=== PATIENT | male | born 1960 | race Caucasian/White ===

== ENCOUNTER 2018-08-12 08:32 | Inpatient (IN) | payer BC ==
[2018-08-12] MEDS ORDERED: Furosemide 100 MG/10 ML VIAL ONE (08:49)
[2018-08-12] MEDS ORDERED: Diltiazem 125 MG/25 ML ONE (08:50)
[2018-08-12] MEDS ORDERED: Nitroglycerin 2% Ointment 1 INCH/1 GM Packet ONE (08:50)
--- NOTE | 2018-08-12 09:08 | RAD ---
FFrontal radiograph chest: 08/12/2018 Comparison: 05/04/2012 History: Difficulty breathing, tachycardia FINDINGS: New pulmonary vascular congestion with new interstitial opacity in the lung bases and perih ilar regions. New bilateral small pleural effusions. New alveolar opacity in bilateral lung bases. IMPRESSION: Findings suggesting interval development of pulmonary edema. Follow-up imaging following treatment to document resolution is advised.
[2018-08-12] MEDS ORDERED: Diltiazem HCl 125 MG, Admixture Fee 1 EACH in Sodium Chloride 0.9% 100 ML IVPB SCH (09:15)
[2018-08-12 09:22] LABS: #Basophils 0.1 thou/uL (0.0-0.2); #Eosinphils 0.2 thou/uL (0.0-0.7); #Lymphocytes 1.7 thou/uL (1.20-3.40); #Monocytes 0.9 thou/uL (0.11-0.59); #Neutrophils 9.8 thou/uL (1.40-6.50); %Basophils 0.5 % (0.0-1.0); %Eosinophils 1.3 % (0.0-10.0); %Lymphocytes 13.7 % (21.0-51.0); %Monocytes 7.1 % (0.0-10.0); %Neutrophils 77.4 % (42.0-75.0); Hemoglobin 13.2 g/dL (14.0-18.0); Mean Corpuscular HGB CONC 32.6 g/dL (32.0-36.0); Mean Corpuscular Hemoglobin 29.4 pg (27.0-31.0); Mean Corpuscular Volume 90.1 fL (78.0-98.0); Mean Platelet Volume 7.4 fL (7.4-10.4); Platelet Count 278 thou/uL (130-400); RBC Distribution Width 12.3 % (11.5-14.5); Red Blood Cell (RBC) Count 4.51 mill/uL (4.70-6.10); White Blood Cell (WBC) Count 12.7 thou/uL (4.8-10.8)
[2018-08-12 09:40] LABS: ALT (SGPT) 14 U/L (8-55); AST (SGOT) 16 U/L (5-34); Albumin 3.9 g/dL (3.5-5.0); Alkaline Phosphatase 85 U/L (40-150); Anion Gap 10 mmol/L (10-20); BUN (Urea Nitrogen) 13 mg/dL (8.4-25.7); Bilirubin, Total 0.4 mg/dL (0.2-1.2); CK (CPK) 87 U/L (30-200); Calc. Creatinine Clearance 0 mL/min (70-130); Carbon Dioxide 26 mmol/L (22-29); Chloride 110 mmol/L (98-107); Estimated GFR-MDRD Greater than 90; Globulin 3.1 g/dL (2.4-3.5); Glucose 101 mg/dL (70-105); Sodium 142 mmol/L (136-145)
[2018-08-12 09:52] LABS: Bilirubin Negative (Negative); Blood, Urine Trace (Negative); Clarity CLEAR (Clear); Glucose, Urine (Dipstick) Negative (Negative); Leukocyte Small (Negative); Nitrite Negative (Negative); Protein, Urine (Dipstick) 30 mg/dL (Neg-Trace); Urobilinogen 0.2 mg/dL (0.2-1.0)
[2018-08-12 09:55] LABS: Bacteria/HPF None Seen HPF (None Seen); Hyaline Casts/LPF 0-3 HYALINE CAST LPF (0-3 Hyaline); Pathc Cast-AUWi Flag 0.54 (0-2.49); RBC/HPF 0-3 HPF (0-3); Squamous Epithelial None Seen HPF (0-3)
[2018-08-12] MEDS ORDERED: Enoxaparin Sodium 100 MG/ML SYRINGE ONE (10:38)
[2018-08-12 11:26] LABS: CKMB 2.5 ng/mL (0-6.6)
[2018-08-12] MEDS ORDERED: Acetaminophen 325 MG TAB PO PRN (12:16)
[2018-08-12] MEDS ORDERED: Dextrose 50% Abboject 50 ML SYRINGE SLOW IVP PRN (12:17)
[2018-08-12] MEDS ORDERED: HumaLOG 300 UNITS/3 ML VIAL SC PRN (12:17)
[2018-08-12] MEDS ORDERED: Dextrose 5% in Water 1,000 ML IV PRN (12:17)
[2018-08-12] MEDS ORDERED: cefTRIAXone\\ROCEPHIN 1 GM VIAL ONE (12:56)
[2018-08-12] MEDS: Ipratropium Bromide 2.5 ml Neb NEB SCH ×3 (13:54→23:59)
[2018-08-12 14:06] LABS: Troponin I 0.132 ng/mL (< 0.028)
--- NOTE | 2018-08-12 14:13 | CT ---
FCTA Angio Chest W WO Con History:Shortness of breath x6 days. Comparison: Chest x-ray done today. Findings: There are some infiltrative changes within the anterior segment of the right upper lobe in a paramediastinal location in the region of the anterior recess. Moderate size bilateral pleural effusions with moderate bibasilar atelectatic lung changes are seen. No significant mediastinal or hilar adenopathy. The thoracic aorta is normal in caliber. Pulmonary artery opacification is good. There is no CT evidence for pulmonary embolus. Visualized liver parenchyma shows no focal findings. Impression: 1. Moderate bilateral pleural effusions with bibasilar atelectasis. 2. Infiltrative lung changes within the right upper lobe. 3. No CT evidence for pulmonary embolus.
[2018-08-12] MEDS ORDERED: ISOVUE-370 76%-LOCM 1 ML ONE (15:08)
[2018-08-12] MEDS ORDERED: Azithromycin 500 MG VIAL ONE (16:32)
[2018-08-12] MEDS: Azithromycin 500 MG in Sodium Chloride 0.9% 250 ML 250 ML IVPB SCH (16:38)
[2018-08-12 17:11] LABS: Troponin I 0.169 ng/mL (< 0.028)
[2018-08-12 18:03] VITALS: BMI 28.1
--- NOTE | 2018-08-12 18:46 | HP ---
CHIEF COMPLAINT: Shortness of breath. HISTORY OF PRESENT ILLNESS: The patient is a 58-year-old male with history of hypertension, diabetes, who has been on and off his medications for the past few years, who presents to the hospital with worsening shortness of breath. The patient stated that he has been complaining of cough for the past week. However, today when he was driving from work, he had sudden onset of shortness of breath and got very dizzy and felt that his heart was beating very fast. The patient denied any chest pain or chest pressure. The patient states that there has been times that he has had some paroxysmal nocturnal dyspnea. The patient denies any fevers. Did state that he has been having some chills for the past week. Denies any cough, however, the patient states that he has been feeling unwell. He has been able to continue working, however, has not felt weakness. The patient also states that about a week ago, he stopped smoking because he has been feeling unwell. The patient is a 2-pack smoker. The patient has had significant amount of weight loss for the past year. Also, he has had decreased appetite. ED COURSE: The patient was found to be in atrial fibrillation with rapid ventricular response at rate of 200 per the ED physician in the EMS. He was given some medications to bring his heart rate down. In the ER, his heart rate was 124. At this time, the patient was put on a Cardizem drip and also based on his heart score, he was given Lovenox. PAST MEDICAL HISTORY: Hypertension, diabetes, and dyslipidemia. PAST SURGICAL HISTORY: He has had no surgeries. SOCIAL HISTORY: He smokes 2 packs a day for many years. Denies any alcohol use or drug use. ALLERGIES: NO KNOWN DRUG ALLERGIES. MEDICATIONS: The patient has been asked to bring his medication list. The patient states that he does take insulin and antihypertensive. FAMILY HISTORY: No history of heart disease, strokes or cancers. REVIEW OF SYSTEMS: All negative except for the ones mentioned in the HPI. PHYSICAL EXAMINATION: VITAL SIGNS: Are as of the following; his temperature is 97.9, 16, 123/73, pulse currently 93, he is back to sinus rhythm, 97% on BiPAP. GENERAL: He is awake, alert, and oriented x3. Does not appear in any distress. He does have a BiPAP on. HEENT: Normocephalic, atraumatic. No lymphadenopathy noted. Pupils are equal and reactive to light. CV: Irregularly irregular rhythm. No murmurs or gallops heard. LUNGS: Mild crackles to bilateral lower bases and mild rhonchi. No wheezing noted. ABDOMEN: Soft and nontender. Bowel sounds are present x2. EXTREMITIES: He does have +1 bilateral lower extremity pitting edema. NEUROVASCULAR: No focal deficits noted. SKIN: No cuts, lesions, or bruises noted. LABORATORY RESULTS: As of the following. The patient's WBC is 12.7, hemoglobin of 13.2, hematocrit of 40.6, his platelets of 278. Chemistry; sodium of 142. There is no potassium ordered and I am not sure why. BUN is 13, creatinine 0.71. His BNP is 1255. His urine appears to be essentially normal. EKG, atrial fibrillation/flutter. Chest x-ray shows bilateral pleural effusion and also possible some opacity in bilateral lung bases. ASSESSMENT AND PLAN: The patient is a 58-year-old male, who comes into the hospital with shortness of breath. 1. Shortness of breath, most likely secondary either flash pulmonary edema secondary to being in atrial fibrillation with rapid ventricular response versus heart failure, unknown type versus pneumonia versus pulmonary embolism. The patient did state that he has been having some shortness of breath and cough for the past week. I will go ahead and do a CT to rule out pulmonary embolism. Also get a better understanding of his lungs for possible pneumonia since he just has mildly elevated leukocytosis, that will also help us better understand the fact that the patient has been losing a lot of weight. Given his history of 2 packs a day smoking history, I am going to rule out any kind of lung pathology. Also, we will get an echocardiogram to check his cardiac status. The patient has been converted back to normal sinus. We will continue his Lovenox for now. Also, I will start him on community-acquired medications for pneumonia with ceftriaxone and azithromycin. We will also start patient on some Lasix. 2. Hypertension. We will continue his home medications. 3. Diabetes. We will continue his home medications. We will check his hemoglobin A1c. 4. Deep venous thrombosis prophylaxis. The patient will already be on Lovenox and I will get Cardiology to see this patient. Job ID: [id number]
[2018-08-12] MEDS: cefTRIAXone\\ROCEPHIN 1 GM in Sodium Chloride 0.9% 100 ML IVPB SCH (18:49)
--- NOTE | 2018-08-12 20:01 | CON ---
DATE OF CONSULTATION: 08/12/2018 REASON FOR CONSULTATION: Atrial fibrillation with RVR. HISTORY OF PRESENT ILLNESS: Mr. Kathleen is a pleasant 58-year-old gentleman, who has not been seen or evaluated by Cardiology in the past. He recently presented with increased shortness of breath over a week. He also complained of lower extremity edema. He states intermittently he was awakened up with difficulty breathing. No chest pain or pressure noted. He did have associated lower extremity edema. He was found to be in atrial fibrillation with RVR. PAST MEDICAL HISTORY: Hypertension, diabetes mellitus, and hyperlipidemia. SOCIAL HISTORY: Positive tobacco use, although quit 2 weeks ago. ALLERGIES: NONE. HOME MEDICATIONS: Unknown. FAMILY HISTORY: Negative for CAD. REVIEW OF SYSTEMS: A 10-point review of systems is reviewed and as above, otherwise negative. PHYSICAL EXAMINATION: GENERAL: Patient is a pleasant man, who is in no acute distress. He does appear older than stated age. VITAL SIGNS: Blood pressure 120/73, pulse 98, temperature 98.7. NEUROLOGIC: The patient is alert and oriented x3 with no focal neurologic deficits. HEENT: Sclerae without icterus. Mouth has moist mucous membranes with normal pallor. NECK: No JVD. Carotid upstroke brisk. No bruits bilaterally. LUNGS: Clear to auscultation with unlabored respirations. BACK: No scoliosis or kyphosis. CARDIAC: Regular rate and rhythm with normal S1 and S2. No S3 or S4 noted. No significant rubs, murmurs, thrills, or gallops noted throughout the precordium. PMI is not displaced. There is no parasternal heave. ABDOMEN: Soft, nontender, nondistended. No peritoneal signs present. No hepatosplenomegaly. No abnormal striae. EXTREMITIES: 2+ femoral and 2+ dorsalis pedis pulses. No cyanosis, clubbing, or edema. SKIN: No gross abnormalities. PERTINENT LABORATORY DATA: Hemoglobin 13.2. Creatinine 0.71. BNP of 1255. Troponin 0.074. IMPRESSION: 1. Atrial fibrillation. 2. Chronic obstructive pulmonary disease. 3. Shortness of breath. 4. Lower extremity edema. 5. Tobacco abuse. RECOMMENDATIONS: Mr. Kathleen's symptoms maybe due to underlying atrial fibrillation in addition to COPD. A CT scan did suggest a right upper lobe infiltrate, suggesting pneumonia. He was placed on antibiotic therapy appropriately. We will continue rate control. He is currently on Lovenox in addition to Cardizem IV. We would recommend p.ailin [place] for better rate control. Job ID: [id number]
[2018-08-12] MEDS: Enoxaparin Sodium 80 MG/0.8 ML SYRINGE SC SCH (21:31)
[2018-08-12] MEDS: Insulin Glargine 6 UNITS in Pre-Filled Syringe SC SCH (22:07)
[2018-08-13 05:43] LABS: #Basophils 0.1 thou/uL (0.0-0.2); #Eosinphils 0.2 thou/uL (0.0-0.7); #Lymphocytes 2.5 thou/uL (1.20-3.40); #Monocytes 0.9 thou/uL (0.11-0.59); #Neutrophils 7.1 thou/uL (1.40-6.50); %Basophils 0.9 % (0.0-1.0); %Eosinophils 1.6 % (0.0-10.0); %Lymphocytes 22.7 % (21.0-51.0); %Monocytes 8.6 % (0.0-10.0); %Neutrophils 66.2 % (42.0-75.0); Hemoglobin 12.6 g/dL (14.0-18.0); Mean Corpuscular HGB CONC 32.9 g/dL (32.0-36.0); Mean Corpuscular Hemoglobin 29.7 pg (27.0-31.0); Mean Corpuscular Volume 90.1 fL (78.0-98.0); Mean Platelet Volume 7.3 fL (7.4-10.4); Platelet Count 286 thou/uL (130-400); RBC Distribution Width 12.4 % (11.5-14.5); Red Blood Cell (RBC) Count 4.26 mill/uL (4.70-6.10); White Blood Cell (WBC) Count 10.8 thou/uL (4.8-10.8)
[2018-08-13 06:07] LABS: Anion Gap 11 mmol/L (10-20); BUN (Urea Nitrogen) 17 mg/dL (8.4-25.7); Calc. Creatinine Clearance 138 mL/min (70-130); Carbon Dioxide 27 mmol/L (22-29); Chloride 107 mmol/L (98-107); Estimated GFR-MDRD Greater than 90; Glucose 76 mg/dL (70-105); Magnesium 1.9 mg/dL (1.6-2.6); Sodium 141 mmol/L (136-145)
[2018-08-13] MEDS: Ipratropium Bromide 2.5 ml Neb NEB SCH ×3 (06:55→18:54)
[2018-08-13] MEDS ORDERED: Eucerin (Mineral Oil/Petrolatum,White) 30 gm Jar TOP PRN (07:35)
[2018-08-13] MEDS ORDERED: Diabetic Tussin 200 MG/10 ML UDCUP PO PRN (07:35)
[2018-08-13] MEDS ORDERED: Nitroglycerin 0.4 MG TAB (25 Tab Bottle) SL PRN (07:35)
[2018-08-13] MEDS ORDERED: Senokot S 8.6-50 MG TAB PO PRN (07:35)
[2018-08-13] MEDS ORDERED: Ondansetron ODT 4 MG TAB PO PRN (07:35)
[2018-08-13] MEDS ORDERED: Sodium Chloride 0.65% Nasal 44 ML BOT EA NARE PRN (07:35)
[2018-08-13] MEDS ORDERED: Loperamide HCl 2 MG CAP PO PRN (07:35)
[2018-08-13] MEDS ORDERED: Artificial Tears 18 DROP/0.9 ML EA EYE PRN (07:35)
[2018-08-13] MEDS ORDERED: hydrALAZINE 20 MG/ML VIAL SLOW IVP PRN (07:35)
[2018-08-13] MEDS ORDERED: Zolpidem Tartrate 5 MG TAB PO PRN (07:35)
[2018-08-13] MEDS ORDERED: Acetaminophen 500 MG TAB PO PRN (07:35)
[2018-08-13] MEDS ORDERED: Bisacodyl 5 MG TAB PO PRN (07:35)
[2018-08-13] MEDS ORDERED: Cepastat Lozenges 1 LOZ PO PRN (07:35)
[2018-08-13] MEDS ORDERED: HYDROcodone/Acetaminophen 5/325 mg Tablet PO PRN (07:35)
[2018-08-13] MEDS ORDERED: Ondansetron PF 4 MG/2 ML Vial IVP PRN (07:35)
[2018-08-13] MEDS ORDERED: Loratadine 10 MG TAB PO PRN (07:35)
[2018-08-13] MEDS: Enoxaparin Sodium 80 MG/0.8 ML SYRINGE SC SCH ×2 (08:49→21:45)
[2018-08-13] MEDS: Furosemide 40 MG/4 ML VIAL SLOW IVP SCH (08:49)
--- NOTE | 2018-08-13 10:27 | PDOC.PN ---
- Subjective Encounter Start Date: 08/13/18 Encounter Start Time: 07:50 Patient seen and examined. No new complaints. No overnight events - Objective Resuscitation Status - Order Detail: 08/12/18 12:16 Resuscitation Status Routine Resuscitation Status: FULL: Full Resuscitation MAR Reviewed: Yes Vital Signs & Weight: Vital Signs (12 hours) Temp Pulse Resp BP Pulse Ox 08/13/18 08:00 98.2 F 94 18 153/72 H 96 08/13/18 06:57 93 L 08/13/18 06:55 90 12 08/13/18 04:28 99.4 F 92 17 138/71 92 L 08/12/18 23:59 92 20 92 L Weight Weight 182 lb 12.8 oz I&O: 08/12/18 08/13/18 08/14/18 06:59 06:59 06:59 Intake Total 300 Output Total 725 Balance -425 Result Diagrams: 08/13/18 05:27 08/13/18 05:27 Additional Labs: Accuchecks 08/12/18 20:24 POC Glucose 165 H Radiology Reviewed by me: Yes EKG Reviewed by me: Yes Phys Exam - Physical Examination Constitutional: NAD HEENT: PERRLA, moist MMs, sclera anicteric Neck: no JVD, supple Respiratory: no wheezing, no rales, no rhonchi Cardiovascular: RRR, no significant murmur, no rub Gastrointestinal: soft, non-tender, no distention, positive bowel sounds Musculoskeletal: no edema, pulses present Neurological: non-focal, normal sensation Lymphatic: no nodes Psychiatric: normal affect, A&O x 3 Skin: no rash, normal turgor Dx/Plan (1) Acute diastolic ACC/AHA stage C congestive heart failure Code(s): I50.31 - ACUTE DIASTOLIC (CONGESTIVE) HEART FAILURE Status: Acute (2) Atrial fibrillation with RVR Code(s): I48.91 - UNSPECIFIED ATRIAL FIBRILLATION Status: Acute (3) Elevated brain natriuretic peptide (BNP) level Code(s): R79.89 - OTHER SPECIFIED ABNORMAL FINDINGS OF BLOOD CHEMISTRY Status : Acute (4) Right upper lobe pulmonary infiltrate Code(s): R91.8 - OTHER NONSPECIFIC ABNORMAL FINDING OF LUNG FIELD Status: Acute (5) Type [address] elevation Code(s): I21.A1 - MYOCARDIAL INFARCTION TYPE 2 Status: Acute (6) Diabetes type 2, controlled Code(s): E11.9 - TYPE 2 DIABETES MELLITUS WITHOUT COMPLICATIONS Status: Chronic (7) Dyslipidemia Code(s): E78.5 - HYPERLIPIDEMIA, UNSPECIFIED Status: Chronic (8) Hypertension Code(s): I10 - ESSENTIAL (PRIMARY) HYPERTENSION Status: Chronic - Plan cont current plan of care, plan discussed w/ family, continue antibiotics * continue rocephin and azithromycin * continue lasix * echo pending * medication reviewed as below * symptomatic treatment. Review of Systems - Review of Systems ENT: negative: Ear Pain, Ear Discharge, Nose Pain, Nose Discharge, Nose Congestion, Mouth Pain, Mouth Swelling, Throat Pain, Throat Swelling, Other Respiratory: negative: Cough, Dry, Shortness of Breath, Hemoptysis, SOB with Excertion, Pleuritic Pain, Sputum, Wheezing Cardiovascular: negative: chest pain, palpitations, orthopnea, paroxysmal nocturnal dyspnea, edema, light headedness, other Gastrointestinal: negative: Nausea, Vomiting, Abdominal Pain, Diarrhea, Constipation, Melena, Hematochezia, Other Genitourinary: negative: Dysuria, Frequency, Incontinence, Hematuria, Retention , Other Musculoskeletal: negative: Neck Pain, Shoulder Pain, Arm Pain, Back Pain, Hand Pain, Leg Pain, Foot Pain, Other - Medications/Allergies Allergies/Adverse Reactions: Allergies Allergy/AdvReac Type Severity Reaction Status Date / Time No Known Drug Allergies Allergy Verified 08/13/18 08:03 Medications: Current Medications Acetaminophen (Tylenol) 500 mg PO Q6H PRN PRN Reason: Mild Pain (1-3) Hydrocodone Bitart/Acetaminophen ([place] 5/325) 1 tab PO Q4H PRN PRN Reason: Moderate Pain (4-6) Artificial Tears (Tears Naturale) 2 drop EA EYE PRN PRN PRN Reason: Dry Eyes Bisacodyl (Dulcolax) 10 mg PO DAILYPRN PRN PRN Reason: Constipation Dextrose/Water (Dextrose 50%) 25 gm SLOW IVP PRN PRN PRN Reason: Hypoglycemia Diltiazem HCl (Cardizem Cd) 180 mg PO DAILY [facility] [place] Last Admin: 08/13/18 08:49 Dose: 180 mg Enoxaparin Sodium (Lovenox) 80 mg SC 0900,2100 [facility] [place] Last Admin: 08/13/18 08:49 Dose: 80 mg Furosemide (Lasix) 40 mg SLOW IVP DAILY [facility] [place] Last Admin: 08/13/18 08:49 Dose: 40 mg Glucagon (Glucagon) 1 mg IM PRN PRN PRN Reason: Hypoglycemia Guaifenesin (Robitussin Sf) 200 mg PO Q4H PRN PRN Reason: Cough Hydralazine HCl (Apresoline) 10 mg SLOW IVP Q4H PRN PRN Reason: SBP > 180 and HR < 70 Dextrose/Water (D5w) 1,000 mls @ 0 mls/hr IV .Q0M PRN PRN Reason: Hypoglycemia Azithromycin 500 mg/ Sodium (Chloride) 250 mls @ 250 mls/hr IVPB Q24HR [facility] [place] Last Admin: 08/12/18 16:38 Dose: 250 mls Ceftriaxone Sodium 1 gm/ (Sodium Chloride) 100 mls @ 200 mls/hr IVPB Q24HR [facility] [place] Last Admin: 08/12/18 18:49 Dose: Not Given Insulin Glargine 6 units/ (Miscellaneous Medication) 0.06 mls @ 0 mls/hr SC [facility] Last Admin: 08/12/18 22:07 Dose: 0.06 mls Insulin Human Lispro (Humalog) 0 units SC .MILD SLIDING SCALE PRN PRN Reason: Mild Correctional Scale Ipratropium [place] (Atrovent) 2.5 ml NEB [id number] [facility] [place] Last Admin: 08/13/18 06:55 Dose: 2.5 ml Loperamide HCl (Imodium) 2 mg PO PRN PRN PRN Reason: Diarrhea/Loose Stools Loratadine (Claritin) 10 mg PO DAILYPRN PRN PRN Reason: Sinus Symptoms Mineral Oil/White Petrolatum (Eucerin Cream) 0 gm TOP BIDPRN PRN PRN Reason: Dry Skin Nitroglycerin (Nitrostat) 0.4 mg SL Q5MIN PRN PRN Reason: Chest Pain Ondansetron HCl (Zofran Odt) 4 mg PO Q6H PRN PRN Reason: Nausea/Vomiting Ondansetron HCl (Zofran) 4 mg IVP Q6H PRN PRN Reason: Nausea/Vomiting Senna/Docusate Sodium (Senokot S) 2 tab PO BID PRN PRN Reason: Constipation Sodium Chloride ([place] 0.65%) 0 ml EA NARE QIDPRN PRN PRN Reason: Nasal Congestion Throat Lozenges (Cepastat Lozenges) 1 eri PO Q2H PRN PRN Reason: Sore Throat Zolpidem Tartrate (Ambien) 5 mg PO HSPRN PRN PRN Reason: Insomnia
[2018-08-13] MEDS: Azithromycin 500 MG in Sodium Chloride 0.9% 250 ML 250 ML IVPB SCH (13:13)
[2018-08-13] MEDS: cefTRIAXone\\ROCEPHIN 1 GM in Sodium Chloride 0.9% 100 ML IVPB SCH (13:13)
[2018-08-13] MEDS ORDERED: Aspirin 325 MG TAB PO SCH (16:30)
--- NOTE | 2018-08-13 16:39 | PDOC.CTH ---
Cardiology Progress Note - Subjective C/O SOB. No CP. - Objective Vital Signs Temp Pulse Resp BP Pulse Ox 08/13/18 13:43 94 16 08/13/18 08:00 98.2 F 94 18 153/72 H 96 08/13/18 06:57 93 L 08/13/18 06:55 90 12 Weight 182 lb 12.8 oz 08/12/18 08/13/18 08/14/18 06:59 06:59 06:59 Intake Total 300 Output Total 725 Balance -425 - Physical Examination General/Neuro: alert & oriented x3 Neck: no JVD present Lungs: other: Heart: RRR - Telemetry Telemetry Rhythm: bilateral expiratory wheeze - Labs Result Diagrams: 08/13/18 05:27 08/13/18 05:27 Troponin/CKMB CK-MB (CK-2) 2.5 ng/mL (0-6.6) 08/12/18 10:35 Troponin I 0.169 ng/mL (< 0.028) H 08/12/18 16:42 - Assessment/Plan 1. Acute on chronic diastolic CHF 2. COPD 3. AFlutter - NSR Discussed with Dr. Lai. ASA and CCB only for now. Continue diuresis. If recurrent, consider NOAC. Will need 30 day EVR at discharge.
[2018-08-13] MEDS: Insulin Glargine 6 UNITS in Pre-Filled Syringe SC SCH (21:45)
[2018-08-14] MEDS: Ipratropium Bromide 2.5 ml Neb NEB SCH ×4 (00:36→18:28)
[2018-08-14 05:07] LABS: #Basophils 0.1 thou/uL (0.0-0.2); #Eosinphils 0.2 thou/uL (0.0-0.7); #Lymphocytes 2.8 thou/uL (1.20-3.40); #Monocytes 0.9 thou/uL (0.11-0.59); %Basophils 1.1 % (0.0-1.0); %Eosinophils 1.8 % (0.0-10.0); %Lymphocytes 27.9 % (21.0-51.0); %Monocytes 8.8 % (0.0-10.0); %Neutrophils 60.3 % (42.0-75.0); Hemoglobin 12.2 g/dL (14.0-18.0); Mean Corpuscular HGB CONC 32.7 g/dL (32.0-36.0); Mean Corpuscular Hemoglobin 29.8 pg (27.0-31.0); Mean Corpuscular Volume 91.1 fL (78.0-98.0); Mean Platelet Volume 7.4 fL (7.4-10.4); Platelet Count 268 thou/uL (130-400); RBC Distribution Width 12.3 % (11.5-14.5); Red Blood Cell (RBC) Count 4.08 mill/uL (4.70-6.10)
[2018-08-14 05:28] LABS: Anion Gap 12 mmol/L (10-20); BUN (Urea Nitrogen) 22 mg/dL (8.4-25.7); Calc. Creatinine Clearance 137 mL/min (70-130); Calcium 8.9 mg/dL (7.8-10.44); Carbon Dioxide 24 mmol/L (22-29); Chloride 108 mmol/L (98-107); Estimated GFR-MDRD Greater than 90; Glucose 106 mg/dL (70-105); Magnesium 1.9 mg/dL (1.6-2.6); Potassium 3.8 mmol/L (3.5-5.1); Sodium 140 mmol/L (136-145)
[2018-08-14] MEDS: Aspirin 325 MG TAB PO SCH (08:49)
[2018-08-14] MEDS: Enoxaparin Sodium 80 MG/0.8 ML SYRINGE SC SCH (08:50)
[2018-08-14] MEDS: Furosemide 40 MG/4 ML VIAL SLOW IVP SCH (08:50)
--- NOTE | 2018-08-14 10:05 | PDOC.PN ---
- Subjective Encounter Start Date: 08/14/18 (f/u diabetes) Encounter Start Time: 10:03 Subjective: Pt reports his breathing is better. Some SOB with ambulation. Denies -: n/v/abd pain. Denies any new sx - Objective Resuscitation Status - Order Detail: 08/12/18 12:16 Resuscitation Status Routine Resuscitation Status: FULL: Full Resuscitation Vital Signs & Weight: Vital Signs (12 hours) Temp Pulse Resp BP Pulse Ox 08/14/18 08:00 98.6 F 89 17 137/76 93 L 08/14/18 07:49 84 12 08/14/18 03:38 98.2 F 87 16 125/70 93 L 08/14/18 00:36 85 16 94 L Weight Weight 182 lb I&O: 08/13/18 08/14/18 08/15/18 06:59 06:59 06:59 Intake Total 300 1250 Output Total 725 1500 Balance -425 -250 Result Diagrams: 08/14/18 04:49 08/14/18 04:49 Additional Labs: Accuchecks 08/14/18 08/13/18 08/13/18 05:58 20:35 16:53 POC Glucose 118 H 216 H 134 H 08/13/18 08/13/18 11:13 05:21 POC Glucose 125 H 74 EKG Reviewed by me: Yes (tele - sinus 80-90's) Phys Exam - Physical Examination Constitutional: NAD Respiratory: no wheezing, no rhonchi faint rales at left base Cardiovascular: RRR, no significant murmur Gastrointestinal: soft, non-tender, no distention, positive bowel sounds 1+ edema bilateral Neurological: non-focal Psychiatric: normal affect Skin: no rash Dx/Plan (1) Systolic and diastolic CHF, acute Code(s): I50.41 - ACUTE COMBINED SYSTOLIC AND DIASTOLIC (CONGESTIVE) HRT FAIL Status: Acute (2) Right upper lobe pulmonary infiltrate Code(s): R91.8 - OTHER NONSPECIFIC ABNORMAL FINDING OF LUNG FIELD Status: Acute (3) Diabetes type 2, controlled Code(s): E11.9 - TYPE 2 DIABETES MELLITUS WITHOUT COMPLICATIONS Status: Chronic Qualifiers: Diabetes mellitus skilled nursing insulin use: with skilled nursing use (4) Dyslipidemia Code(s): E78.5 - HYPERLIPIDEMIA, UNSPECIFIED Status: Chronic (5) Hypertension Code(s): I10 - ESSENTIAL (PRIMARY) HYPERTENSION Status: Chronic (6) Neuropathy Code(s): G62.9 - POLYNEUROPATHY, UNSPECIFIED Status: Chronic (7) Anemia Code(s): D64.9 - ANEMIA, UNSPECIFIED Status: Acute - Plan * Appreciate Cardiology recommendations - on full dose aspirin, CCB. Will ask about lovenox - if needed to continue * continue current long-acting insulin, blood sugar controlled this morning * add back home gabapentin * * no change to other meds, continue to hold metformin * * anemia - mild, stable, will need outpatient evaluation for this * * dvt prophy - on full dose lovenox * gi prophy - not indicated * code status full * * anticipate d/c in the next few days based on optimizing medications and diuresis * * pt remains at high risk in current condition * reviewed plan of care, no questions or further needs at end of eval. * 17:00 - Discussed with Cards - full dose lovenox not needed and d/c
--- NOTE | 2018-08-14 10:53 | PDOC.CTH ---
Cardiology Progress Note - Subjective No overnight events. No complaints - Objective Vital Signs Temp Pulse Resp BP Pulse Ox 08/14/18 08:00 98.6 F 89 17 137/76 93 L 08/14/18 07:49 84 12 08/14/18 03:38 98.2 F 87 16 125/70 93 L 08/14/18 00:36 85 16 94 L Weight 182 lb 08/13/18 08/14/18 08/15/18 06:59 06:59 06:59 Intake Total 300 1250 Output Total 725 1500 Balance -425 -250 - Physical Examination General/Neuro: alert & oriented x3 Neck: no JVD present Lungs: other: (scattered rhonchi) Heart: RRR Abdomen: NT/ND - Telemetry Telemetry Rhythm: SR - Labs Result Diagrams: 08/14/18 04:49 08/14/18 04:49 Troponin/CKMB CK-MB (CK-2) 2.5 ng/mL (0-6.6) 08/12/18 10:35 Troponin I 0.169 ng/mL (< 0.028) H 08/12/18 16:42 - Assessment/Plan 1. Acute on chronic systolic and diastolic CHF 2. COPD 3. AFlutter - NSR Continue diuresis. Start low dose BRI, bblocker. ? outpatient stress evaluation given new decrease in EF.
[2018-08-14] MEDS ORDERED: Lisinopril 2.5 MG TAB PO SCH ×2 (11:00)
[2018-08-14] MEDS: Azithromycin 250 MG TAB PO SCH (11:14)
[2018-08-14] MEDS: cefTRIAXone\\ROCEPHIN 1 GM in Sodium Chloride 0.9% 100 ML IVPB SCH (13:06)
[2018-08-14] MEDS: Gabapentin 300 MG CAP PO SCH ×2 (15:10→21:31)
[2018-08-14] MEDS: Carvedilol 3.125 MG TAB PO SCH (17:45)
[2018-08-14] MEDS: Insulin Glargine 6 UNITS in Pre-Filled Syringe SC SCH (21:31)
[2018-08-15] MEDS: Ipratropium Bromide 2.5 ml Neb NEB SCH ×3 (00:31→12:33)
[2018-08-15 06:18] LABS: Anion Gap 11 mmol/L (10-20); BUN (Urea Nitrogen) 19 mg/dL (8.4-25.7); Calc. Creatinine Clearance 128 mL/min (70-130); Carbon Dioxide 27 mmol/L (22-29); Chloride 106 mmol/L (98-107); Estimated GFR-MDRD Greater than 90; Glucose 136 mg/dL (70-105); Potassium 3.7 mmol/L (3.5-5.1); Sodium 140 mmol/L (136-145)
--- NOTE | 2018-08-15 07:12 | PDOC.CTH ---
Cardiology Progress Note - Subjective No compaints. HR stable - Objective Vital Signs Temp Pulse Resp BP BP Pulse Ox 08/15/18 04:00 97.6 F 86 18 134/71 93 L 08/15/18 00:31 89 16 93 L 08/14/18 23:00 98.1 F 85 20 132/73 95 08/14/18 19:30 98.8 F 91 20 120/75 92 L Weight 181 lb 9.6 oz 08/14/18 08/15/18 08/16/18 06:59 06:59 06:59 Intake Total 1250 900 Output Total 1500 950 Balance -250 -50 - Physical Examination General/Neuro: alert & oriented x3, NAD Neck: carotid US brisk, no JVD present Lungs: CTA, unlabored respirations Heart: PMI normal, RRR Abdomen: NT/ND, soft Extremities: + femoral B - Telemetry Telemetry Rhythm: sr - Labs Result Diagrams: 08/14/18 04:49 08/15/18 05:30 Troponin/CKMB CK-MB (CK-2) 2.5 ng/mL (0-6.6) 08/12/18 10:35 Troponin I 0.169 ng/mL (< 0.028) H 08/12/18 16:42 - Assessment/Plan aflutter COPD Tobacco abuse MIld CM Continue medical therapy Plan is outpatient schroeder for atrial flutter; pt would like to start ACT. Recommend 3 week monitor at home Avoid BB secondary to asthma Will need EVR as outpatient; I will arrange
[2018-08-15] MEDS ORDERED: Metolazone 5 MG TAB PO SCH (09:00)
[2018-08-15] MEDS ORDERED: Lisinopril 2.5 MG TAB PO SCH (09:00)
[2018-08-15] MEDS ORDERED: Potassium Chloride 20 MEQ TAB PO SCH (09:00)
[2018-08-15] MEDS ORDERED: Enoxaparin Sodium 40 MG/0.4 ML SYRINGE SC SCH (09:00)
[2018-08-15] MEDS: Aspirin 325 MG TAB PO SCH (10:01)
[2018-08-15] MEDS: Gabapentin 300 MG CAP PO SCH ×2 (10:02→15:53)
[2018-08-15] MEDS: Carvedilol 3.125 MG TAB PO SCH ×2 (10:02→15:53)
[2018-08-15] MEDS: Furosemide 40 MG/4 ML VIAL SLOW IVP SCH (10:02)
[2018-08-15] MEDS: Azithromycin 250 MG TAB PO SCH (10:02)
--- NOTE | 2018-08-15 13:35 | EKG ---
Test Reason : STAT Blood Pressure : / mmHG Vent. Rate : 095 BPM Atrial Rate : 095 BPM P-R Int : 146 ms QRS Dur : 096 ms QT Int : 364 ms P-R-T Axes : 077 032 018 degrees QTc Int : 457 ms Normal sinus rhythm Possible Left atrial enlargement Nonspecific T wave abnormality Abnormal ECG When compared with ECG of 04-MAY-2012 21:57, Nonspecific T wave abnormality now evident in Inferior leads T wave amplitude has increased in Anterior leads Confirmed by VIRGINIE ESPAÑA, SSammi ([id number]) on 08/15/2018 1:35:05 PM Referred By: Alberto NUNEZ Confirmed By:DR. Felipe RACHEL MD
--- NOTE | 2018-08-15 15:26 | PQF ---
BRIDGETVERNON KARISHMA [id number] CLINICAL DOCUMENTATION IMPROVEMENT CLARIFICATION FORM: ICD-10 Updated PLEASE DO AN ADDENDUM TO THE PROGRESS NOTE WITH ANY DOCUMENTATION UPDATES OR ADDITIONS AND CARRY THROUGH TO DC SUMMARY. THANK YOU. DATE: 08/15/2018 ATTN:DR. Alberot NUNEZ Please exercise your independent, professional judgment in responding to the clarification form. Clinical indicators are provided on the bottom of this form for your review. Please check appropriate box(s) to clarify if the following diagnosis has been ruled in or ruled out: PNEUMONIA [x ] Ruled in diagnosis [ ] Continue to treat [ ] Resolved [ ] Ruled out diagnosis [ ] Other diagnosis [ ] Unable to determine In addition, please specify: Present on Admission (POA): [ x] Yes [ ] No [ ] Unable to determine For continuity of documentation, please document condition throughout progress notes and discharge summary. Thank You. CLINICAL INDICATORS - SIGNS / SYMPTOMS / LABS / CAT SCAN CHEST/ THORAX : IMPRESSION 1) MODERATE BILATERAL PLEURAL EFFUSIONS W BIBASILAR ATELECTASIS. 2) INFILTRATE LUNG CHANGES WITH IN THE RIGHT UPPER LOBE. 4/ H & P (MAYRA) ASSESSMENT AND PLAN: 1). SHORTNESS OF BREATH, MOST LIKELY SECONDARY TO EITHER FLASH PULMONARY EDEMA SECONDARY TO BEING IN ATRIAL FIBRILLATION W/ RAPID VENTRICULAR RESPONSE VERSUS HEART FAILURE, UNKNOWN TYPE VERSUS PNEUMONIA VERSUS PULMONARY EMBOLISM. I WILL START THE PT ON COMMUNITY ACQUIRED MEDICATIONS FOR PNEUMONIA WITH CEFTRIAXONE AND AZITHROMYCIN. 4/6 PN (DAVID) DX/PLAN: 4) RIGHT UPPER LOBE PULMONARY INFILTRATE- ACUTE 08/14 PN (LINSEY) DX/PLAN 2) RIGHT UPPER LOVE PULMONARY INFILTRATE RISK: HX OF TOBACCO USE/ABUSE COPD TREATMENTS: ROCEPHIN IV (08/13-PRESENT) ZITHROMAX IV (08/12-08/13) ZITHROMAX PO (08/14-PRESENT) NEB [place] (08/12-PRESENT) THANK YOU! ALVARO (This form is maintained as a part of the permanent medical record) 2014 [employer]. All Rights Reserved [email or web address] [phone] [email or web address]
[2018-08-15 16:16] VITALS: BP 134/76; TEMP 97.8
[2018-08-15 16:29] LABS: Anion Gap 11 mmol/L (10-20); BUN (Urea Nitrogen) 21 mg/dL (8.4-25.7); Calc. Creatinine Clearance 99 mL/min (70-130); Calcium 9.8 mg/dL (7.8-10.44); Carbon Dioxide 29 mmol/L (22-29); Chloride 103 mmol/L (98-107); Estimated GFR-MDRD 81; Glucose 165 mg/dL (70-105); Magnesium 1.9 mg/dL (1.6-2.6); Potassium 4.2 mmol/L (3.5-5.1); Sodium 139 mmol/L (136-145)
[2018-08-15] MEDS ORDERED: Apixaban 5 MG TAB PO SCH (21:00)
--- NOTE | 2018-08-16 03:35 | DIS ---
DATE OF ADMISSION: 08/12/2018 DATE OF DISCHARGE: 08/15/2018 DISCHARGE DIAGNOSES: As of the following; 1. Shortness of breath, most likely secondary to acute on chronic systolic and diastolic heart failure. 2. Right upper lobe infiltrate, most likely pneumonia, community-acquired. 3. Diabetes, uncontrolled. 4. Atrial fibrillation, aflutter. 5. Dyslipidemia. 6. Hypertension. HOSPITAL COURSE: The patient is a 58-year-old male who initially presented to the hospital with atrial fibrillation/flutter. He was started on IV Cardizem. He converted to sinus rhythm. He was seen by Cardiology and an echocardiogram was ordered. Echocardiogram indicated an EF of 40% to 45% with [id number] tricuspid regurgitation and moderate mitral regurgitation. The patient given risk factors, was started on Eliquis per cardiology's recommendation. He was not given Coreg due to his possible underlying COPD. The patient is a smoker, however, has never been diagnosed with COPD, but has been a very chronic long-time smoker. I did recommend the patient to follow with his PCP to get a PFT study. The patient also had a CTA that ruled out PE, but indicated a right upper lobe infiltrate. He was started on community-acquired pneumonia antibiotics and was transitioned to oral. The patient feels well, has been walking around without any difficulties. The patient will be discharged home. He will follow up with Cardiology in 2 to 3 weeks for further evaluation and also with his primary care. HOME MEDICATION: He is going to be on 1. Apixaban 5 mg b.i.d. 2. Lasix 20 mg daily. 3. Levaquin 500 mg daily. 4. Lisinopril 2.5 daily. 5. Gabapentin 300 mg t.i.d. 6. Metformin 500 mg b.i.d. 7. Insulin 22 units q.a.m. 8. Also, I will start him on a statin at 20 mg daily. PHYSICAL EXAMINATION: VITAL SIGNS: Temperature of 98.3, pulse 83, respirations 20, O2 sat 95% on room air, blood pressure 125/75. GENERAL: He is awake, alert, and oriented x3. Does not appear in any distress. CV: S1, S2 present. No murmurs, rubs, or gallops. ABDOMEN: Soft and nontender. Bowel sounds are present x2. EXTREMITIES: No edema. Again, he will be discharged home. He will follow up with his primary care doctor. Job ID: [id number]
== END 2018-08-15 17:26 | disposition home or self-care (01) | DRG 280 ==
LOC: ERS 08:32 → ERHOLD 10:00 → 2NO 17:47
PROVIDERS: ADMIT Internal Medicine; ATTEND Internal Medicine
DX: I11.0 Hypertensive heart disease with heart failure (principal); J18.9 Pneumonia, unspecified organism; I21.A1 Myocardial infarction type 2; I48.92 Unspecified atrial flutter; J44.0 Chronic obstructive pulmonary disease with (acute) lower respiratory infection; I48.91 Unspecified atrial fibrillation; I50.43 Acute on chronic combined systolic (congestive) and diastolic (congestive) heart failure; E78.5 Hyperlipidemia, unspecified; E11.40 Type 2 diabetes mellitus with diabetic neuropathy, unspecified; D64.9 Anemia, unspecified
CPT/HCPCS: 36415; 36416; 71045; 71275; 80048; 80053; 81003; 81015; 82550; 82553; 83735; 83880; 84443; 84484; 85025; 93005; 93010; 93306; 94640; 94660; 94760; 96365; 96366; 96372; 96375; 99292; J0456; J0696; J1650; J1825; J1940; J7050; Q9966

== ENCOUNTER 2020-01-13 08:53 | Inpatient (IN) | payer BC, OTHER ==
[2020-01-13] MEDS ORDERED: Furosemide 40 MG/4 ML VIAL ONE (09:05)
[2020-01-13] MEDS ORDERED: Nitroglycerin 2% Ointment 1 INCH/1 GM Packet ONE (09:05)
[2020-01-13] MEDS ORDERED: Aspirin Chewable 81 MG TAB ONE (09:25)
[2020-01-13 09:28] LABS: #Basophils 0.1 thou/uL (0.0-0.2); #Eosinphils 0.2 thou/uL (0.0-0.7); #Lymphocytes 1.9 thou/uL (1.20-3.40); #Monocytes 0.6 thou/uL (0.11-0.59); #Neutrophils 7.5 thou/uL (1.40-6.50); %Basophils 0.7 % (0.0-1.0); %Lymphocytes 18.7 % (21.0-51.0); %Monocytes 6.2 % (0.0-10.0); %Neutrophils 72.5 % (42.0-75.0); Hemoglobin 14.7 g/dL (14.0-18.0); Mean Corpuscular HGB CONC 32.1 g/dL (32.0-36.0); Mean Corpuscular Hemoglobin 28.5 pg (27.0-31.0); Mean Corpuscular Volume 88.9 fL (78.0-98.0); Mean Platelet Volume 8.8 fL (7.4-10.4); Platelet Count 206 thou/uL (130-400); RBC Distribution Width 12.6 % (11.5-14.5); Red Blood Cell (RBC) Count 5.16 mill/uL (4.70-6.10); White Blood Cell (WBC) Count 10.3 thou/uL (4.8-10.8)
[2020-01-13 09:48] LABS: ALT (SGPT) 11 U/L (8-55); AST (SGOT) 11 U/L (5-34); Albumin 3.7 g/dL (3.5-5.0); Alkaline Phosphatase 90 U/L (40-110); Anion Gap 10 mmol/L (10-20); BUN (Urea Nitrogen) 19 mg/dL (8.4-25.7); Bilirubin, Total 0.5 mg/dL (0.2-1.2); CK (CPK) 54 U/L (30-200); Calc. Creatinine Clearance 0 mL/min (70-130); Calcium 9.2 mg/dL (7.8-10.44); Carbon Dioxide 26 mmol/L (22-29); Chloride 106 mmol/L (98-107); Estimated GFR-MDRD 80; Globulin 3.2 g/dL (2.4-3.5); Glucose 289 mg/dL (70-105); Lipase 11 U/L (8-78); Potassium 4.2 mmol/L (3.5-5.1); Protein, Total 6.9 g/dL (6.0-8.3); Sodium 138 mmol/L (136-145)
--- NOTE | 2020-01-13 09:48 | RAD ---
CHEST 1 VIEW: HISTORY: Respiratory distress and CHF. COMPARISON: Radiograph 08/12/2018. FINDINGS: The heart size remains normal. The pulmonary arteries are mildly distended. No pneumothorax. No ef fusion. No acute osseous abnormality. IMPRESSION: No acute intrathoracic abnormality. POS: HOME
[2020-01-13 10:10] LABS: CKMB 2.4 ng/mL (0-6.6)
[2020-01-13] MEDS ORDERED: Ondansetron PF 4 MG/2 ML Vial IVP PRN ×2 (13:20→14:12)
[2020-01-13] MEDS ORDERED: Ondansetron ODT 4 MG TAB SL PRN (13:20)
[2020-01-13] MEDS ORDERED: Labetalol HCl 100 MG/20 ML VIAL SLOW IVP PRN (14:12)
[2020-01-13] MEDS ORDERED: Ondansetron ODT 4 MG TAB PO PRN (14:12)
[2020-01-13] MEDS ORDERED: Nitroglycerin 0.4 MG TAB (25 Tab Bottle) PO PRN (14:12)
[2020-01-13] MEDS ORDERED: Acetaminophen 500 MG TAB PO PRN (14:12)
[2020-01-13] MEDS ORDERED: Dextrose 50% Abboject 50 ML SYRINGE SLOW IVP PRN (14:12)
[2020-01-13] MEDS ORDERED: hydrALAZINE 20 MG/ML VIAL SLOW IVP PRN (14:12)
[2020-01-13] MEDS ORDERED: HumaLOG 300 UNITS/3 ML VIAL SC PRN (14:12)
[2020-01-13] MEDS ORDERED: Dextrose 5% in Water 1,000 ML IV PRN (14:12)
[2020-01-13 15:17] LABS: Troponin I 1.161 ng/mL (< 0.028)
[2020-01-13] MEDS: Gabapentin 300 MG CAP PO SCH ×2 (15:56→20:05)
[2020-01-13] MEDS: metFORMIN 500 MG TAB PO SCH (15:56)
[2020-01-13] MEDS: HumaLOG 300 UNITS/3 ML VIAL SC PRN (15:56)
--- NOTE | 2020-01-13 17:28 | CON ---
DATE OF CONSULTATION: 01/13/2020 INDICATIONS FOR CONSULTATION: A 59-year-old gentleman with a history of diabetes, hypertension, and long history of tobacco abuse, who presented yesterday evening. He has been having some shortness of breath. He said last night he was unable to lie down on the bed, he could not breathe, he sat up on the side of the bed. He presented to the emergency room this morning. He has also been complaining of some heaviness in his chest and he said that he has been having this for quite some time. He does not do any significant physical exertion. 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 In the emergency room this morning, his troponin-I was 0.154, BNP was 680, and blood sugar was 289. This is the first set of his enzymes. There are no further enzymes at this time. He actually was, I believe, seen in the past by Dr. Lai back in 08/2018. At that time, he also had been presented with increasing shortness of breath and some lower extremity edema and was diagnosed with congestive heart failure. He was also found to be in atrial fibrillation with rapid ventricular response. His echocardiogram in 08/2018 showed ejection fraction of 40% to 45% with evidence of diastolic dysfunction with moderate mitral valve regurgitation, [id number] tricuspid valve regurgitation. I do not see that he had a stress test performed. It does not appear that he has had followup in the office. At this time, he denies any chest pain. We will continue to trend the cardiac enzymes. His EKG did not show any acute ST-segment changes. He has some minimal nonspecific ST-segment changes in the inferior leads. PAST MEDICAL HISTORY: Significant for: 1. Diabetes. 2. Peripheral neuropathy. 3. History of congestive heart failure. SOCIAL HISTORY: He continues to smoke. He says he has not smoked for the last couple of weeks. He also said that on his last admission, but mainly he smoked up to a pack to pack and half a day and smoked for over 45 years. ALLERGIES: NONE. PRESENT MEDICATIONS: Included: 1. Eliquis 2.5 mg twice a day. 2. He was taking lisinopril 2.5 mg a day. 3. Lasix 40 mg a day. 4. Metformin 500 mg, uncertain as how he was taking it. 5. He was taking also insulin pen. 6. Gabapentin. REVIEW OF SYSTEMS: A 12-point review of systems. HEENT: He says he has some problems with his right eye. He has some blurred vision, apparently this is due to his diabetes. LUNGS: He denies any pulmonary complaints. GI/: No GI or complaints. EXTREMITIES: He complains of occasional swelling and also has claudication. He has peripheral neuropathy. PHYSICAL EXAMINATION: GENERAL: A well-developed, well-nourished gentleman. He is in no acute distress at this time. He is pain free. VITAL SIGNS: Blood pressure is 152/82, he is afebrile, respiratory rate is 16, heart rate is 95, and O2 saturation 98%. HEENT: Reveals the head to be normocephalic and atraumatic. Carotid pulses are present. I did not hear any significant bruits. CHEST: Clear to auscultation. I did not hear any rales, rhonchi, or wheezing. CARDIOVASCULAR: Regular rate and rhythm at this time. There were no significant heaves or thrills. He does have a systolic murmur noted at the apex. ABDOMEN: Soft and nontender. Positive bowel sounds are present. EXTREMITIES: No clubbing or cyanosis. I cannot palpate pedal pulses, cannot palpate popliteal pulses. The femoral pulses are barely palpable. He has bilateral femoral bruits. NEUROLOGIC: The patient appears to be fully intact. I cannot elicit any gross focal or motor deficits. SKIN: Warm and dry at this time. LABORATORY DATA: Potassium 4.2, sodium was 138, BUN was 19, creatinine 0.96, and blood sugar was 289. Troponin-I was 0.154 and his BNP was 680. His WBC was 10.3, hemoglobin 14.7, hematocrit 45.9, and platelet count was 206,000. DIAGNOSTIC STUDIES: EKG showed a normal sinus rhythm with nonspecific ST-segment changes mainly in the inferior leads with some flattening with minimal ST-segment depression. IMPRESSION: 1. A 59-year-old gentleman with risk factors for coronary artery disease, which include diabetes, hypertension, as well as significant tobacco abuse with some dyspnea and what appears to be paroxysmal nocturnal dyspnea, and also abnormal cardiac enzymes. He will need to undergo further evaluation. We will continue to trend cardiac enzymes. I would suggest the following. He will need to undergo stress testing unless the enzymes continue to increase. He also needs to have a repeat echocardiogram. The last echocardiogram showed the ejection fraction to be also somewhat decreased. He has had a history of diastolic dysfunction, which may have worsened. Should the enzymes continue to trend upwards, he may need to undergo cardiac catheterization. Otherwise, we will continue to stabilize the patient at this time and treat him medically. 2. History of diastolic dysfunction with heart failure. We will again repeat the echocardiogram for evaluation of left ventricular systolic function and also diastolic function. 3. History of diabetes. This will be dealt with by the primary care service. 4. Tobacco abuse. He absolutely needs to stop smoking as this is certainly not helping him in any way. 5. Peripheral vascular disease. This can be followed up as an outpatient with vascular ultrasounds. He may also need intervention for the lower extremities. 6. Hypertension. We will continue to adjust his medications. We will continue to follow the patient with you. Job ID: [id number]
[2020-01-13] MEDS ORDERED: Nitroglycerin 2% Ointment 1 INCH/1 GM Packet TOP SCH (18:00)
[2020-01-13 18:32] LABS: Critical Call Chem Troponin I RESULT DECREASING; Troponin I 1.138 ng/mL (< 0.028)
[2020-01-13] MEDS: Apixaban 5 MG TAB PO SCH (20:05)
[2020-01-13] MEDS: Famotidine 20 MG TAB PO SCH (20:05)
[2020-01-13] MEDS ORDERED: Furosemide 40 MG/4 ML VIAL SLOW IVP SCH (21:00)
--- NOTE | 2020-01-13 22:02 | HP ---
PRIMARY CARE PROVIDER: Gianfranco Garduno M.D. CHIEF COMPLAINT: Shortness of breath. HISTORY OF PRESENT ILLNESS: This is a 59-year-old male, who presents to [facility] Emergency Department complaining of 1-day history of increased shortness of breath, mild bilateral feet swelling and difficulty lying flat in bed. The patient states he has had increased shortness of breath over the last 24 hours, sitting still and recovering over several minutes. The patient denied any fever , chills, or productive cough. The patient denied any specific change to his chronic medication regimen. He states that he takes Lasix once daily as directed by his primary care provider. The patient denied any specific dietary indiscretion, travel history, nausea, vomiting, or diarrhea. The patient does admit to feeling palpitations with some chest pressure over the last 3-4 days. The patient denied any specific decreased exercise tolerance, recent trauma, injury, or family members with similar symptoms. In the emergency room, the patient underwent general evaluation including chest imaging showing no acute process. The patient was noted with elevated BNP in the context of known chronic combined systolic and diastolic congestive heart failure with a level of 680. The patient received 40 mg IV Lasix x2 in addition to transdermal nitroglycerin, IV diltiazem and aspirin 324 mg. The patient was also noted with mild elevation of troponin I to 0.154. The patient was referred to the Hospitalist Service for further evaluation. PAST MEDICAL HISTORY: 1. Paroxysmal atrial fibrillation/atrial flutter, on chronic anticoagulation with Eliquis. 2. Chronic combined systolic and diastolic congestive heart failure with ejection fraction of 40% to 45%. 3. History of pneumonia, community-acquired. 4. Diabetes mellitus type 2 insulin requiring. 5. Dyslipidemia. 6. Hypertension. 7. Question of chronic obstructive pulmonary disease. 8. Peripheral neuropathy in the context of diabetes mellitus. PAST SURGICAL HISTORY: Reviewed and negative. CURRENT MEDICATIONS: 1. Gabapentin 300 mg p.o. t.i.d. 2. Tresiba 24 units subcutaneously daily. 3. Zestril 20 mg p.o. daily. 4. Metformin 500 mg p.o. b.i.d. 5. Eliquis 5 mg p.o. b.i.d. 6. Lasix 20 mg p.o. daily. 7. Simvastatin 20 mg p.o. at bedtime. ALLERGIES: NO KNOWN DRUG ALLERGIES. FAMILY HISTORY: No inheritable disease per patient report. SOCIAL HISTORY: . Resides in [place], [place]. Smokes up to 1-2 packs a day. No alcohol or illicit drug use. REVIEW OF SYSTEMS: CONSTITUTIONAL: Negative for weight loss or gain, ability to conduct usual activities. SKIN: Negative for rash, itching. EYES: Negative for double vision, pain. ENT/MOUTH: Negative for nose bleeding, neck stiffness, pain, tenderness. CARDIOVASCULAR: Negative for palpitations, dyspnea on exertion, orthopnea. RESPIRATORY: Negative for shortness of breath, wheezing, cough, hemoptysis, fever or night sweats. GASTROINTESTINAL: Negative for poor appetite, abdominal pain, heartburn, nausea , vomiting, constipation, or diarrhea. GENITOURINARY: Negative for urgency, frequency, dysuria, nocturia. MUSCULOSKELETAL: Negative for pain, swelling. NEUROLOGIC/PSYCHIATRIC: Negative for anxiety, depression. ALLERGY/IMMUNOLOGIC: Negative for skin rash, bleeding tendency. Otherwise negative except as stated per HPI. PHYSICAL EXAMINATION: VITAL SIGNS: On admission, blood pressure 152/82, pulse 95, respiratory rate 16 , temperature 97.7 degrees Fahrenheit, O2 saturation 98% on room air. GENERAL APPEARANCE: This is a 59-year-old male alert and oriented x3, pleasant, responsive, in no acute distress. HEENT: Pupils are equal, round, reactive to light and accommodation. Extraocular muscles are intact. No scleral icterus. No conjunctival injection. Nares patent, OP is clear. Teeth in fair repair. NECK: Supple. No cervical adenopathy. No thyromegaly. No carotid bruits. No JVD appreciated. Cervical spine with full active and passive range of motion. No meningeal signs noted. CHEST: Diminished breath sounds in the bases with occasional crackles. CARDIOVASCULAR EXAM: S1, S2 without noted murmur, rub, or gallop. ABDOMEN: Rounded, soft, nontender, and nondistended. Bowel sounds are positive in all 4 quadrants. There is no hepatosplenomegaly. No abdominal bruits, no rebound or guarding appreciated. EXTREMITIES: Warm and dry with fair turgor. Minimal edema to the ankle region bilaterally. Pulses palpable distally at the dorsalis pedis, posterior tibial, and popliteal arteries bilaterally. Capillary refill less than 2 seconds. NEUROLOGIC: Cranial nerves 2 through 12 are grossly intact. No focal or lateralizing signs appreciated. PERTINENT LABORATORY AND X-RAY FINDINGS: Basic metabolic profile within normal limits. Glucose 289. Troponin I 0.154. BNP 680, previously noted 1256 on 08/14/2018, lipase 11. CBC within normal limits. D-dimer less than 0.27. IMAGING: Portable chest x-ray dated 01/13/2020, showed no acute cardiopulmonary process. EKG dated 01/13/2020, showed sinus tachycardia with heart rates in the 110s. Normal R-wave progression noted in the precordial leads. Normal axis. No acute ST-T wave changes noted. ASSESSMENT/PLAN: 1. Aseko-eg-amyycua combined systolic and diastolic congestive heart failure exacerbation. The patient will be observed on the telemetry unit. We will continue Lasix 40 mg IV b.i.d. Repeat 2D transthoracic echocardiogram for accurate ejection fraction determination. Monitor serial In's and Out's and daily weight. 2. Non-ST elevation myocardial infarction type 2. Suspect demand ischemic state in the context of #1 and tachycardia. Continue serial troponin I monitoring. Continue aspirin 81 mg daily. Check 2D transthoracic echocardiogram. Consult Cardiology Service for any further recommendations and management. 3. Dyspnea. Suspect multifactorial including #1 and #2. Continue supportive management as outlined previously. 4. Diabetes mellitus type 2, insulin requiring. Insulin sliding scale for reflexive coverage. ADA diet. Confirm home insulin regimen. Serial Accu-Cheks before meals and at bedtime. 5. Hypertension. Labile. We will continue serial blood pressure monitoring. Resume home blood pressure regimen. IV hydralazine and labetalol as needed. 6. Prophylaxis. Sequential compression devices while in bed. Pepcid 20 mg p.o. b.i.d. CODE STATUS: Full. Surrogate medical decision maker is the patient's spouse. Job ID: [id number] [facility]
[2020-01-14 04:45] LABS: Anion Gap 10 mmol/L (10-20); BUN (Urea Nitrogen) 17 mg/dL (8.4-25.7); Calc. Creatinine Clearance 121 mL/min (70-130); Calcium 8.4 mg/dL (7.8-10.44); Carbon Dioxide 28 mmol/L (22-29); Cardiac Risk 5.2 (Less than 4.5); Chloride 104 mmol/L (98-107); Cholesterol 183 mg/dl (< 200 Desired); Estimated GFR-MDRD Greater than 90; Glucose 190 mg/dL (70-105); HDL Cholesterol 35 mg/dL (>60 Neg Risk); LDL Cholesterol, Calculated 131 mg/dL; Magnesium 1.8 mg/dL (1.6-2.6); Potassium 4.1 mmol/L (3.5-5.1); Sodium 138 mmol/L (136-145); Triglycerides 86 mg/dL (Less than 150)
[2020-01-14] MEDS: Furosemide 40 MG/4 ML VIAL SLOW IVP SCH ×2 (05:25→15:04)
[2020-01-14] MEDS: HumaLOG 300 UNITS/3 ML VIAL SC PRN ×2 (05:25→11:28)
[2020-01-14] MEDS ORDERED: INSULIN DEGLUDEC 24 UNIT SQ SCH (09:00)
[2020-01-14] MEDS: Famotidine 20 MG TAB PO SCH ×2 (09:20→20:18)
[2020-01-14] MEDS: Aspirin 81 mg Enteric Coated Tablet PO SCH (09:20)
[2020-01-14] MEDS: Apixaban 5 MG TAB PO SCH ×2 (09:20→20:18)
[2020-01-14] MEDS: Lisinopril 5 MG TAB PO SCH (09:20)
[2020-01-14] MEDS: Gabapentin 300 MG CAP PO SCH ×3 (09:20→20:18)
[2020-01-14] MEDS: Insulin Glargine 24 UNITS in Pre-Filled Syringe 1 EACH SC SCH (09:21)
[2020-01-14 11:44] LABS: SARS-CoV-2 MS2 Positive; SARS-CoV-2 N Gene Negative; SARS-CoV-2 S Gene Negative; SARS-CoV-2 by NAA Not Detected (NotDetected); SARS-CoV-2 orf1ab Negative
[2020-01-14 14:00] LABS: Troponin I 0.486 ng/mL (< 0.028)
--- NOTE | 2020-01-14 14:29 | PDOC.HOSPP ---
- Subjective Encounter Date: 01/14/20 Encounter Time: 14:25 Subjective: f/u for NSTEMI/CHF currently medically managed with ASA/Lipitor/Eliquis/ Lisinopril/Nitrates. - Objective Vital Signs & Weight: Vital Signs (12 hours) Temp Pulse Resp BP Pulse Ox 01/14/20 12:22 97.8 F 90 18 130/75 96 01/14/20 09:30 96 01/14/20 09:20 91 01/14/20 09:16 98.5 F 85 18 119/68 96 01/14/20 05:15 98.6 F 91 14 128/80 97 Weight Weight 196 lb 8 oz I&O: 01/13/20 01/14/20 01/15/20 06:59 06:59 06:59 Intake Total 720 Output Total 300 Balance 420 Result Diagrams: 01/13/20 09:15 01/14/20 03:56 Additional Labs: Accuchecks 01/14/20 01/14/20 01/13/20 10:43 05:30 20:47 POC Glucose 192 H 179 H 234 H 01/13/20 15:55 POC Glucose 205 H Laboratory Tests 08/12/18 08/14/18 01/13/20 09:09 11:05 09:15 Troponin I B-Natriuretic Peptide 1255.2 H 1256.0 H 680.4 H Triglycerides Cholesterol LDL Cholesterol, Calc HDL Cholesterol 01/13/20 01/13/20 01/13/20 09:15 14:27 17:54 Troponin I 0.154 H 1.161 H* 1.138 H* B-Natriuretic Peptide Triglycerides Cholesterol LDL Cholesterol, Calc HDL Cholesterol 01/14/20 01/14/20 03:56 13:19 Troponin I 0.486 H* B-Natriuretic Peptide Triglycerides 86 Cholesterol 183 LDL Cholesterol, Calc 131 HDL Cholesterol 35 EKG Reviewed by me: Yes (Tele - SR) Hospitalist ROS - Medication Medications: Active Medications Generic Name Dose Route Start Last Admin Trade Name Freq PRN Reason Stop Dose Admin Apixaban 5 mg 01/13/20 21:00 01/14/20 09:20 Eliquis PO 5 mg BID ARI Administration Aspirin 81 mg 01/14/20 09:00 01/14/20 09:20 Ecotrin PO 81 mg DAILY ARI Administration Famotidine 20 mg 01/13/20 21:00 01/14/20 09:20 Pepcid PO 20 mg BID AIR Administration Furosemide 40 mg 01/14/20 06:00 01/14/20 05:25 Lasix SLOW IVP 40 mg 0600,1400 ARI Administration Gabapentin 300 mg 01/13/20 15:00 01/14/20 09:20 Neurontin PO 300 mg TID ARI Administration Insulin Glargine 24 units/ 0.24 mls @ 0 mls/hr 01/14/20 09:00 01/14/20 09:21 Miscellaneous Medication SC 0.24 mls DAILY ARI Administration As Directed Insulin Human Lispro 0 units 01/13/20 14:12 01/14/20 11:28 Humalog SC 2 unit .MODERATE SLIDING SC PRN Administration Moderate Correctional Scale Lisinopril 2.5 mg 01/14/20 09:00 01/14/20 09:20 Zestril PO 2.5 mg DAILY ARI Administration Metformin HCl 500 mg 01/13/20 17:00 01/13/20 15:56 Glucophage PO 500 mg BID-WM ARI Administration - Exam General Appearance: NAD, awake alert Eye: PERRL, anicteric sclera ENT: normocephalic atraumatic, no oropharyngeal lesions Neck: supple, symmetric, no JVD, no thyromegaly, no lymphadenopathy Heart: RRR, no murmur, no gallops, no rubs, normal peripheral pulses Heart - other findings: S1, S2 Respiratory: CTAB, no wheezes, no rales, no ronchi, normal chest expansion Gastrointestinal: soft, non-tender, non-distended, normal bowel sounds, no palpable masses Extremities: no cyanosis, no clubbing, no edema Skin: normal turgor, no lesions Neurological: cranial nerve grossly intact, no new deficit Musculoskeletal: normal tone, normal strength, no muscle wasting Psychiatric: normal affect, A&O x 3 Hosp A/P (1) Type [address] elevation Code(s): I21.A1 - MYOCARDIAL INFARCTION TYPE 2 Status: Acute Plan: Continue med mgmt currently, ASA/Lipitor/Nitrates/Eliquis, ? plan for heart catheterization (2) Acute diastolic ACC/AHA stage C congestive heart failure Code(s): I50.31 - ACUTE DIASTOLIC (CONGESTIVE) HEART FAILURE Status: Acute (3) Diabetes type 2, controlled Code(s): E11.9 - TYPE 2 DIABETES MELLITUS WITHOUT COMPLICATIONS Status: Chronic Qualifiers: Diabetes mellitus long term care phlebotomist insulin use: with long term care phlebotomist use Plan: ISS, ADA, Glargine/Metformin (4) Dyslipidemia Code(s): E78.5 - HYPERLIPIDEMIA, UNSPECIFIED Status: Chronic Plan: Continue Lipitor (5) Hypertension Code(s): I10 - ESSENTIAL (PRIMARY) HYPERTENSION Status: Chronic Qualifiers: Hypertension type: essential hypertension Qualified Code(s): I10 - Essential (primary) hypertension Plan: Resume home BP regimen, serial monitoring - Plan out of bed/ambulate, DVT proph w/SCDs Stable currently Continue ASA/Lipitor Continue Eliquis ? Heart cath pending Change Lasix 40mg po daily 2D echo pending
--- NOTE | 2020-01-14 14:57 | PDOC.CPN ---
- Subjective Date: 01/14/20 Time: 15:08 Interval history: The pt seen and examined. No overnight events. No cardiac complaints. According to last hospital admission, the pt was recommended to have EVR for 3 wks fo hx of parox aflutter; however, he never f/u with Dr Amaya's office - Objective Allergies/Adverse Reactions: Allergies Allergy/AdvReac Type Severity Reaction Status Date / Time No Known Drug Allergies Allergy Verified 08/13/18 08:03 Visit Medications: Current Medications Acetaminophen (Tylenol) 1,000 mg PO Q6H PRN PRN Reason: Mild Pain (1-3) Apixaban (Eliquis) 5 mg PO BID [facility] Last Admin: 01/14/20 09:20 Dose: 5 mg Aspirin (Ecotrin) 81 mg PO DAILY [facility] Last Admin: 01/14/20 09:20 Dose: 81 mg Atorvastatin Calcium (Lipitor) 40 mg PO [facility] Dextrose/Water (Dextrose 50%) 25 gm SLOW IVP PRN PRN PRN Reason: Hypoglycemia Famotidine (Pepcid) 20 mg PO BID [facility] Last Admin: 01/14/20 09:20 Dose: 20 mg Furosemide (Lasix) 40 mg PO DAILY-AC [facility] Gabapentin (Neurontin) 300 mg PO TID [facility] Last Admin: 01/14/20 09:20 Dose: 300 mg Glucagon (Glucagon) 1 mg IM PRN PRN PRN Reason: Hypoglycemia Hydralazine HCl (Apresoline) 10 mg SLOW IVP Q4H PRN PRN Reason: SBP > 180 and HR < 70 Dextrose/Water (D5w) 1,000 mls @ 0 mls/hr IV .Q0M PRN PRN Reason: Hypoglycemia Insulin Glargine 24 units/ (Miscellaneous Medication) 0.24 mls @ 0 mls/hr SC DAILY [facility] Last Admin: 01/14/20 09:21 Dose: 0.24 mls Insulin Human Lispro (Humalog) 0 units SC .MODERATE SLIDING SC PRN PRN Reason: Moderate Correctional Scale Last Admin: 01/14/20 11:28 Dose: 2 unit Insulin Human Lispro (Humalog) 0 units SC .BEDTIME SLIDING SC PRN PRN Reason: Bedtime Correctional Scale Labetalol HCl (Normodyne) 20 mg SLOW IVP Q4H PRN PRN Reason: SBP > 180 and HR >/= 70 Lisinopril (Zestril) 2.5 mg PO DAILY [facility] Last Admin: 01/14/20 09:20 Dose: 2.5 mg Metformin HCl (Glucophage) 500 mg PO BID[facility] Last Admin: 01/13/20 15:56 Dose: 500 mg Nitroglycerin (Nitrostat) 0.4 mg PO Q5MIN PRN PRN Reason: Chest Pain Ondansetron HCl (Zofran Odt) 4 mg PO Q6H PRN PRN Reason: Nausea/Vomiting Ondansetron HCl (Zofran) 4 mg IVP Q6H PRN PRN Reason: Nausea/Vomiting Vital Signs & Weight: Vital Signs Temp Pulse Resp BP Pulse Ox 01/14/20 12:22 97.8 F 90 18 130/75 96 01/14/20 09:30 96 01/14/20 09:20 91 01/14/20 09:16 98.5 F 85 18 119/68 96 01/14/20 05:15 98.6 F 91 14 128/80 97 Weight 196 lb 8 oz - Physical Exam General: alert & oriented x3 HEENT: mucus membranes moist Neck: supple neck Cardiac: regular rate and rhythm, S1/S2 Lungs: decreased breath sounds Neuro: cranial nerve 2-12 intact Extremities: no edema - Labs Result Diagrams: 01/13/20 09:15 01/14/20 03:56 Troponin/CKMB CK-MB (CK-2) 2.4 ng/mL (0-6.6) 01/13/20 09:15 Troponin I 0.486 ng/mL (< 0.028) H* 01/14/20 13:19 - Telemetry Sinus rhythms and dysrhythmias: sinus rhythm - Assessment/Plan Assessment/Plan: 1. NSTEMI - Trop went down to 0.4 today; will order stress test 2. Acute on chronic combined HF - Stable with RA; on Lasix 40mg po qd and Lisinopril 2.5mg qd; will start Coreg 3.125mg 1/2 tab BID for CHF and Aflutter management 3. HTN - stable 4. Hx of Aflutter in 09/2018 - remains in SR; on Eliquis 5mg BID; will start Coreg 3.125mg 1/2 tab BID for CHF and Aflutter management 5. HLD - on Lipitor 6. DM type 2 7. Current smoker - strongly recommend to start Smoking cessation MAR reviewed * Echo result is pending at this moment * Dr Lai' pt
[2020-01-14] MEDS: Carvedilol 3.125 MG TAB PO SCH (20:18)
[2020-01-14] MEDS: Atorvastatin Calcium 40 MG TAB PO SCH (20:19)
[2020-01-14] MEDS ORDERED: Carvedilol 3.125 MG TAB PO SCH (21:00)
[2020-01-15] MEDS: Apixaban 5 MG TAB PO SCH (07:29)
[2020-01-15] MEDS: Carvedilol 3.125 MG TAB PO SCH ×2 (07:29→20:07)
[2020-01-15] MEDS: Famotidine 20 MG TAB PO SCH ×2 (07:29→20:07)
[2020-01-15] MEDS: Aspirin 81 mg Enteric Coated Tablet PO SCH (07:29)
[2020-01-15] MEDS: Gabapentin 300 MG CAP PO SCH ×3 (07:29→20:07)
[2020-01-15] MEDS: Furosemide 40 MG TAB PO SCH (07:29)
[2020-01-15] MEDS: Insulin Glargine 24 UNITS in Pre-Filled Syringe 1 EACH SC SCH ×2 (07:30→17:07)
[2020-01-15] MEDS: Lisinopril 5 MG TAB PO SCH (07:30)
[2020-01-15] MEDS ORDERED: Regadenoson 0.4 MG/5 ML SYRINGE ONE (11:15)
--- NOTE | 2020-01-15 11:56 | NM ---
CARDIAC SPECT: HISTORY: A 59-year-old male with chest pain. Non-ST elevation [place], CHF, COPD, atrial fibrillation, hypertensio n, diabetes, dyslipidemia, smoker, peripheral vascular disease. TECHNIQUE: A myocardial perfusion scan was performed using the single-isotope 1-day protocol with Technetium 99m sestamibi. 11 mCi were injected intravenously for rest exam followed by 27 mCi for the stress study . Pharmacologic stress with LexiScan was monitored and interpreted by Dr. Watters. FINDINGS: There is a large fixed defect in the inferolateral wall. No reversible defects are seen. GATED SPECT LVEF: 30%. WALL MOTION EXAM: Global hypokinesis. IMPRESSION: No evidence of reversible ischemia. POS: OFF
[2020-01-15 13:18] VITALS: BMI 29.8
--- NOTE | 2020-01-15 14:39 | PDOC.HOSPP ---
- Subjective Encounter Date: 01/15/20 Encounter Time: 14:30 Subjective: f/u for NSTEMI/CHF with [employer]ICER showing fixed defect in the inferolateral wall and EF 30%. No current CP or SOB. - Objective Vital Signs & Weight: Vital Signs (12 hours) Temp Pulse Resp BP BP Pulse Ox 01/15/20 11:32 97.8 F 90 18 139/86 99 01/15/20 07:35 97 01/15/20 07:30 96 01/15/20 07:25 98.4 F 87 16 125/101 H 97 01/15/20 04:00 98.0 F 96 21 H 128/79 96 Weight Admit Weight 188 lb 1.6 oz Weight 196 lb 4.8 oz I&O: 01/14/20 01/15/20 01/16/20 06:59 06:59 06:59 Intake Total 720 2020 Output Total 300 2700 Balance 420 -680 Result Diagrams: 01/13/20 09:15 01/14/20 03:56 Additional Labs: Accuchecks 01/15/20 01/14/20 05:49 17:36 POC Glucose 218 H 213 H Laboratory Tests 08/12/18 08/14/18 01/13/20 09:09 11:05 09:15 Troponin I B-Natriuretic Peptide 1255.2 H 1256.0 H 680.4 H Triglycerides Cholesterol LDL Cholesterol, Calc HDL Cholesterol 01/13/20 01/13/20 01/13/20 09:15 14:27 17:54 Troponin I 0.154 H 1.161 H* 1.138 H* B-Natriuretic Peptide Triglycerides Cholesterol LDL Cholesterol, Calc HDL Cholesterol 01/14/20 01/14/20 03:56 13:19 Troponin I 0.486 H* B-Natriuretic Peptide Triglycerides 86 Cholesterol 183 LDL Cholesterol, Calc 131 HDL Cholesterol 35 Radiology Reviewed by me: Yes ([employer]ER - no reversible ischemia, fixed defect inferolateral wall, EF 30%) EKG Reviewed by me: Yes (Tele - SR) Hospitalist ROS - Medication Medications: Active Medications Generic Name Dose Route Start Last Admin Trade Name Freq PRN Reason Stop Dose Admin Apixaban 5 mg 01/13/20 21:00 01/15/20 07:29 Eliquis PO 5 mg BID ARI Administration Aspirin 81 mg 01/14/20 09:00 09/07/20 07:29 Ecotrin PO 81 mg DAILY ARI Administration Atorvastatin Calcium 40 mg 01/14/20 21:00 01/14/20 20:19 Lipitor PO 40 mg HS ARI Administration Carvedilol 1.5625 mg 01/14/20 21:00 01/15/20 07:29 Coreg PO Not Given BID ARI Famotidine 20 mg 01/13/20 21:00 01/15/20 07:29 Pepcid PO 20 mg BID ARI Administration Furosemide 40 mg 01/15/20 07:30 01/15/20 07:29 Lasix PO 40 mg DAILY-AC ARI Administration Gabapentin 300 mg 01/13/20 15:00 01/15/20 07:29 Neurontin PO 300 mg TID ARI Administration Insulin Glargine 24 units/ 0.24 mls @ 0 mls/hr 01/14/20 09:00 01/15/20 07:30 Miscellaneous Medication SC Not Given DAILY ARI As Directed Insulin Human Lispro 0 units 01/13/20 14:12 01/14/20 11:28 Humalog SC 2 unit .MODERATE SLIDING SC PRN Administration Moderate Correctional Scale Lisinopril 2.5 mg 01/14/20 09:00 01/15/20 07:30 Zestril PO Not Given DAILY ARI Metformin HCl 500 mg 01/13/20 17:00 01/13/20 15:56 Glucophage PO 500 mg BID-WM ARI Administration - Exam General Appearance: NAD, awake alert Eye: PERRL, anicteric sclera ENT: normocephalic atraumatic, no oropharyngeal lesions Neck: supple, symmetric, no JVD, no thyromegaly Heart: RRR, no murmur, no gallops, no rubs, normal peripheral pulses Heart - other findings: S1, S2 Respiratory: CTAB, no wheezes, no rales, no ronchi, normal chest expansion Gastrointestinal: soft, non-tender, non-distended, normal bowel sounds, no palpable masses Extremities: no cyanosis, no clubbing, no edema Skin: normal turgor, no lesions Neurological: cranial nerve grossly intact, no new deficit Musculoskeletal: normal tone, normal strength Psychiatric: normal affect, A&O x 3 Hosp A/P (1) Type [address] elevation Code(s): I21.A1 - MYOCARDIAL INFARCTION TYPE 2 Status: Acute Plan: [employer] showing fixed defect in inferolateral wall, EF 30%, prior EF 45-50% in 2018, likely will need heart cath to define anatomy and confirm depressed EF (2) Acute diastolic ACC/AHA stage C congestive heart failure Code(s): I50.31 - ACUTE DIASTOLIC (CONGESTIVE) HEART FAILURE Status: Acute Plan: Continue Lasix, serial I/O's, Daily weight (3) Diabetes type 2, controlled Code(s): E11.9 - TYPE 2 DIABETES MELLITUS WITHOUT COMPLICATIONS Status: Chronic Qualifiers: Diabetes mellitus tallow pumper insulin use: with tallow pumper use Plan: Continue ISS, Glargine, Metformin, ADA (4) Dyslipidemia Code(s): E78.5 - HYPERLIPIDEMIA, UNSPECIFIED Status: Chronic (5) Hypertension Code(s): I10 - ESSENTIAL (PRIMARY) HYPERTENSION Status: Chronic Qualifiers: Hypertension type: essential hypertension Qualified Code(s): I10 - Essential (primary) hypertension - Plan out of bed/ambulate, DVT proph w/SCDs Stable currently Continue ASA/Lipitor/Coreg Continue Eliquis ? Heart cath pending NPO after MN Continue Lasix 40mg po daily 2D echo pending
--- NOTE | 2020-01-15 17:40 | PDOC.CPN ---
- Subjective Date: 01/15/20 Time: 17:38 Interval history: No new issues. No angina. - Review of Systems General: denies: fever/chills, weight/appetite/sleep changes, night sweats, fatigue Respiratory: denies: cough, congestion, shortness of breath, exercise intolerance Cardiovascular: denies: chest pain, palpitation, edema, paroxysmal nocturnal dyspnea, orthopnea Gastrointestinal: denies: nausea, vomiting, diarrhea, constipation, abd pain, GI bleeding Musculoskeletal: denies: pain, tenderness, stiffness, swelling, arthritis/ arthralgias Neurological: denies: numbness, syncope, seizure, weakness - Objective Allergies/Adverse Reactions: Allergies Allergy/AdvReac Type Severity Reaction Status Date / Time No Known Drug Allergies Allergy Verified 08/13/18 08:03 Visit Medications: Current Medications Acetaminophen (Tylenol) 1,000 mg PO Q6H PRN PRN Reason: Mild Pain (1-3) Apixaban (Eliquis) 5 mg PO BID [facility] Last Admin: 01/15/20 07:29 Dose: 5 mg Aspirin (Ecotrin) 81 mg PO DAILY [facility] Last Admin: 01/15/20 07:29 Dose: 81 mg Atorvastatin Calcium (Lipitor) 40 mg PO HS [facility] Last Admin: 01/14/20 20:19 Dose: 40 mg Carvedilol (Coreg) 1.5625 mg PO BID [facility] Last Admin: 01/15/20 07:29 Dose: Not Given Dextrose/Water (Dextrose 50%) 25 gm SLOW IVP PRN PRN PRN Reason: Hypoglycemia Famotidine (Pepcid) 20 mg PO BID [facility] Last Admin: 01/15/20 07:29 Dose: 20 mg Furosemide (Lasix) 40 mg PO DAILY-AC [facility] Last Admin: 01/15/20 07:29 Dose: 40 mg Gabapentin (Neurontin) 300 mg PO TID [facility] Last Admin: 01/15/20 15:55 Dose: 300 mg Glucagon (Glucagon) 1 mg IM PRN PRN PRN Reason: Hypoglycemia Hydralazine HCl (Apresoline) 10 mg SLOW IVP Q4H PRN PRN Reason: SBP > 180 and HR < 70 Dextrose/Water (D5w) 1,000 mls @ 0 mls/hr IV .Q0M PRN PRN Reason: Hypoglycemia Insulin Glargine 24 units/ (Miscellaneous Medication) 0.24 mls @ 0 mls/hr SC DAILY [facility] Last Admin: 01/15/20 17:07 Dose: 0.24 mls Insulin Human Lispro (Humalog) 0 units SC .MODERATE SLIDING SC PRN PRN Reason: Moderate Correctional Scale Last Admin: 01/14/20 11:28 Dose: 2 unit Insulin Human Lispro (Humalog) 0 units SC .BEDTIME SLIDING SC PRN PRN Reason: Bedtime Correctional Scale Labetalol HCl (Normodyne) 20 mg SLOW IVP Q4H PRN PRN Reason: SBP > 180 and HR >/= 70 Lisinopril (Zestril) 2.5 mg PO DAILY [facility] Last Admin: 01/15/20 07:30 Dose: Not Given Metformin HCl (Glucophage) 500 mg PO BID-[facility] Last Admin: 01/13/20 15:56 Dose: 500 mg Nitroglycerin (Nitrostat) 0.4 mg PO Q5MIN PRN PRN Reason: Chest Pain Ondansetron HCl (Zofran Odt) 4 mg PO Q6H PRN PRN Reason: Nausea/Vomiting Ondansetron HCl (Zofran) 4 mg IVP Q6H PRN PRN Reason: Nausea/Vomiting Vital Signs & Weight: Vital Signs Temp Pulse Resp BP BP Pulse Ox 01/15/20 15:32 98.0 F 90 18 157/75 H 99 01/15/20 11:32 97.8 F 90 18 139/86 99 01/15/20 07:35 97 01/15/20 07:30 96 01/15/20 07:25 98.4 F 87 16 125/101 H 97 Admit Weight 188 lb 1.6 oz Weight 196 lb 4.8 oz - Physical Exam General: alert & oriented x3 HEENT: mucus membranes moist Neck: supple neck Cardiac: regular rate and rhythm Lungs: clear to auscultation Neuro: grossly intact Abdomen: active bowel sounds Extremities: no edema Skin: clear Musculoskeletal: no pain - Labs Result Diagrams: 01/13/20 09:15 01/14/20 03:56 Troponin/CKMB CK-MB (CK-2) 2.4 ng/mL (0-6.6) 01/13/20 09:15 Troponin I 0.486 ng/mL (< 0.028) H* 01/14/20 13:19 - Telemetry Sinus rhythms and dysrhythmias: sinus rhythm - Assessment/Plan Assessment/Plan: 1. NSTEMI 2. Acute on chronic combined CHF 3. HTN 4. Hx of Aflutter in 09/2018 5. New onset dilated CM EF at 30% on stress test and 40-45% on echo. 6. DM type 2 7. Current smoker PLAN: - Abnormal stress test with worsening EF at 30% and inferolateral wall FIXED defect. - Would recommend [facility] for further risk stratification. - He is on Eliquis and would have to wait until 24hrs of being off Eliquis before able to do this. Will hold dose tonight. - He will need lifevest before discharge. - We spoke about risks and benefits of LHC, risks included but not limited to stroke, [place], , bleeding and need for blood transfusion, limb loss, organ loss. he understands and verbalizes understanding of this and agrees to proceed. - Dr. Lai will decide tomorrow timing of procedure given Eliquis therapy.
[2020-01-15] MEDS: HumaLOG 300 UNITS/3 ML VIAL SC PRN (18:37)
[2020-01-15] MEDS: Atorvastatin Calcium 40 MG TAB PO SCH (20:07)
[2020-01-16] MEDS: Aspirin 81 mg Enteric Coated Tablet PO SCH (09:01)
[2020-01-16] MEDS: Famotidine 20 MG TAB PO SCH ×2 (09:01→20:39)
[2020-01-16] MEDS: Gabapentin 300 MG CAP PO SCH ×3 (09:02→20:39)
[2020-01-16] MEDS: Lisinopril 5 MG TAB PO SCH (09:02)
[2020-01-16] MEDS: Carvedilol 3.125 MG TAB PO SCH ×2 (09:02→20:39)
[2020-01-16] MEDS: Furosemide 40 MG TAB PO SCH (09:08)
[2020-01-16] MEDS: Insulin Glargine 24 UNITS in Pre-Filled Syringe 1 EACH SC SCH (09:22)
[2020-01-16] MEDS ORDERED: Sodium Chloride 0.9% 1,000 ML IV SCH (13:30)
[2020-01-16] MEDS ORDERED: Communication Order-Pharmacy FS SCH (13:30)
--- NOTE | 2020-01-16 14:08 | PRG ---
DATE OF SERVICE: 01/16/2020 SUBJECTIVE: Mr. Kathleen is doing well. No current complaints. He states he is feeling much better than when he was admitted on 01/13/2020. He was recently admitted and was found to have a cardiomyopathy, new onset. A stress test was done that showed a scar to the inferolateral wall with LVEF 30%. OBJECTIVE: VITAL SIGNS: Blood pressure 137/85, pulse 89, temperature 97.9. LUNGS: Clear to auscultation. HEART: Regular rate and rhythm. ABDOMEN: Soft, nontender, nondistended. EXTREMITIES: No edema. PERTINENT LABORATORY DATA: Hemoglobin 14.7, hematocrit 45.9. Peak troponin 0.489 on 01/14/2020. IMPRESSION: 1. New onset cardiomyopathy. 2. Tobacco abuse. 3. Abnormal stress study. RECOMMENDATIONS: We will proceed with coronary angiography with possible PCI. I discussed in full detail with Mr. Kathleen. Risks include, but not limited to the following: I discussed the procedure in full detail with the patient. The risks of the procedure were also discussed. The risks of the procedure include but are not limited to the following: , stroke, [place], need for emergency surgery, loss of limb, bleeding, and infection, as well as a reaction to the dye causing kidney failure and needing long-term dialysis. I also discussed the risks of PCI to include all of the above including coronary dissection and perforation in addition to acute stent thrombosis and restenosis. All questions about the procedure were answered. Given the above, the patient agreed to proceed with coronary angiography and possible PCI. All questions were answered. Given the above, the patient agreed to proceed with above procedure. He is on Eliquis for history of atrial fibrillation. This was stopped yesterday. We will proceed with angio in a.m. Job ID: [id number]
--- NOTE | 2020-01-16 14:14 | EKG ---
Test Reason : SOB Blood Pressure : / mmHG Vent. Rate : 111 BPM Atrial Rate : 111 BPM P-R Int : 134 ms QRS Dur : 098 ms QT Int : 346 ms P-R-T Axes : 069 052 048 degrees QTc Int : 470 ms Sinus tachycardia Nonspecific ST abnormality Abnormal ECG Confirmed by KASEY ESPAÑA, BOLIVAR ([id number]), acquisition editor MERLE WATERMAN ([id number]) on 01/16/2020 2:13:51 PM Referred By: Confirmed By:BOLIVAR PARKS MD
--- NOTE | 2020-01-16 14:26 | PDOC.HOSPP ---
- Subjective Encounter Date: 01/16/20 Encounter Time: 14:25 Subjective: f/u for CM and abnormal stress test with plans for LHC and potential PCI. Receiving ASA/Lipitor/Coreg/Lasix with Eliquis on hold in preparation for LHC. - Objective Vital Signs & Weight: Vital Signs (12 hours) Temp Pulse Resp BP BP Pulse Ox 01/16/20 11:06 97.9 F 89 14 137/85 97 01/16/20 07:50 98 01/16/20 07:19 97.7 F 83 16 132/81 98 01/16/20 03:28 98.3 F 85 16 129/75 98 Weight Admit Weight 188 lb 1.6 oz Weight 194 lb 1.6 oz I&O: 01/15/20 01/16/20 01/17/20 06:59 06:59 06:59 Intake Total 20190 Output Total 2700 1550 Balance -680 570 Result Diagrams: 01/13/20 09:15 01/14/20 03:56 Additional Labs: Accuchecks 01/16/20 01/16/20 01/15/20 11:46 05:34 20:39 POC Glucose 94 130 H 195 H 01/15/20 01/15/20 18:40 16:59 POC Glucose 356 H 317 H Laboratory Tests 08/12/18 08/14/18 01/13/20 09:09 11:05 09:15 Troponin I B-Natriuretic Peptide 1255.2 H 1256.0 H 680.4 H Triglycerides Cholesterol LDL Cholesterol, Calc HDL Cholesterol 01/13/20 01/13/20 01/13/20 09:15 14:27 17:54 Troponin I 0.154 H 1.161 H* 1.138 H* B-Natriuretic Peptide Triglycerides Cholesterol LDL Cholesterol, Calc HDL Cholesterol 01/14/20 01/14/20 03:56 13:19 Troponin I 0.486 H* B-Natriuretic Peptide Triglycerides 86 Cholesterol 183 LDL Cholesterol, Calc 131 HDL Cholesterol 35 Radiology Reviewed by me: Yes (Echo - EF 40-45%, diast dysfxn, mod MR) EKG Reviewed by me: Yes (Tele - SR) Hospitalist ROS - Medication Medications: Active Medications Generic Name Dose Route Start Last Admin Trade Name Freq PRN Reason Stop Dose Admin Aspirin 81 mg 01/14/20 09:00 01/16/20 09:01 Ecotrin PO 81 mg DAILY ARI Administration Atorvastatin Calcium 40 mg 01/14/20 21:00 01/15/20 20:07 Lipitor PO 40 mg HS ARI Administration Carvedilol 3.125 mg 01/15/20 21:00 01/16/20 09:02 Coreg PO 3.125 mg BID ARI Administration Famotidine 20 mg 01/13/20 21:00 01/16/20 09:01 Pepcid PO 20 mg BID ARI Administration Furosemide 40 mg 01/15/20 07:30 01/16/20 09:08 Lasix PO 40 mg DAILY-AC ARI Administration Gabapentin 300 mg 01/13/20 15:00 01/16/20 09:02 Neurontin PO 300 mg TID ARI Administration Insulin Glargine 24 units/ 0.24 mls @ 0 mls/hr 01/14/20 09:00 01/16/20 09:22 Miscellaneous Medication SC 01/17/20 05:59 Not Given DAILY ARI As Directed Insulin Human Lispro 0 units 01/13/20 14:12 01/15/20 18:37 Humalog SC 01/17/20 05:59 10 unit .MODERATE SLIDING SC PRN Administration Moderate Correctional Scale Lisinopril 2.5 mg 01/14/20 09:00 01/16/20 09:02 Zestril PO 2.5 mg DAILY ARI Administration Metformin HCl 500 mg 01/13/20 17:00 01/13/20 15:56 Glucophage PO 01/17/20 05:59 500 mg BID-WM ARI Administration - Exam General Appearance: NAD, awake alert Eye: PERRL, anicteric sclera ENT: normocephalic atraumatic, no oropharyngeal lesions Neck: supple, symmetric, no JVD, no thyromegaly, no lymphadenopathy Heart: RRR, no gallops, no rubs, normal peripheral pulses Heart - other findings: S1, S2 Respiratory: CTAB, no wheezes, no rales, no ronchi, normal chest expansion, no tachypnea Gastrointestinal: soft, non-tender, non-distended, normal bowel sounds, no palpable masses Extremities: no cyanosis, no clubbing, no edema Skin: normal turgor, no lesions Neurological: cranial nerve grossly intact, no new deficit Musculoskeletal: normal tone, normal strength, no muscle wasting Psychiatric: normal affect, A&O x 3 Hosp A/P (1) Type [address] elevation Code(s): I21.A1 - MYOCARDIAL INFARCTION TYPE 2 Status: Acute Plan: Continue medical mgmt currently, plan for LHC with possible PCI in am (2) Acute diastolic ACC/AHA stage C congestive heart failure Code(s): I50.31 - ACUTE DIASTOLIC (CONGESTIVE) HEART FAILURE Status: Acute Plan: EF 30%, ischemic work up continuing, Lasix daily (3) Diabetes type 2, controlled Code(s): E11.9 - TYPE 2 DIABETES MELLITUS WITHOUT COMPLICATIONS Status: Chronic Qualifiers: Diabetes mellitus 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
[2020-01-16] MEDS: metFORMIN 500 MG TAB PO SCH (17:03)
[2020-01-16] MEDS: Atorvastatin Calcium 40 MG TAB PO SCH (20:39)
[2020-01-17] MEDS: Famotidine 20 MG TAB PO SCH (05:05)
[2020-01-17] MEDS: Lisinopril 5 MG TAB PO SCH (05:05)
[2020-01-17] MEDS: Gabapentin 300 MG CAP PO SCH ×2 (05:06→14:06)
[2020-01-17] MEDS: Carvedilol 3.125 MG TAB PO SCH (05:06)
[2020-01-17] MEDS: Aspirin 81 mg Enteric Coated Tablet PO SCH (05:06)
[2020-01-17] MEDS ORDERED: Midazolam HCl 2 mg/2 ml Vial ONE (07:53)
[2020-01-17] MEDS ORDERED: Fentanyl 100 MCG/2 ML VIAL ONE (07:53)
[2020-01-17] MEDS ORDERED: Sodium Chloride 0.9% 200 ML IV PRN (08:24)
[2020-01-17] MEDS ORDERED: Nitroglycerin 0.4 MG TAB (25 Tab Bottle) SL PRN (08:24)
[2020-01-17] MEDS ORDERED: Acetaminophen/Codeine 30-300mg Tablet PO PRN ×2 (08:24)
[2020-01-17] MEDS ORDERED: Sodium Chloride 0.9% 1,000 ML IV SCH (08:30)
[2020-01-17] MEDS: Furosemide 40 MG TAB PO SCH (09:00)
[2020-01-17] MEDS ORDERED: Iopamidol 370 76% 100 ML VIAL ONE (11:11)
[2020-01-17 13:12] LABS: Hemoglobin A1c 11.6 % (4.0-6.0)
--- NOTE | 2020-01-17 15:49 | PDOC.HOSPP ---
- Subjective Encounter Date: 01/17/20 Encounter Time: 15:40 Subjective: f/u for NSTEMI and LHC - Objective Vital Signs & Weight: Vital Signs (12 hours) Temp Pulse Resp BP BP BP Pulse Ox 01/17/20 12:00 97.4 F L 78 18 118/72 98 01/17/20 10:03 85 148/70 H 01/17/20 09:33 84 143/82 H 01/17/20 09:18 86 146/84 H 01/17/20 09:03 84 144/80 H 01/17/20 08:48 154/84 H 01/17/20 08:33 97.4 F L 92 16 160/70 H 93 L 01/17/20 08:24 97.4 F L 92 16 160/70 H 93 L 01/17/20 08:00 93 L 01/17/20 05:05 79 01/17/20 04:55 98.5 F 79 18 134/73 98 Weight Admit Weight 188 lb 1.6 oz Weight 194 lb 12.8 oz I&O: 01/16/20 01/17/20 01/18/20 06:59 06:59 06:59 Intake Total 2120 1200 240 Output Total 1550 1200 Balance 570 0 240 Result Diagrams: 01/13/20 09:15 01/14/20 03:56 Additional Labs: Accuchecks 01/17/20 01/17/20 01/16/20 11:12 05:14 20:28 POC Glucose 185 H 181 H 277 H 01/16/20 16:19 POC Glucose 158 H Laboratory Tests 08/12/18 08/14/18 01/13/20 09:09 11:05 09:15 Troponin I B-Natriuretic Peptide 1255.2 H 1256.0 H 680.4 H Triglycerides Cholesterol LDL Cholesterol, Calc HDL Cholesterol 01/13/20 01/13/20 01/13/20 09:15 14:27 17:54 Troponin I 0.154 H 1.161 H* 1.138 H* B-Natriuretic Peptide Triglycerides Cholesterol LDL Cholesterol, Calc HDL Cholesterol 01/14/20 01/14/20 03:56 13:19 Troponin I 0.486 H* B-Natriuretic Peptide Triglycerides 86 Cholesterol 183 LDL Cholesterol, Calc 131 HDL Cholesterol 35 Laboratory Tests 01/17/20 12:29 Hemoglobin A1c 11.6 H EKG Reviewed by me: Yes (Tele - SR) Hospitalist ROS - Medication Medications: Active Medications Generic Name Dose Route Start Last Admin Trade Name Joshua PRN Reason Stop Dose Admin Aspirin 81 mg 01/14/20 09:00 01/17/20 05:06 Ecotrin PO 81 mg DAILY ARI Administration Atorvastatin Calcium 40 mg 01/14/20 21:00 01/16/20 20:39 Lipitor PO 40 mg HS ARI Administration Carvedilol 3.125 mg 01/15/20 21:00 01/17/20 05:06 Coreg PO 3.125 mg BID ARI Administration Famotidine 20 mg 01/13/20 21:00 01/17/20 05:05 Pepcid PO 20 mg BID ARI Administration Furosemide 40 mg 01/15/20 07:30 01/17/20 09:00 Lasix PO 40 mg DAILY-AC ARI Administration Gabapentin 300 mg 01/13/20 15:00 01/17/20 14:06 Neurontin PO 300 mg TID ARI Administration Lisinopril 2.5 mg 01/14/20 09:00 01/17/20 05:05 Zestril PO 2.5 mg DAILY ARI Administration - Exam General Appearance: NAD, awake alert Eye: PERRL, anicteric sclera ENT: normocephalic atraumatic, no oropharyngeal lesions Neck: supple, symmetric, no JVD, no thyromegaly, no lymphadenopathy Heart: RRR, no gallops, no rubs, normal peripheral pulses Heart - other findings: S1, S2 Respiratory: CTAB, no wheezes, no rales, no ronchi, normal chest expansion Gastrointestinal: soft, non-tender, non-distended, normal bowel sounds, no palpable masses Extremities: no cyanosis, no clubbing, no edema Skin: normal turgor, no lesions Neurological: cranial nerve grossly intact, normal sensation to touch, no focal deficits Musculoskeletal: normal tone, normal strength, no muscle wasting Psychiatric: A&O x 3, flat affect Hosp A/P (1) Type [address] elevation Code(s): I21.A1 - MYOCARDIAL INFARCTION TYPE 2 Status: Acute (2) Acute diastolic ACC/AHA stage C congestive heart failure Code(s): I50.31 - ACUTE DIASTOLIC (CONGESTIVE) HEART FAILURE Status: Acute (3) Diabetes type 2, controlled Code(s): E11.9 - TYPE 2 DIABETES MELLITUS WITHOUT COMPLICATIONS Status: Chronic Qualifiers: Diabetes mellitus correction insulin use: with lens mold setter use (4) Dyslipidemia Code(s): E78.5 - HYPERLIPIDEMIA, UNSPECIFIED Status: Chronic (5) Hypertension Code(s): I10 - ESSENTIAL (PRIMARY) HYPERTENSION Status: Chronic Qualifiers: Hypertension type: essential hypertension Qualified Code(s): I10 - Essential (primary) hypertension - Plan out of bed/ambulate, DVT proph w/SCDs Stable currently Continue ASA/Lipitor/Coreg Eliquis on hold Plan for CABG NPO after MN Continue Lasix 40mg po daily
--- NOTE | 2020-01-17 18:33 | PRG ---
DATE OF SERVICE: 01/17/2020 I visited with Mr. Kathleen this afternoon. He visited with CV Surgery. Recommendation was for bypass for tomorrow. He has opted out of proceeding with bypass surgery and would like to proceed with bypass surgery next week. He states he has some things that he has to take care of at home. He also does not have a Zoll that was ordered. He states he would like to go home and would not want to wait and would rather have it delivered to his home. He understands the risk of sudden if he leaves the hospital without the device. Plan is for us to follow up with Mr. Kathleen as an outpatient in the office next week and make sure he does undergo bypass surgery and make sure all of his questions were answered. Job ID: [id number]
[2020-01-17 18:56] VITALS: BP 134/88; TEMP 98.4
--- NOTE | 2020-01-17 21:09 | CON ---
DATE OF CONSULTATION: HISTORY OF PRESENT ILLNESS: This is a 59-year-old gentleman admitted for congestive heart failure about 4 days ago. He has undergone some diuresis, although he has no significant loss of weight. He admitted to some edema of his legs. He had an echocardiogram, that demonstrated ejection fraction of about 30% at best and probably closer to 20% or 25%. He had no significant valvular heart disease with [id number] mitral regurgitation and underwent a nuclear stress test showing a large fixed defect in the inferior lateral wall with an EF of 30% and no reversible ischemia. Cardiac catheterization was undertaken today demonstrating severe 3-vessel coronary artery disease with potential targets of PDA and obtuse marginal, which is diffusely diseased, and an LAD, which appears to be pruned. Cardiovascular risk factors are multiple and include poorly-controlled diabetes mellitus with a hemoglobin A1c of about 12. He has a history of , dyslipidemia, COPD, peripheral neuropathy, vascular claudication of his lower extremities, paroxysmal atrial fibrillation. HOME MEDICATIONS: Included; 1. Eliquis 5 b.i.d. 2. Lasix 20 a day. 3. Gabapentin 300 t.i.d. 4. Metformin 500 b.i.d. 5. Lisinopril 2.5 a day. 6. Tresiba subcu daily. The patient admits to taking his medicines sporadically. ALLERGIES: HE HAS NO KNOWN ALLERGIES. PAST SURGICAL HISTORY: Negative. 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 PHYSICAL EXAMINATION: VITAL SIGNS: Height 5 feet 8 inches. Weight 194. NECK: No carotid bruits. LUNGS: Clear to auscultation. CARDIAC: Soft systolic murmur at left of the sternal border. ABDOMEN: Firm, nontender. Unable to palpate organomegaly. EXTREMITIES: He has no peripheral edema at this time. He has palpable left femoral pulse with a dressing on the right groin. No popliteal or pedal pulses. No peripheral edema. REVIEW OF SYSTEMS: The patient has nocturia x2 to 3. He has claudication after walking around [employer] for about 5 to 10 minutes, relieved with resting on the cart, occurring over the distal anterior aspect of both lower legs and extending into the dorsum of the foot. The patient with severe left ventricular dysfunction, severe three-vessel coronary artery disease, medical noncompliance. Long-term prognosis is poor, but he may benefit with longevity standpoint with coronary artery bypass grafting. Tentatively planned on doing this surgery tomorrow, but he is adamant about going home for a week to take care of business. I have explained to him that he has critical coronary artery disease and he understands and still does not wish to have his surgery tomorrow. I have also explained to him that smoking post discharge would only further delay his surgery and he says he is not going to smoke. Job ID: [id number]
--- NOTE | 2020-01-17 23:13 | DIS ---
DATE OF ADMISSION: 01/13/2020 DATE OF DISCHARGE: 01/17/2020 DISCHARGE DIAGNOSES: 1. Non-ST elevation myocardial infarction type 2. 2. Acute diastolic congestive heart failure exacerbation with ejection fraction in the 30% range. 3. Multivessel coronary artery disease. 4. Diabetes mellitus type 2, insulin requiring, uncontrolled. 5. Dyslipidemia. 6. Hypertension. 7. Tobacco abuse. CONSULTATIONS: Dr. Jaswinder Lai with Cardiology Service. Dr. Faustino Wu with Cardiovascular Surgery Service. PERTINENT LABORATORY AND X-RAY FINDINGS: Hemoglobin A1c 11.6. Troponin I ranged between 0.154 to 1.161. BNP 680. Lipase 11. Total cholesterol 183, triglycerides 86, HDL 35, LDL 131. D-dimer less than 0.27. COVID-19 PCR not detected, 01/13/2020. Portable chest x-ray dated 01/13/2020, showed no acute cardiopulmonary process. 2D transthoracic echocardiogram dated 01/14/2020, showed ejection fraction in the 40% range with diastolic dysfunction. Mild left atrial enlargement. [id number] mitral regurgitation. Cardiolite stress test dated 01/15/2020 showed large fixed defect in the inferolateral wall. No reversible ischemia noted. Calculated ejection fraction 30%. Cardiac catheterization dated 01/17/2020, showed multivessel coronary artery disease. Please see dictated report for full details. HOSPITAL COURSE: The patient initially presented with increased shortness of breath and mild chest pain, diagnosed with acute congestive heart failure. The patient was placed on IV Lasix, undergoing 2D transthoracic echocardiogram showing ejection fraction in the 40% range. The patient was also noted with a non-ST elevation myocardial infarction type 2, prompting Cardiology evaluation. The patient underwent nuclear cardiac stress testing showing large fixed defect in the inferolateral wall with depressed ejection fraction in the 30% range. The patient proceeded to cardiac catheterization on 01/17/2020, showing multivessel coronary artery disease with ultimate recommendations for coronary artery bypass grafting. Cardiovascular Surgery Service was consulted and discussed the options with the patient, who decided to defer the surgery until later date. Risks of waiting were discussed with the patient; however, the patient desires to return home and pursue surgical options at a later date. I have examined the patient at the time of discharge and discussed followup instructions. The patient verbalized understanding and agreement, ready for discharge 01/17/2020. DISCHARGE MEDICATIONS: 1. Enteric-coated aspirin 81 mg p.o. daily. 2. Eliquis 5 mg p.o. b.i.d. 3. Metformin 500 mg p.o. b.i.d. 4. Lisinopril 2.5 mg p.o. daily. 5. Tresiba FlexTouch 24 units subcutaneously daily. 6. Gabapentin 300 mg p.o. t.i.d. 7. Lipitor 40 mg p.o. at bedtime. 8. Carvedilol 3.125 mg p.o. b.i.d. 9. Lasix 40 mg p.o. daily. FOLLOWUP: The patient may follow up with his primary care provider, Gianfranco Garduno on 01/23/2020 at 10 a.m. The patient may follow up with Dr. Jaswinder Lai and to call his office for appointment time and date. The patient may follow up with Dr. Faustino Wu to discuss future coronary artery bypass grafting. CONDITION ON DISCHARGE: Fair. ACTIVITY: Ad-duran. DIET: ADA and heart healthy. CODE STATUS: Full. DISPOSITION: Home, 01/17/2020. TIME SPENT: Total time preparing and coordinating discharge is 35 minutes. Job ID: [id number]
--- NOTE | 2020-01-18 08:48 | PQF ---
CLINICAL DOCUMENTATION CLARIFICATION FORM: Dear : Kei Farmer Date / Time: 01/18/2020 Please exercise your independent, professional judgment in responding to the clarification form. Clinical indicators are provided on the bottom of this form for your review Please check appropriate box(es): [ ] Primary/Essential Hypertension [ ] Emergency [ ] Urgency [ ] Crisis [ x ] Hypertensive Heart Disease [ ] Transient Hypertension [ ] Other diagnosis [ ] Unable to determine In addition, please specify: Present on Admission (POA): [ x ] Yes [ ] No [ ] Unable to determine Physician Signature: Date/Time: For continuity of documentation, please document condition throughout progress notes and discharge summary. Thank You. To be completed by CDI/Coding staff for physician review: Present Clinical Indicators - Signs / Symptoms / Labs Results and Location in Medical Record [X] BP160/70; 154/84; 114/80, Pulse 92, Resp 16, Temp 97.4 Vital signs 01/16 [X] CK-MB 2.4, Troponin I 0.154; 1.161; 1.138 Laboratory 01/12 [X] Pt found elevated BNP in context of known chronic combined CHF H&P p1 01/12 Dr Farmer [X] NSTEMI type 2 H&P p2 01/12 Dr Farmer Present Risk Factors Results and Location in Medical Record [X] AFib H&P p1 01/12 Dr Farmer [X] CHF H&P p1 01/12 Dr Farmer [X] HTN H&P p1 01/12 Dr Farmer [X] COPD H&P p1 01/12 Dr Farmer [X] DM H&P p1 01/12 Dr Farmer [X] Smoker ED Notes 01/12 [X] Cardiomyopathy PN 01/15 [X] HLD Consult 01/16 [X] CAD Consult 01/16 Present Treatments Results and Location in Medical Record [X] Coreg 3.125 mg oral MAR 01/14 [X] IV Cardizem 25 mg JUL 16 [X] Lisinoprol 2.5 mg oral JUL 16 [X] Nitro-bid 2% Ointment MAR 01/12 [X] LHC Cardiac procedure 01/16 Dr Lai [X] Cardiology Consult Consult Dr Aquino 01/12 [X] Continue serial BP monitoring H&P p4 01/12 Dr Farmer CDS/Patch Press Operator Signature: Kitty Miller Phone #: [phone] Date/Time: 01/18/2020 0847 This is a permanent part of the Medical Record [facility]
== END 2020-01-17 20:09 | disposition home or self-care (01) | DRG 282 ==
LOC: ERS 08:53 → 2SW 13:30 → OBSVTOIN 15:37 → 2NO 17:33
PROVIDERS: ADMIT Family Medicine; ATTEND Family Medicine
PROC: 4A023N7 Measurement of Cardiac Sampling and Pressure, Left Heart, Percutaneous Approach (ICD-10-PCS; principal; 2020-01-17)
PROC: B2111ZZ Fluoroscopy of Multiple Coronary Arteries using Low Osmolar Contrast (ICD-10-PCS; 2020-01-17)
DX: I11.0 Hypertensive heart disease with heart failure (principal); I21.A1 Myocardial infarction type 2; I50.43 Acute on chronic combined systolic (congestive) and diastolic (congestive) heart failure; I25.10 Atherosclerotic heart disease of native coronary artery without angina pectoris; Z20.828 Contact with and (suspected) exposure to other viral communicable diseases; E11.65 Type 2 diabetes mellitus with hyperglycemia; E78.5 Hyperlipidemia, unspecified; F17.210 Nicotine dependence, cigarettes, uncomplicated; I48.0 Paroxysmal atrial fibrillation; E11.40 Type 2 diabetes mellitus with diabetic neuropathy, unspecified; J44.9 Chronic obstructive pulmonary disease, unspecified; I42.9 Cardiomyopathy, unspecified; R94.39 Abnormal result of other cardiovascular function study; I34.0 Nonrheumatic mitral (valve) insufficiency; Z91.19 Patient's noncompliance with other medical treatment and regimen; Z79.01 Long term (current) use of anticoagulants; Z79.899 Other long term (current) drug therapy; Z79.84 Long term (current) use of oral hypoglycemic drugs
CPT/HCPCS: 36415; 36416; 71045; 76942; 78452; 80048; 80053; 80061; 82550; 82553; 83036; 83690; 83735; 83880; 84484; 85025; 85379; 87635; 93005; 93017; 93306; 93458; 94760; 96374; 96375; 97139; 99152; A9500; C1760; G0378; J1644; J1815; J1940; J2250; J2785; J3010; Q9967; U0003

== ENCOUNTER 2020-01-23 09:26 | Emergency (ER) | payer BC ==
[2020-01-23] MEDS ORDERED: Acetaminophen 500 MG TAB ONE (09:41)
[2020-01-23 09:56] LABS: #Lymphocytes 0.5 thou/uL (1.20-3.40); #Monocytes 0.6 thou/uL (0.11-0.59); #Neutrophils 8.7 thou/uL (1.40-6.50); %Basophils 0.3 % (0.0-1.0); %Eosinophils 0.4 % (0.0-10.0); %Monocytes 6.3 % (0.0-10.0); %Neutrophils 88.1 % (42.0-75.0); Hemoglobin 15.5 g/dL (14.0-18.0); Mean Corpuscular HGB CONC 33.5 g/dL (32.0-36.0); Mean Corpuscular Hemoglobin 29.5 pg (27.0-31.0); Mean Corpuscular Volume 88.1 fL (78.0-98.0); Mean Platelet Volume 8.4 fL (7.4-10.4); Platelet Count 177 thou/uL (130-400); RBC Distribution Width 12.3 % (11.5-14.5); Red Blood Cell (RBC) Count 5.24 mill/uL (4.70-6.10); White Blood Cell (WBC) Count 9.8 thou/uL (4.8-10.8)
[2020-01-23] MEDS ORDERED: Cefepime 2 GM in Sodium Chloride 0.9% 100 ML IVPB SCH (10:00)
--- NOTE | 2020-01-23 10:14 | CT ---
EXAM: CT brain without contrast HISTORY: Weakness and dizziness COMPARISON: None TECHNIQUE: Multiple contiguous axial images were obtained and a CT of the brain without contrast. FINDINGS: The brain is normal in morphology and attenuation without focal lesions or confluent areas of infarction. There is no evidence of hydrocephalus, intracranial hemorrhage, or extra-axial fluid collection. The calvarium and overlying soft tissues are unremarkable. The visualized paranasal sinuses and masto id air cells are well aerated. IMPRESSION: No evidence of acute intracranial abnormality
[2020-01-23 10:22] LABS: ALT (SGPT) 13 U/L (8-55); AST (SGOT) 15 U/L (5-34); Albumin 3.5 g/dL (3.5-5.0); Alkaline Phosphatase 87 U/L (40-110); Anion Gap 16 mmol/L (10-20); BUN (Urea Nitrogen) 30 mg/dL (8.4-25.7); Bilirubin, Total 0.7 mg/dL (0.2-1.2); Calc. Creatinine Clearance 0 mL/min (70-130); Calcium 9.2 mg/dL (7.8-10.44); Carbon Dioxide 24 mmol/L (22-29); Chloride 99 mmol/L (98-107); Estimated GFR-MDRD 63; Globulin 3.9 g/dL (2.4-3.5); Glucose 256 mg/dL (70-105); Potassium 4.6 mmol/L (3.5-5.1); Protein, Total 7.4 g/dL (6.0-8.3); Sodium 134 mmol/L (136-145)
[2020-01-23] MEDS ORDERED: Vancomycin 1.5 GRAM/300 ML BAG 1.5 GM in Premix Bag 1 BAG IVPB SCH (10:30)
[2020-01-23] MEDS ORDERED: Sodium Chloride 0.9% 500 ML IV SCH (10:30)
[2020-01-23] MEDS ORDERED: Cefepime 2 GM VIAL ONE (10:31)
--- NOTE | 2020-01-23 11:53 | RAD ---
PORTABLE CHEST: Date: 01/23/2020 HISTORY: Weakness and dizziness. COMPARISON: 01/13/2020. FINDINGS: No evidence of acute infiltrate. Mild increased interstitial markings in the lower lung cardenas appear stable. Vasculature is normal. Heart and mediastinum unremarkable. IMPRESSION: No acute process or significant interval change. POS: [facility]
--- NOTE | 2020-01-23 11:55 | ULT ---
ULTRASOUND PSEUDOANEURYSM COMPRESSION EVALUATION: Date: 01/23/2020 INDICATION: History of right inguinal pain and concern for pseudoaneurysm. TECHNIQUE: Santiago scale, color Doppler, and spectral Doppler images were obtained of the right inguinal region to evaluate for pseudoaneurysm. FINDINGS: Within the region of interest is a 1.3 x 0.6 x 1.7 cm hematoma. There is an enlarged lymph node withi n the right inguinal region measuring 2.2 x 0.7 cm. There is appropriate flow within the adjacent rig ht common femoral vein, right greater saphenous vein, and right common femoral artery. IMPRESSION: 1. No evidence of pseudoaneurysm. 2. Small subcutaneous hematoma within the right inguinal region measuring 1.3 cm. Recommend clinical follow-up and sonographic follow-up as necessary. 3. Slightly prominent right inguinal lymph node. POS: [facility]
[2020-01-23 13:13] LABS: CKMB 0.5 ng/mL (0-6.6)
[2020-01-23 14:09] LABS: Bilirubin Negative (Negative); Blood, Urine 2+ (Negative); Clarity Turbid (Clear); Glucose, Urine (Dipstick) 70 mg/dL (Negative); Ketone, Urine Negative (Negative); Leukocyte 250 Leu/uL (Negative); Nitrite Negative (Negative); Protein, Urine (Dipstick) 300 mg/dL (Neg-Trace); RBC/HPF 21-50 HPF (0-3); Specific Gravity, Urine 1.021 (1.002-1.036); Squamous Epithelial 0-3 HPF (0-3); Urobilinogen Normal mg/dL (Less than 2); WBC/HPF 21-50 HPF (0-3)
[2020-01-23 14:11] LABS: Bacteria/HPF 1+ HPF (None Seen)
== END 2020-01-23 15:25 | disposition home or self-care (01) ==
LOC: ERS 09:26
DX: N39.0 Urinary tract infection, site not specified (principal); I11.0 Hypertensive heart disease with heart failure; I50.9 Heart failure, unspecified; E11.9 Type 2 diabetes mellitus without complications; F17.210 Nicotine dependence, cigarettes, uncomplicated; Z79.84 Long term (current) use of oral hypoglycemic drugs; Z79.899 Other long term (current) drug therapy
CPT/HCPCS: 70450; 71045; 76936; 80053; 81003; 81015; 82553; 83605; 83880; 84484; 85025; 87040; 87077; 87086; 87149; 87186; 96365; 96366; J0692; J3370

== ENCOUNTER 2020-01-28 07:44 | Inpatient (IN) | payer BC, OTHER ==
[2020-01-28] MEDS ORDERED: Cefepime 2 GM VIAL ONE (08:29)
[2020-01-28 08:50] LABS: #Basophils 0.1 thou/uL (0.0-0.2); #Eosinphils 0.3 thou/uL (0.0-0.7); #Lymphocytes 1.9 thou/uL (1.20-3.40); #Monocytes 0.7 thou/uL (0.11-0.59); #Neutrophils 6.8 thou/uL (1.40-6.50); %Basophils 0.6 % (0.0-1.0); %Eosinophils 2.6 % (0.0-10.0); %Lymphocytes 19.2 % (21.0-51.0); %Monocytes 7.7 % (0.0-10.0); %Neutrophils 69.8 % (42.0-75.0); Hemoglobin 13.8 g/dL (14.0-18.0); Mean Corpuscular HGB CONC 32.8 g/dL (32.0-36.0); Mean Corpuscular Hemoglobin 29.1 pg (27.0-31.0); Mean Corpuscular Volume 88.7 fL (78.0-98.0); Mean Platelet Volume 7.7 fL (7.4-10.4); Platelet Count 261 thou/uL (130-400); RBC Distribution Width 12.3 % (11.5-14.5); Red Blood Cell (RBC) Count 4.76 mill/uL (4.70-6.10); White Blood Cell (WBC) Count 9.7 thou/uL (4.8-10.8)
[2020-01-28 09:11] LABS: ALT (SGPT) 29 U/L (8-55); AST (SGOT) 24 U/L (5-34); Albumin 3.4 g/dL (3.5-5.0); Alkaline Phosphatase 114 U/L (40-110); Anion Gap 14 mmol/L (10-20); BUN (Urea Nitrogen) 33 mg/dL (8.4-25.7); Bilirubin, Total 0.3 mg/dL (0.2-1.2); Calc. Creatinine Clearance 0 mL/min (70-130); Calcium 9.2 mg/dL (7.8-10.44); Carbon Dioxide 28 mmol/L (22-29); Chloride 102 mmol/L (98-107); Estimated GFR-MDRD 83; Globulin 3.6 g/dL (2.4-3.5); Glucose 281 mg/dL (70-105); Potassium 4.1 mmol/L (3.5-5.1); Sodium 140 mmol/L (136-145)
--- NOTE | 2020-01-28 09:32 | RAD ---
CHEST 1 VIEW: HISTORY: Abnormal blood cultures, staph in blood. COMPARISON: 01/23/2020. FINDINGS: Heart size is normal. The lungs are clear. No confluent pneumonia, overt edema, or pleural effusion . IMPRESSION: No significant acute intrathoracic disease. POS: OFF
[2020-01-28] MEDS ORDERED: Iopamidol-370 76% 500 ML 1 ML ONE (10:23)
[2020-01-28 10:44] LABS: Bacteria/HPF None Seen HPF (None Seen); Bilirubin Negative (Negative); Blood, Urine Trace (Negative); Clarity Clear (Clear); Glucose, Urine (Dipstick) 300 mg/dL (Negative); Ketone, Urine Negative (Negative); Leukocyte Negative Leu/uL (Negative); Nitrite Negative (Negative); Protein, Urine (Dipstick) 50 mg/dL (Neg-Trace); RBC/HPF 0-3 HPF (0-3); Specific Gravity, Urine 1.011 (1.002-1.036); Squamous Epithelial None Seen HPF (0-3); Urobilinogen Normal mg/dL (Less than 2); WBC/HPF None Seen HPF (0-3)
[2020-01-28] MEDS ORDERED: Dextrose 50% Abboject 50 ML SYRINGE SLOW IVP PRN (11:26)
[2020-01-28] MEDS ORDERED: Calcium Carbonate 500 MG ChewTAB PO PRN (11:26)
[2020-01-28] MEDS ORDERED: Bisacodyl 10 MG SUPP PR PRN (11:26)
[2020-01-28] MEDS ORDERED: Dextrose 5% in Water 1,000 ML IV PRN (11:26)
[2020-01-28] MEDS ORDERED: Guaifenesin DM 100-10/5 ML UDCUP PO PRN (11:26)
[2020-01-28] MEDS ORDERED: Senokot S 8.6-50 MG TAB PO PRN (11:26)
[2020-01-28] MEDS ORDERED: Ondansetron PF 4 MG/2 ML Vial IVP PRN (11:26)
[2020-01-28] MEDS ORDERED: Heparin 1,000 UNITS/ML VIAL ONE (11:31)
--- NOTE | 2020-01-28 13:05 | ULT ---
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 Right inguinal pain. Simultaneous hematoma seen on prior ultrasound exam on 01/23/20 COMPARISON: 01/23/2012 FINDINGS: Hypoechoic area seen in the right inguinal region on prior examination is not seen on today's study l ikely related to resolution of hematoma. No new fluid collection or mass is seen in the right inguinal region. Previously seen enlarged lymph node right inguinal region is again seen measuring 4.2 cm x 2.8 cm x 1 cm and not significantly changed in size compared to prior study. No additional enlarged lymph nodes are seen. Flow is demonstrated in the right lower extremity common femoral artery and vein. IMPRESSION: 1. Resolution of small right inguinal hematoma when compared to prior study. No new fluid collection or mass is seen in the right inguinal region. 2. Persistent prominent right inguinal lymph node.
[2020-01-28] MEDS ORDERED: Vancomycin HCl 1.75 GM in Sodium Chloride 0.9% 500 ML IVPB SCH (14:00)
--- NOTE | 2020-01-28 14:27 | CON ---
DATE OF CONSULTATION: HISTORY OF PRESENT ILLNESS: The patient is a 59-year-old gentleman, who presented with congestive heart failure about 10 days to two weeks ago and was found to have an ejection fraction of about 40%, severe diffuse triple-vessel coronary artery disease and recommendation for coronary artery bypass grafting was made. The patient's potential targets included a diffusely diseased LAD, a more severely diseased obtuse marginal and a PDA that was small and diseased. The patient declined intervention at that time because he had to take care of some other issues. He then returned to the hospital last week with a temperature to 103 degrees, was given Keflex and told he had a urinary tract infection. Blood cultures which were done in the emergency room were returned Staph aureus. The patient evidently has done well. However, given these positive blood culture findings, I asked him to return to the hospital today, so that he could be monitored prior to his proposed coronary artery bypass grafting. PAST MEDICAL HISTORY: Most notable for medical noncompliance. He has diabetes mellitus, which has been poorly controlled with his most recent A1c of 12. He has a history of hypertension, dyslipidemia, COPD, peripheral neuropathy and vascular claudication as well as paroxysmal atrial fibrillation. PAST SURGICAL HISTORY: Negative. 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 He is . He was a regular smoker. HOME MEDICATIONS: Include; 1. Lasix 40 mg a day. 2. Gabapentin 300 t.i.d. 3. Metformin 500 b.i.d. 4. Coreg 3.125 b.i.d. 5. Lisinopril 2.5 daily. 6. Tresiba 24 units daily. 7. He is also taking an aspirin a day. PHYSICAL EXAMINATION: GENERAL: Alert, cooperative gentleman, in no distress. LUNGS: Clear to auscultation at this time. CARDIAC: Reveals a regular rate and rhythm with a soft systolic murmur at the left lower sternal border. EXTREMITIES: He has no peripheral edema. He has a palpable left femoral pulse with a palpable right femoral pulse. I do not appreciate popliteal or pedal pulses. PLAN: At this time is for coronary artery bypass grafting tomorrow with vancomycin antibiotics being started today. His white count is normal, creatinine is about 1, and his BNP is elevated about 800, although his chest x-ray is clear and he states he has no difficulty with his breathing as he did when he presented to the hospital previously. Informed consent has been obtained for coronary artery bypass grafting. Job ID: [id number]
[2020-01-28] MEDS: Gabapentin 300 MG CAP PO SCH ×2 (15:08→20:57)
[2020-01-28] MEDS: Mupirocin 2% Ointment 22 GM Tube TOP SCH ×2 (15:25→20:58)
--- NOTE | 2020-01-28 16:31 | HP ---
REASON FOR ADMISSION: MSSA bacteremia, fever. HISTORY OF PRESENTING ILLNESS: The patient had come to emergency room on the with complaints of fever. He was found to had a fever of 102 degrees and had blood cultures drawn and was sent on Keflex. He also had urine cultures drawn then. His blood cultures x2 grew Staph aureus resistant to clindamycin, tetracycline, and erythromycins, but sensitive to all other antibiotics. His urine culture was contaminated taken on the of this month. He was asked by Dr. Wu to come to the emergency room yesterday evening. The original plan was for him to have CABG for three-vessel disease tomorrow. The patient has been on Keflex for the last 3 days and states he has been getting better. He does not have any complaints of cough or expectoration. No complaints of urinary frequency or urgency now. Has no chronic wounds. The patient states his right groin hurts where he had a catheterization done on 01/13/2020. Has no complaints of pain in his neck or in any of the back areas. No abdominal pain, diarrhea. PAST MEDICAL AND SURGICAL HISTORY: Coronary artery disease for three vessel, CABG tomorrow, prior ejection fraction of 20% to 25%, which is improved COPD, hypertension, diabetes mellitus type 2, peripheral vascular disease, peripheral neuropathy, dyslipidemia. CURRENT MEDICATIONS: The patient is on; 1. Gabapentin 300 mg p.o. 3 times daily. 2. Glucophage 500 mg p.o. twice daily. 3. Keflex 500 mg p.o. 4 times daily which was started on 01/25/2020. 4. Tresiba 24 units subcu at lunch time. 5. Lisinopril 2.5 mg p.o. daily. 6. Carvedilol 3.125 mg p.o. twice daily. 7. Aspirin 81 mg p.o. daily. 8. Lasix 40 mg p.o. daily. 9. Atorvastatin 40 mg p.o. at bedtime. ALLERGIES: NO KNOWN DRUG ALLERGIES. PERSONAL HISTORY: Quit smoking two months back, prior to which I smoked one and a half packs for the last 30 years or so. Has used marijuana in the past. Does not abuse alcohol or drugs. Lives with his and sister. 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 FAMILY HISTORY: Both parents in their 50s. Mother had history of stroke and was a smoker. Father of complications from diabetes. CODE STATUS: Full. Power of infusion therapy nurse is his . REVIEW OF SYSTEMS: CONSTITUTIONAL: Negative for weight loss or gain, ability to conduct usual activities. SKIN: Negative for rash, itching. EYES: Negative for double vision, pain. ENT/MOUTH: Negative for nose bleeding, neck stiffness, pain, tenderness. CARDIOVASCULAR: Negative for palpitations, dyspnea on exertion, orthopnea. RESPIRATORY: Negative for shortness of breath, wheezing, cough, hemoptysis, fever or night sweats. GASTROINTESTINAL: Negative for poor appetite, abdominal pain, heartburn, nausea, vomiting, constipation, or diarrhea. GENITOURINARY: Negative for urgency, frequency, dysuria, nocturia. MUSCULOSKELETAL: Negative for pain, swelling. NEUROLOGIC/PSYCHIATRIC: Negative for anxiety, depression. ALLERGY/IMMUNOLOGIC: Negative for skin rash, bleeding tendency. PHYSICAL EXAMINATION: GENERAL: The patient is a 59-year-old male, who is currently not in any acute distress. VITAL SIGNS: Blood pressure 160/84, pulse 88 per minute, respiratory rate 16 per minute, temperature 98.4 degrees Fahrenheit, saturating 98% on room air. NECK: Supple. No elevated JVD. HEENT: Eyes; extraocular muscles intact. Pupils reacting to light. Oral cavity, mucous membranes are dry. No exudates or congestion. CARDIOVASCULAR SYSTEM: S1 and S2 heard. Regular rhythm. RESPIRATORY SYSTEM: Air entry 1+ bilateral. Scattered rhonchi plus no wheezes or rales. ABDOMEN: Soft. Bowel sounds heard. No tenderness, rigidity, or guarding. EXTREMITIES: No peripheral edema or calf tenderness. No ischemic ulcers or gangrene. CENTRAL NERVOUS SYSTEM: No gross focal motor deficits noted. The patient is alert and oriented well. PSYCHIATRIC SYSTEM: The patient's mood is euthymic. No hallucinations or delusions. LABORATORY DATA: EKG done shows normal sinus rhythm at 82 beats per minute. There is poor R-wave progression. White count of 9.7, H and H 13 and 42, platelet count 261, MCV is 88 with 69% neutrophils. Electrolytes stable. BUN 33, creatinine 0.9, serum bicarb is 28, serum glucose 281. Albumin is 3.4. BNP 832. UA shows no evidence of infection. Chest x-ray done shows no acute cardiopulmonary abnormality. Right groin prior coronary angiogram puncture site shows resolution of small right inguinal hematoma when compared to prior study. No new fluid collection or masses seen. There is a persistent right inguinal lymph node seen. CLINICAL IMPRESSION AND PLAN: The patient will be admitted to telemetry for MSSA bacteremia. / taken on 01/23/2020. He has no obvious source of this infection as such. We will repeat blood cultures stat now. He will be started on vancomycin. We will continue his aspirin, Lipitor, Coreg, gabapentin as before. A repeat echo will be obtained to rule out any vegetation. He has also had COVID test drawn on as part of preop workup for CABG. We will see what his preliminary blood cultures show. The patient is scheduled to OR for tomorrow. For now, we will closely monitor him on telemetry for now. We will also consult Dr. Stallworth for Infectious Disease. The patient does not have any specific point tenderness on his clinical exam of his entire spine. No further MRIs with contrast will be obtained with possible worsening of his renal function prior to CABG. Job ID: [id number]
--- NOTE | 2020-01-28 17:42 | CT ---
CT Pelvis W Con History: Pelvic pain Comparison: Ultrasound same day Findings: Moderate diverticular disease sigmoid colon. No free intraperitoneal gas or fluid. Moderate-sized 3 cm hematoma the right groin with luminal irregularity the right common femoral arter y. The common femoral artery is narrowed with 50% narrowing at the area of recent access. No active contrast extravasation. Impression: Superficial right groin hematoma measuring up to 3 cm without active contrast extravasati on.
--- NOTE | 2020-01-28 20:16 | CON ---
DATE OF CONSULTATION: REASON: Bacteremia. HISTORY OF PRESENT ILLNESS: A 59-year-old who has a history of type 2 diabetes, hypertension, and triple-vessel coronary artery disease, whose last admission to this hospital was in January. He basically presented with shortness of breath and chest pain, and was diagnosed with acute CHF. He was treated. EF was found to be 40% and he had a [id number] elevation IA, so he had cardiac stress testing, which showed a fixed defect. He underwent cardiac cath which showed multivessel disease with a recommendation for coronary bypass graft surgery. The patient deferred the surgery until a later date and is discharged on Tresiba, Lipitor, gabapentin, metformin, Eliquis, aspirin, Coreg, and Lasix. On January 23, he presented to the emergency room with weakness; dizziness mostly when he would stand up; some nausea, but no vomiting. Did not have any cough or shortness of breath. His temperature was 103 in the emergency room, O2 saturations were 96, BP 140/76. The exam was not particularly remarkable. He had a right femoral artery hematoma noted. The patient had blood culture submitted and then he was sent to the emergency room because he had 2 of 2 sets of his blood cultures return positive. He was scheduled for bypass tomorrow. In the emergency room, he was diagnosed with a UTI based on elevated wbc's and urinalysis. However, urine culture sample was no growth. Final results were actually 10,000 to 25,000 CFUs of normal skin song identified. Now, the patient is having pain in the right groin still. He has no headaches. No shortness of breath or back pain. No neck pain. No cough, sputum production, or abdominal pain. Voiding without difficulty. Never had dysuria. No joint symptoms. No neurological symptoms. 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 Never smoker. . ALLERGIES: NONE. CURRENT MEDICATIONS: 1. Coreg. 2. Lovenox. 3. Insulin. 4. Vancomycin. PHYSICAL EXAMINATION: VITAL SIGNS: T-max now 98.6, blood pressure 140/65, pulse 83, respirations 16, O2 saturation 96. SKIN: Shows peripheral IV access. He has no Pacheco catheter. No lymphadenopathy. HEENT: Ocular movements conjugate. Oral cavity normal. NECK: Supple. No spine tenderness. LUNGS: Clear to auscultation and percussion. HEART: S1, S2. Regular rate. No S3 or S4. ABDOMEN: Soft. There is a tender nodule in the right groin area measuring, I would say, about 8 cm. There is no bruising noted over the site. It is right over the site of the previous catheterization. EXTREMITIES: No joint inflammatory activity. Moves extremities equally with limitations imposed by this inflammatory process. NEUROLOGIC: Otherwise nonfocal. LABORATORY DATA: White cell count was 9.7, hemoglobin 13, platelets 261, 69% neutrophils. Creatinine 0.93. Transaminases normal. Urinalysis normal. The patient had an ultrasound of the groin which showed persistent prominent right inguinal lymph node. ASSESSMENT: Type 2 diabetes, coronary artery disease, ischemic cardiomyopathy with diminished ejection fraction, triple-vessel disease, scheduled for bypass graft surgery tomorrow. Staphylococcus aureus bacteremia identified on January 22 with a methicillin-susceptible strain 2 out of 2 sets. His procedure for the angiogram that used the right femoral artery, I think, was on January 15 or , so this is 21 days after the procedure, still with the mass there and tenderness. DISCUSSION: The patient has a most likely hospital-acquired MSSA infection associated with right groin access site. This is a presumptive diagnosis. We do not yet have a conclusive evidence to prove this assumption. Other possibilities will be endocarditis. Other sites of involvement are not apparent at this time. Persistence of marked tenderness in the right groin with swelling plus the MSSA bacteremia makes this as the more likely site. We will go ahead and order a CT pelvis with contrast and see if there is further evidence to suggest that this is the culprit. If that is the case, then the surgical procedure will have to be postponed until this is treated. Job ID: [id number]
[2020-01-28] MEDS: Carvedilol 3.125 MG TAB PO SCH (20:57)
[2020-01-28] MEDS: Oxacillin 2 GM in Sodium Chloride 0.9% 100 ML IVPB SCH (20:57)
[2020-01-28] MEDS: Atorvastatin Calcium 40 MG TAB PO SCH (20:57)
[2020-01-28] MEDS: Acetaminophen 325 MG TAB PO PRN (20:57)
[2020-01-28] MEDS ORDERED: Vancomycin 1 GM in Premix Bag 1 BAG IVPB SCH (21:00)
[2020-01-29] MEDS: Oxacillin 2 GM in Sodium Chloride 0.9% 100 ML IVPB SCH ×6 (01:00→20:41)
[2020-01-29 04:29] LABS: #Basophils 0.1 thou/uL (0.0-0.2); #Eosinphils 0.3 thou/uL (0.0-0.7); #Monocytes 0.8 thou/uL (0.11-0.59); #Neutrophils 5.3 thou/uL (1.40-6.50); %Basophils 0.7 % (0.0-1.0); %Eosinophils 3.4 % (0.0-10.0); %Monocytes 8.9 % (0.0-10.0); %Neutrophils 63.1 % (42.0-75.0); Hemoglobin 12.7 g/dL (14.0-18.0); Mean Corpuscular Hemoglobin 28.5 pg (27.0-31.0); Mean Corpuscular Volume 89.1 fL (78.0-98.0); Mean Platelet Volume 7.6 fL (7.4-10.4); Platelet Count 203 thou/uL (130-400); RBC Distribution Width 12.2 % (11.5-14.5); Red Blood Cell (RBC) Count 4.44 mill/uL (4.70-6.10); White Blood Cell (WBC) Count 8.4 thou/uL (4.8-10.8)
[2020-01-29 04:51] LABS: Anion Gap 14 mmol/L (10-20); BUN (Urea Nitrogen) 20 mg/dL (8.4-25.7); Calc. Creatinine Clearance 125 mL/min (70-130); Calcium 8.1 mg/dL (7.8-10.44); Carbon Dioxide 25 mmol/L (22-29); Chloride 103 mmol/L (98-107); Estimated GFR-MDRD Greater than 90; Glucose 210 mg/dL (70-105); Potassium 3.5 mmol/L (3.5-5.1); Sodium 138 mmol/L (136-145)
[2020-01-29] MEDS: Carvedilol 3.125 MG TAB PO SCH ×2 (08:43→20:40)
[2020-01-29] MEDS: Aspirin 81 mg Enteric Coated Tablet PO SCH (08:43)
[2020-01-29] MEDS: Gabapentin 300 MG CAP PO SCH ×3 (08:43→20:40)
[2020-01-29] MEDS: Enoxaparin Sodium 40 MG/0.4 ML SYRINGE SC SCH (08:43)
[2020-01-29] MEDS: Mupirocin 2% Ointment 22 GM Tube TOP SCH ×3 (08:52→20:42)
[2020-01-29] MEDS ORDERED: Magnevist 469MG/ML 20 ML VIAL ONE ×3 (10:48)
--- NOTE | 2020-01-29 10:58 | PDOC.HOSPP ---
- Subjective Encounter Date: 01/29/20 Encounter Time: 10:30 Subjective: no c/o sob or chest pain mild chronic low back pain no fever ate his breakfast is amb in room - Objective Vital Signs & Weight: Vital Signs (12 hours) Temp Pulse Resp BP Pulse Ox 01/29/20 08:42 99.6 F 82 16 150/72 H 98 01/29/20 03:00 97.9 F 75 18 134/69 98 Weight Weight 189 lb 1.6 oz I&O: 01/28/20 01/29/20 01/30/20 06:59 06:59 06:59 Intake Total 1510 Output Total 800 Balance 710 Result Diagrams: 01/29/20 04:08 01/29/20 04:08 Additional Labs: Accuchecks 01/28/20 01/28/20 22:24 16:58 POC Glucose 280 H 215 H Hospitalist ROS - Medication Medications: Active Medications Generic Name Dose Route Start Last Admin Trade Name Freq PRN Reason Stop Dose Admin Acetaminophen 650 mg 01/28/20 11:26 01/28/20 20:57 Acetaminophen 325 Mg Tab PO 650 mg Q4H PRN Administration Headache/Fever/Mild Pain (1-3) Aspirin 81 mg 01/29/20 09:00 01/29/20 08:43 Aspirin 81 Mg Enteric Coated Tablet PO 81 mg DAILY ARI Administration Atorvastatin Calcium 40 mg 01/28/20 21:00 01/28/20 20:57 Atorvastatin Calcium 40 Mg Tab PO 40 mg HS ARI Administration Carvedilol 3.125 mg 01/28/20 21:00 01/29/20 08:43 Carvedilol 3.125 Mg Tab PO 3.125 mg BID ARI Administration Enoxaparin Sodium 40 mg 01/29/20 09:00 01/29/20 08:43 Enoxaparin Sodium 40 Mg/0.4 Ml Syringe SC 40 mg 0900 ARI Administration Gabapentin 300 mg 01/28/20 15:00 01/29/20 08:43 Gabapentin 300 Mg Cap PO 300 mg TID ARI Administration Oxacillin Sodium 2 gm/ Sodium 100 mls @ 200 mls/hr 01/28/20 21:00 01/29/20 08:43 Chloride IVPB 100 mls Q4HR ARI Administration Mupirocin 0 gm 01/28/20 15:00 01/29/20 08:52 Mupirocin 2% Ointment 22 Gm Tube TOP 1 mg TID ARI Administration Sodium Chloride 10 ml 01/28/20 21:00 01/29/20 08:51 Flush - Normal Saline 10 Ml Syringe IVF 10 ml Q12HR ARI Administration - Exam General Appearance: awake alert Eye: PERRL, anicteric sclera ENT: no oropharyngeal lesions, moist mucosa Neck: supple, no JVD Heart: RRR, no murmur Respiratory: no wheezes, no rales Gastrointestinal: soft, non-tender, non-distended, normal bowel sounds Extremities: no cyanosis, no edema Neurological: cranial nerve grossly intact, no focal deficits Psychiatric: A&O x 3 Hosp A/P (1) CAD (coronary artery disease) Code(s): I25.10 - ATHSCL HEART DISEASE OF [place] CORONARY ARTERY W/O ANG PCTRS Status: Acute Qualifiers: Coronary Disease-Associated Artery/Lesion type: [place] artery [place] vs. transplanted heart: [place] heart Associated angina: with stable angina Qualified Code(s): I25.118 - Atherosclerotic heart disease of [place] coronary artery with other forms of angina pectoris (2) MSSA bacteremia Code(s): R78.81 - BACTEREMIA; B95.61 - METHICILLIN SUSCEP STAPH INFCT CAUSING DIS CLASSD ELSWHR Status: Acute (3) Chronic CHF Code(s): I50.9 - HEART FAILURE, UNSPECIFIED Status: Chronic Qualifiers: Heart failure type: combined systolic and diastolic Qualified Code(s): I50.42 - Chronic combined systolic (congestive) and diastolic (congestive) heart failure (4) Diabetes type 2, controlled Code(s): E11.9 - TYPE 2 DIABETES MELLITUS WITHOUT COMPLICATIONS Status: Chronic Qualifiers: Diabetes mellitus [facility] insulin use: with exterminator helper termite use (5) Dyslipidemia Code(s): E78.5 - HYPERLIPIDEMIA, UNSPECIFIED Status: Chronic (6) Hypertension Code(s): I10 - ESSENTIAL (PRIMARY) HYPERTENSION Status: Chronic Qualifiers: (7) Neuropathy Code(s): G62.9 - POLYNEUROPATHY, UNSPECIFIED Status: Chronic - Plan is on nafcillin, prelim repeat blood cs x2 are -ve will order MRI spine to complete inf w/u pelvic CT, echo show no focus of infection continue home meds as above await ID clearance for cabg
[2020-01-29] MEDS ORDERED: Sodium Chloride 0.9% 1,000 ML IV SCH (11:00)
[2020-01-29] MEDS: HumaLOG 300 UNITS/3 ML VIAL SC PRN ×3 (11:27→21:34)
[2020-01-29 13:25] LABS: SARS-CoV-2 MS2 Positive; SARS-CoV-2 N Gene Negative; SARS-CoV-2 S Gene Negative; SARS-CoV-2 by NAA Not Detected (NotDetected); SARS-CoV-2 orf1ab Negative
--- NOTE | 2020-01-29 16:25 | MRI ---
Exam: Thoracic spine MRI with and without contrast HISTORY: Staph bacteremia. Evaluate for discitis/infection of the spine. COMPARISON: none FINDINGS: Appropriate T1 marrow signal intensity of the thoracic vertebra. Thoracic spine vertebral body height s are maintained. No fracture. No significant STIR hyperintensity to suggest ligamentous injury or vertebral body edema. Visualized mediastinum, lung parenchyma and solid organs do not demonstrate any acute abnormality. The thoracic cord has a normal size and signal intensity. No cord malacia or cord expansion. 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 Throughout the thoracic spine, neural foramina are patent. Postcontrast images do not demonstrate any abnormal enhancement of the vertebral bodies or disc space s. There is no abnormal enhancement with regards to the thoracic cord. Throughout the thoracic spine, endplates are preserved. No abnormal fluid signal intensity in the dis cs. T5-T6: Central disc herniation. Mild central canal stenosis T7-T8: Central disc herniation. Mild to moderate central canal stenosis T8-T9: Mild flattening of the thecal sac secondary to a central disc herniation T9-T10: Left right paracentral disc herniations. Mild central canal stenosis. Mild mass effect on the right hemicord T10-T11: Broad-based disc bulge with mild central canal stenosis T11-T12: Minimal left right paracentral disc herniations. IMPRESSION: 1. No MR evidence of discitis osteomyelitis or epidural abscess 2. No abnormal signal intensity of the thoracic cord. 3. Degenerative changes of the thoracic spine as described above.
--- NOTE | 2020-01-29 16:26 | MRI ---
MR the lumbar spine with and without contrast: 01/29/2020 History: Bacteremia, assess for discitis COMPARISON: None. TECHNIQUE: Multiplanar multisequence MR images were obtained of lumbar spine with and without IV cont rast FINDINGS: On the basis of 5 lumbar type vertebral bodies, conus medullaris terminates at [id number] level. Sagittal STIR imaging demonstrates no focal area of osseous marrow edema. T12-L1:Disc space narrowing and disc desiccation with mild bilateral facet hypertrophy. No significan t central canal or neural foraminal stenosis L1-2:There is disc space narrowing with disc desiccation and mild bilateral facet hypertrophy. No roger tral canal or neural foraminal stenosis L2-3:There is disc space narrowing with disc desiccation and mild disc bulge. Mild bilateral facet hy pertrophy. No significant central canal or neural foraminal stenosis. Vacuum disc formation present. L3-4:Mild bilateral facet hypertrophy. There is disc space narrowing with disc desiccation and mild d isc bulge. No significant central canal or neural foraminal stenosis L4-5:There is disc space and with disc desiccation and a small central disc protrusion. Mild bilatera l facet hypertrophy with no significant central canal or neural foraminal stenosis L5-S1:Intervertebral disc height and signal intensity appears within normal limits with no significan t central canal or neural foraminal stenosis Image retroperitoneal structures demonstrateno acute findings. Postcontrast imaging demonstrates no a bnormal enhancement involving the intervertebral discs, the imaged osseous structures, or the contents of the thecal sac. IMPRESSION: Degenerative disc disease. No MR evidence of discitis/osteomyelitis.
--- NOTE | 2020-01-29 16:34 | MRI ---
Cervical spine MRI with and without contrast: 01/29/2020 HISTORY: Bacteremia, assess for discitis TECHNIQUE: Multiplanar multisequence MR imaging of the cervical spine obtained with and without contr ast FINDINGS: The sagittal STIR imaging demonstrates no focal area of osseous marrow edema. There is no significant anterolisthesis or retrolisthesis within the cervical spine. C2-3: Mild left-sided facet hypertrophy. No significant central canal or neural foraminal stenosis. M inimal disc bulge. C3-4: No significant central canal or neural foraminal stenosis. Minimal disc bulge. C4-5: There is disc space narrowing with disc desiccation and mild disc bulge partially effacing the ventral thecal sac and causing mild central canal stenosis. No significant neural foraminal stenosis. C5-6: There is disc space narrowing with disc desiccation, degenerative endplate change, and mild dis c bulge partially effacing the ventral thecal sac with mild central canal stenosis. Mild bilateral neural foraminal stenosis on the basis of facet and uncovertebral osteophyte formation, right greater than left. C6-7: There is disc space narrowing and disc desiccation with mild disc bulge and a small central dis c protrusion effacing the ventral thecal sac with mild central canal stenosis. No significant neural foraminal stenosis. C7-T1: No central canal or neural foraminal stenosis. No focal area of abnormal signal intensity identified within the cervical cord. Postcontrast imaging demonstrates no abnormal enhancement involving the contents of the thecal sac, the intervertebral discs, or the imaged osseous structures. IMPRESSION: No MR evidence for discitis/osteomyelitis within the cervical spine.
--- NOTE | 2020-01-29 17:42 | PRG ---
DATE OF SERVICE: 01/29/2020 SUBJECTIVE: Mr. Kathleen is feeling a little better. [id number] pain in the right groin at the previous catheterization site. No shortness of breath or cough. No back pain, maybe mild chronic back pain. No diarrhea. OBJECTIVE: VITAL SIGNS: T-max 99.6, blood pressure 170/70, heart rate 85, respiratory rate 18, and O2 saturation 95%. GENERAL: Does not appear to be in distress. LUNGS: Clear. CARDIOVASCULAR: S1 and S2 regular rate. ABDOMEN: Soft and not distended. Right groin with the area of hematoma with tenderness. LABORATORY DATA: White cell count 8.4, hemoglobin 12.7, platelets 203, creatinine 0.78. Repeat blood cultures collected on January 27, thus far no growth. Urine culture no growth [address] pelvis showed superficial right groin hematoma measuring up to 3 cm. The common femoral artery is narrowed with 50% narrowing at the area of recent access. No contrast extravasation. There was evidence of luminal irregularity of the right common femoral artery. Echocardiogram, EF 40% to 45%, moderate mitral regurgitation present. No vegetations noted and the MRI did not show any evidence of diskitis or osteomyelitis. ASSESSMENT AND DISCUSSION: Type 2 diabetes, coronary artery disease, ischemic cardiomyopathy with diminished ejection fraction, triple-vessel disease, scheduled for bypass and then Staph aureus bacteremia identified on January 22. This is most likely hospital acquired event probably due to infected hematoma. A pseudoaneurysm of the femoral artery is not ruled out, endarteritis is not ruled out in view of the findings on CT. If the repeat blood cultures are negative, I think it would be permissible to proceed with the bypass graft surgery, as long as we continue treating him for a long time with antimicrobial therapy assuming the worse probably at least four weeks. Job ID: [id number]
[2020-01-29] MEDS: Atorvastatin Calcium 40 MG TAB PO SCH (20:40)
[2020-01-30] MEDS: Oxacillin 2 GM in Sodium Chloride 0.9% 100 ML IVPB SCH ×6 (00:59→21:01)
[2020-01-30] MEDS: Mupirocin 2% Ointment 22 GM Tube TOP SCH ×3 (08:43→22:32)
[2020-01-30] MEDS: Enoxaparin Sodium 40 MG/0.4 ML SYRINGE SC SCH (08:43)
[2020-01-30] MEDS: Carvedilol 3.125 MG TAB PO SCH ×2 (08:43→21:00)
[2020-01-30] MEDS: Aspirin 81 mg Enteric Coated Tablet PO SCH (08:43)
[2020-01-30] MEDS: Gabapentin 300 MG CAP PO SCH ×3 (08:43→21:00)
[2020-01-30] MEDS: HumaLOG 300 UNITS/3 ML VIAL SC PRN ×2 (12:03→18:13)
[2020-01-30] MEDS ORDERED: Non-Formulary Item 1 EACH (Insulin Degludec [Tresiba Flextouch U-100] 100 UNIT/ML Insuln. SQ SCH (13:45)
--- NOTE | 2020-01-30 13:48 | PDOC.HOSPP ---
- Subjective Encounter Date: 01/30/20 Encounter Time: 12:30 Subjective: pt up in bed no complains - Objective Vital Signs & Weight: Vital Signs (12 hours) Temp Pulse Resp BP BP Pulse Ox 01/30/20 11:50 98.4 F 85 17 150/71 H 96 01/30/20 09:00 98.0 F 76 18 144/77 H 97 01/30/20 05:00 98.6 F 74 18 124/70 98 Weight Admit Weight 189 lb 1.6 oz Weight 193 lb 6.4 oz I&O: 01/29/20 01/30/20 01/31/20 06:59 06:59 06:59 Intake Total 1510 1000 Output Total 800 600 Balance 710 400 Result Diagrams: 01/29/20 04:08 01/29/20 04:08 Additional Labs: Accuchecks 01/30/20 01/30/20 01/29/20 11:06 06:14 20:20 POC Glucose 214 H 178 H 245 H 01/29/20 17:08 POC Glucose 257 H Hospitalist ROS - Review of Systems Cardiovascular: denies: chest pain, palpitations, orthopnea, paroxysmal noc. dyspnea, edema, light headedness, other Gastrointestinal: denies: nausea, vomiting, abdominal pain, diarrhea, constipa tion, melena, hematochezia, other Genitourinary: denies: dysuria, frequency, incontinence, hematuria, retention, other - Medication Medications: Active Medications Generic Name Dose Route Start Last Admin Trade Name Freq PRN Reason Stop Dose Admin Acetaminophen 650 mg 01/28/20 11:26 01/28/20 20:57 Acetaminophen 325 Mg Tab PO 650 mg Q4H PRN Administration Headache/Fever/Mild Pain (1-3) Aspirin 81 mg 01/29/20 09:00 01/30/20 08:43 Aspirin 81 Mg Enteric Coated Tablet PO 81 mg DAILY ARI Administration Atorvastatin Calcium 40 mg 01/28/20 21:00 01/29/20 20:40 Atorvastatin Calcium 40 Mg Tab PO 40 mg HS ARI Administration Carvedilol 3.125 mg 01/28/20 21:00 01/30/20 08:43 Carvedilol 3.125 Mg Tab PO 3.125 mg BID ARI Administration Enoxaparin Sodium 40 mg 01/29/20 09:00 01/30/20 08:43 Enoxaparin Sodium 40 Mg/0.4 Ml Syringe SC 40 mg 0900 ARI Administration Gabapentin 300 mg 01/28/20 15:00 01/30/20 08:43 Gabapentin 300 Mg Cap PO 300 mg TID ARI Administration Oxacillin Sodium 2 gm/ Sodium 100 mls @ 200 mls/hr 01/28/20 21:00 01/30/20 12:03 Chloride IVPB 100 mls Q4HR ARI Administration Insulin Human Lispro 0 units 01/28/20 11:26 01/30/20 12:03 Humalog 300 Units/3 Ml Vial SC 4 unit .MODERATE SLIDING SC PRN Administration Moderate Correctional Scale Insulin Human Lispro 0 units 01/28/20 11:26 01/29/20 21:34 Humalog 300 Units/3 Ml Vial SC 3 unit/kg .BEDTIME SLIDING SC PRN Administration Bedtime Correctional Scale Mupirocin 0 gm 01/28/20 15:00 01/30/20 08:43 Mupirocin 2% Ointment 22 Gm Tube TOP 1 applic TID ARI Administration Sodium Chloride 10 ml 01/28/20 21:00 01/30/20 08:44 Flush - Normal Saline 10 Ml Syringe IVF Not Given Q12HR ARI - Exam Neck: negative: supple, symmetric, no JVD, no thyromegaly, no lymphadenopathy, no carotid bruit, JVD Heart: negative: RRR, no murmur, no gallops, no rubs, normal peripheral pulses, irregular, diminshed peripheral pulses, murmur present, II/IV, III/IV Respiratory: negative: CTAB, no wheezes, no rales, no ronchi, normal chest expansion, no tachypnea, normal percussion, rales, rhonchi, tachypneic, wheezes Hosp A/P (1) CAD (coronary artery disease) Code(s): I25.10 - ATHSCL HEART DISEASE OF [place] CORONARY ARTERY W/O ANG PCTRS Status: Acute Qualifiers: Coronary Disease-Associated Artery/Lesion type: [place] artery [place] vs. transplanted heart: [place] heart Associated angina: with stable angina Qualified Code(s): I25.118 - Atherosclerotic heart disease of [place] coronary artery with other forms of angina pectoris (2) MSSA bacteremia Code(s): R78.81 - BACTEREMIA; B95.61 - METHICILLIN SUSCEP STAPH INFCT CAUSING DIS CLASSD ELSWHR Status: Acute (3) Anemia Code(s): D64.9 - ANEMIA, UNSPECIFIED Status: Acute (4) Diabetes type 2, controlled Code(s): E11.9 - TYPE 2 DIABETES MELLITUS WITHOUT COMPLICATIONS Status: Chronic Qualifiers: Diabetes mellitus long term acute care registered nurse insulin use: with long term acute care registered nurse use (5) Hypertension Code(s): I10 - ESSENTIAL (PRIMARY) HYPERTENSION Status: Chronic Qualifiers: - Plan MRI spine negative for infection pelvic CT, echo show no focus of infection continue home meds as above repeat blood cx negative so far. will restart pt's insulin
--- NOTE | 2020-01-30 15:34 | PRG ---
DATE OF SERVICE: 01/30/2020 SUBJECTIVE: Pain in the right groin is diminishing. No chest pain. No dyspnea. No abdominal pain or diarrhea. OBJECTIVE: VITAL SIGNS: He is afebrile. LUNGS: Clear. HEART: S1 and S2, regular rate. ABDOMEN: Soft. Right groin area, swelling with tenderness. Induration is still there, but no worsening. LABORATORY DATA: White cell count 8.4, hemoglobin 12.7, and platelets 203. Creatinine 0.78. ASSESSMENT AND DISCUSSION: Type 2 diabetes, coronary artery disease, ischemic cardiomyopathy with diminished ejection fraction, triple-vessel disease, scheduled for bypass, and then Staphylococcus aureus bacteremia probably from the right groin process due to the close association with femoral artery. There was a concern with involvement of the femoral artery, particularly since the bacteremia was detected in 2 different samples 30 minutes apart. If the repeat blood cultures are negative, then I think it would be reasonable to proceed with procedure on the , which would be . Job ID: [id number]
[2020-01-30] MEDS: Atorvastatin Calcium 40 MG TAB PO SCH (21:00)
[2020-01-30] MEDS: Insulin Glargine 8 UNITS in Pre-Filled Syringe 1 EACH SC SCH (21:02)
[2020-01-31] MEDS: Oxacillin 2 GM in Sodium Chloride 0.9% 100 ML IVPB SCH ×6 (01:28→21:30)
[2020-01-31 04:23] LABS: #Basophils 0.1 thou/uL (0.0-0.2); #Eosinphils 0.3 thou/uL (0.0-0.7); #Lymphocytes 2.3 thou/uL (1.20-3.40); #Monocytes 0.9 thou/uL (0.11-0.59); #Neutrophils 7.4 thou/uL (1.40-6.50); %Basophils 0.6 % (0.0-1.0); %Lymphocytes 20.9 % (21.0-51.0); %Neutrophils 67.5 % (42.0-75.0); Hemoglobin 11.8 g/dL (14.0-18.0); Mean Corpuscular Hemoglobin 29.7 pg (27.0-31.0); Mean Corpuscular Volume 87.4 fL (78.0-98.0); Mean Platelet Volume 7.5 fL (7.4-10.4); Platelet Count 274 thou/uL (130-400); RBC Distribution Width 12.3 % (11.5-14.5); Red Blood Cell (RBC) Count 3.97 mill/uL (4.70-6.10); White Blood Cell (WBC) Count 10.9 thou/uL (4.8-10.8)
[2020-01-31 04:44] LABS: Anion Gap 13 mmol/L (10-20); BUN (Urea Nitrogen) 12 mg/dL (8.4-25.7); Calc. Creatinine Clearance 141 mL/min (70-130); Calcium 7.9 mg/dL (7.8-10.44); Carbon Dioxide 24 mmol/L (22-29); Chloride 104 mmol/L (98-107); Estimated GFR-MDRD Greater than 90; Glucose 224 mg/dL (70-105); Potassium 3.6 mmol/L (3.5-5.1); Sodium 137 mmol/L (136-145)
[2020-01-31] MEDS: HumaLOG 300 UNITS/3 ML VIAL SC PRN ×2 (05:38→23:32)
[2020-01-31] MEDS: Aspirin 81 mg Enteric Coated Tablet PO SCH (09:04)
[2020-01-31] MEDS: Gabapentin 300 MG CAP PO SCH ×3 (09:04→21:31)
[2020-01-31] MEDS: Enoxaparin Sodium 40 MG/0.4 ML SYRINGE SC SCH (09:04)
[2020-01-31] MEDS: Carvedilol 3.125 MG TAB PO SCH ×2 (09:04→21:31)
[2020-01-31] MEDS: Mupirocin 2% Ointment 22 GM Tube TOP SCH ×3 (09:16→23:33)
--- NOTE | 2020-01-31 10:30 | PDOC.HOSPP ---
- Subjective Encounter Date: 01/31/20 Encounter Time: 10:30 Subjective: pt up in bed no complains - Objective Vital Signs & Weight: Vital Signs (12 hours) Temp Pulse Resp BP BP Pulse Ox 01/31/20 07:41 97.7 F 82 16 138/67 98 01/31/20 04:40 97.8 F 91 18 133/79 96 Weight Admit Weight 189 lb 1.6 oz Weight 193 lb 7 oz I&O: 01/30/20 01/31/20 02/01/20 06:59 06:59 06:59 Intake Total 1000 700 Output Total 600 450 Balance 400 250 Result Diagrams: 01/31/20 04:06 01/31/20 04:06 Additional Labs: Accuchecks 01/31/20 01/30/20 01/30/20 05:26 20:19 17:28 POC Glucose 186 H 245 H 306 H 01/30/20 11:06 POC Glucose 214 H Hospitalist ROS - Review of Systems Cardiovascular: denies: chest pain, palpitations, orthopnea, paroxysmal noc. dyspnea, edema, light headedness, other Gastrointestinal: denies: nausea, vomiting, abdominal pain, diarrhea, constipation, melena, hematochezia, other Genitourinary: denies: dysuria, frequency, incontinence, hematuria, retention, other - Medication Medications: Active Medications Generic Name Dose Route Start Last Admin Trade Name Freq PRN Reason Stop Dose Admin Acetaminophen 650 mg 01/28/20 11:26 01/28/20 20:57 Acetaminophen 325 Mg Tab PO 650 mg Q4H PRN Administration Headache/Fever/Mild Pain (1-3) Aspirin 81 mg 01/29/20 09:00 01/31/20 09:04 Aspirin 81 Mg Enteric Coated Tablet PO 81 mg DAILY ARI Administration Atorvastatin Calcium 40 mg 01/28/20 21:00 01/30/20 21:00 Atorvastatin Calcium 40 Mg Tab PO 40 mg HS ARI Administration Carvedilol 3.125 mg 01/28/20 21:00 01/31/20 09:04 Carvedilol 3.125 Mg Tab PO 3.125 mg BID ARI Administration Enoxaparin Sodium 40 mg 01/29/20 09:00 01/31/20 09:04 Enoxaparin Sodium 40 Mg/0.4 Ml Syringe SC 40 mg 899 ARI Administration Gabapentin 300 mg 01/28/20 15:00 01/31/20 09:04 Gabapentin 300 Mg Cap PO 300 mg TID ARI Administration Oxacillin Sodium 2 gm/ Sodium 100 mls @ 200 mls/hr 01/28/20 21:00 01/31/20 09:05 Chloride IVPB 100 mls Q4HR ARI Administration Insulin Glargine 8 units/ 0.08 mls @ 0 mls/hr 01/30/20 21:00 01/30/20 21:02 Miscellaneous Medication SC 0.08 mls HS ARI Administration Insulin Human Lispro 0 units 01/28/20 11:26 01/31/20 05:38 Humalog 300 Units/3 Ml Vial SC 2 unit .MODERATE SLIDING SC PRN Administration Moderate Correctional Scale Insulin Human Lispro 0 units 01/28/20 11:26 01/29/20 21:34 Humalog 300 Units/3 Ml Vial SC 3 unit/kg .BEDTIME SLIDING SC PRN Administration Bedtime Correctional Scale Mupirocin 0 gm 01/28/20 15:00 01/31/20 09:16 Mupirocin 2% Ointment 22 Gm Tube TOP 1 applic TID ARI Administration Sodium Chloride 10 ml 01/28/20 21:00 01/30/20 21:01 Flush - Normal Saline 10 Ml Syringe IVF 10 ml Q12HR ARI Administration - Exam Heart: negative: RRR, no murmur, no gallops, no rubs, normal peripheral pulses, irregular, diminshed peripheral pulses, murmur present, II/IV, III/IV Respiratory: negative: CTAB, no wheezes, no rales, no ronchi, normal chest expansion, no tachypnea, normal percussion, rales, rhonchi, tachypneic, wheezes Gastrointestinal: negative: soft, non-tender, non-distended, normal bowel sounds, no palpable masses, no hepatomegaly, no splenomegaly, no bruit, no guarding, no rigidity, tender to palpation, distended, diminished bowl sounds, voluntary guarding Hosp A/P (1) CAD (coronary artery disease) Code(s): I25.10 - ATHSCL HEART DISEASE OF [place] CORONARY ARTERY W/O ANG PCTRS Status: Acute Qualifiers: Coronary Disease-Associated Artery/Lesion type: [place] artery [place] vs. transplanted heart: [place] heart Associated angina: with stable angina Qualified Code(s): I25.118 - Atherosclerotic heart disease of [place] coronary artery with other forms of angina pectoris (2) MSSA bacteremia Code(s): R78.81 - BACTEREMIA; B95.61 - METHICILLIN SUSCEP STAPH INFCT CAUSING DIS CLASSD ELSWHR Status: Acute (3) Anemia Code(s): D64.9 - ANEMIA, UNSPECIFIED Status: Acute (4) Diabetes type 2, controlled Code(s): E11.9 - TYPE 2 DIABETES MELLITUS WITHOUT COMPLICATIONS Status: Chronic Qualifiers: Diabetes mellitus group home insulin use: with group home use (5) Hypertension Code(s): I10 - ESSENTIAL (PRIMARY) HYPERTENSION Status: Chronic Qualifiers: - Plan MRI spine negative for infection pelvic CT, echo show no focus of infection continue home meds as above repeat blood cx negative so far. will restart pt's insulin 01/30 pt cleared for surgery per ID. Blood cx no growth. will start pt on humalog tid-ac for better blood sugar control.
[2020-01-31] MEDS: HumaLOG 300 UNITS/3 ML VIAL SC SCH ×2 (12:34→16:28)
[2020-01-31] MEDS ORDERED: Communication Order-Pharmacy FS SCH (16:56)
[2020-01-31] MEDS: Insulin Glargine 8 UNITS in Pre-Filled Syringe 1 EACH SC SCH (21:30)
[2020-01-31] MEDS: Atorvastatin Calcium 40 MG TAB PO SCH (21:31)
[2020-02-01] MEDS: Oxacillin 2 GM in Sodium Chloride 0.9% 100 ML IVPB SCH ×6 (01:31→21:47)
[2020-02-01] MEDS: HumaLOG 300 UNITS/3 ML VIAL SC PRN (06:31)
[2020-02-01] MEDS: Enoxaparin Sodium 40 MG/0.4 ML SYRINGE SC SCH (08:33)
[2020-02-01] MEDS: Gabapentin 300 MG CAP PO SCH ×3 (08:34→21:48)
[2020-02-01] MEDS: Carvedilol 3.125 MG TAB PO SCH ×2 (08:34→21:48)
[2020-02-01] MEDS: Mupirocin 2% Ointment 22 GM Tube TOP SCH ×3 (08:34→21:47)
[2020-02-01] MEDS: Aspirin 81 mg Enteric Coated Tablet PO SCH (08:34)
[2020-02-01] MEDS: HumaLOG 300 UNITS/3 ML VIAL SC SCH ×4 (08:35→16:43)
[2020-02-01] MEDS: Insulin Glargine 10 UNITS in Pre-Filled Syringe 1 EACH SC SCH (09:33)
--- NOTE | 2020-02-01 10:14 | PDOC.HOSPP ---
- Subjective Encounter Date: 02/01/20 Encounter Time: 10:30 Subjective: pt up in bed no complains - Objective Vital Signs & Weight: Vital Signs (12 hours) Temp Pulse Resp BP Pulse Ox 02/01/20 09:00 99.3 F 93 14 167/70 H 98 02/01/20 08:00 98 02/01/20 04:56 98.6 F 98 20 161/85 H 96 Weight Admit Weight 189 lb 1.6 oz Weight 193 lb 7 oz I&O: 01/31/20 02/01/20 02/02/20 06:59 06:59 06:59 Intake Total 700 1800 Output Total 450 150 Balance 250 1650 Result Diagrams: 01/31/20 04:06 01/31/20 04:06 Additional Labs: Accuchecks 02/01/20 01/31/20 01/31/20 05:41 20:14 16:31 POC Glucose 210 H 312 H 234 H 01/31/20 10:55 POC Glucose 262 H Hospitalist ROS - Review of Systems Respiratory: denies: cough, dry, shortness of breath, hemoptysis, SOB with excertion, pleuritic pain, sputum, wheezing, other Cardiovascular: denies: chest pain, palpitations, orthopnea, paroxysmal noc. dyspnea, edema, light headedness, other Gastrointestinal: denies: nausea, vomiting, abdominal pain, diarrhea, constipation, melena, hematochezia, other - Medication Medications: Active Medications Generic Name Dose Route Start Last Admin Trade Name Freq PRN Reason Stop Dose Admin Acetaminophen 650 mg 01/28/20 11:26 01/28/20 20:57 Acetaminophen 325 Mg Tab PO 02/02/20 08:59 650 mg Q4H PRN Administration Headache/Fever/Mild Pain (1-3) Aspirin 81 mg 01/29/20 09:00 02/01/20 08:34 Aspirin 81 Mg Enteric Coated Tablet PO 02/02/20 08:59 81 mg DAILY ARI Administration Atorvastatin Calcium 40 mg 01/28/20 21:00 01/31/20 21:31 Atorvastatin Calcium 40 Mg Tab PO 02/02/20 08:59 40 mg HS ARI Administration Carvedilol 3.125 mg 01/28/20 21:00 02/01/20 08:34 Carvedilol 3.125 Mg Tab PO 3.125 mg BID ARI Administration Enoxaparin Sodium 40 mg 01/29/20 09:00 02/01/20 08:33 Enoxaparin Sodium 40 Mg/0.4 Ml Syringe SC 02/02/20 08:59 40 mg 0900 ARI Administration Gabapentin 300 mg 01/28/20 15:00 02/01/20 08:34 Gabapentin 300 Mg Cap PO 02/02/20 08:59 300 mg TID ARI Administration Oxacillin Sodium 2 gm/ Sodium 100 mls @ 200 mls/hr 01/28/20 21:00 02/01/20 08:34 Chloride IVPB 02/02/20 08:59 100 mls Q4HR ARI Administration Insulin Glargine 8 units/ 0.08 mls @ 0 mls/hr 01/30/20 21:00 01/31/20 21:30 Miscellaneous Medication SC 02/02/20 08:59 0.08 mls HS ARI Administration Insulin Glargine 10 units/ 0.1 mls @ 0 mls/hr 02/01/20 09:00 02/01/20 09:33 Miscellaneous Medication SC 0.1 mls QAM ARI Administration Insulin Human Lispro 0 units 01/28/20 11:26 02/01/20 06:31 Humalog 300 Units/3 Ml Vial SC 02/02/20 08:59 4 unit .MODERATE SLIDING SC PRN Administration Moderate Correctional Scale Insulin Human Lispro 0 units 01/28/20 11:26 01/31/20 23:32 Humalog 300 Units/3 Ml Vial SC 02/02/20 08:59 4 unit/kg .BEDTIME SLIDING SC PRN Administration Bedtime Correctional Scale Insulin Human Lispro 8 units 02/01/20 08:00 02/01/20 08:35 Humalog 300 Units/3 Ml Vial SC 02/02/20 08:01 8 unit TID-WM ARI Administration Mupirocin 0 gm 01/28/20 15:00 02/01/20 08:34 Mupirocin 2% Ointment 22 Gm Tube TOP 02/02/20 08:59 1 applic TID ARI Administration Sodium Chloride 10 ml 01/28/20 21:00 02/01/20 08:36 Flush - Normal Saline 10 Ml Syringe IVF 02/02/20 08:59 10 ml Q12HR ARI Administration - Exam Heart: irregular Respiratory: negative: CTAB, no wheezes, no rales, no ronchi, normal chest expansion, no tachypnea, normal percussion, rales, rhonchi, tachypneic, wheezes Gastrointestinal: negative: soft, non-tender, non-distended, normal bowel soun ds, no palpable masses, no hepatomegaly, no splenomegaly, no bruit, no guarding, no rigidity, tender to palpation, distended, diminished bowl sounds, voluntary guarding Extremities: 1+ LE edema Hosp A/P (1) CAD (coronary artery disease) Code(s): I25.10 - ATHSCL HEART DISEASE OF [place] CORONARY ARTERY W/O ANG PCTRS Status: Acute Qualifiers: Coronary Disease-Associated Artery/Lesion type: [place] artery [place] vs. transplanted heart: [place] heart Associated angina: with stable angina Qualified Code(s): I25.118 - Atherosclerotic heart disease of [place] coronary artery with other forms of angina pectoris (2) MSSA bacteremia Code(s): R78.81 - BACTEREMIA; B95.61 - METHICILLIN SUSCEP STAPH INFCT CAUSING DIS CLASSD ELSWHR Status: Acute (3) Anemia Code(s): D64.9 - ANEMIA, UNSPECIFIED Status: Acute (4) Diabetes type 2, controlled Code(s): E11.9 - TYPE 2 DIABETES MELLITUS WITHOUT COMPLICATIONS Status: Chronic Qualifiers: Diabetes mellitus half-way insulin use: with terminal makeup operator use (5) Hypertension Code(s): I10 - ESSENTIAL (PRIMARY) HYPERTENSION Status: Chronic Qualifiers: - Plan MRI spine negative for infection pelvic CT, echo show no focus of infection continue home meds as above repeat blood cx negative so far. will restart pt's insulin 01/30 pt cleared for surgery per ID. Blood cx no growth. will start pt on humalog tid-ac for better blood sugar control. 01/31 will keep titrating his insulin up. pt to go for CABG in am.
[2020-02-01] MEDS: Acetaminophen 325 MG TAB PO PRN (16:43)
[2020-02-01] MEDS ORDERED: traMADol HCl 50 MG TAB PO PRN (17:15)
--- NOTE | 2020-02-01 20:54 | ULT ---
LIMITED SOFT TISSUE ULTRASOUND WITH DOPPLER: 02/01/20 PROVIDED CLINICAL HISTORY: Bleeding, evaluate for pseudoaneurysm. FINDINGS: There are circumscribed hypoechoic collections within the right groin region, not overlying the commo n femoral artery and demonstrating no internal blood flow. Nonspecific prominent lymph node is seen. The interrogated right common femoral artery and common femoral vein appear normal. IMPRESSION: Nonspecific hypoechoic collections within the right inguinal soft tissues likely reflecting hematoma. There is no evidence for pseudoaneurysm. POS: LATONYA
[2020-02-01] MEDS: Atorvastatin Calcium 40 MG TAB PO SCH (21:48)
[2020-02-01] MEDS: Insulin Glargine 8 UNITS in Pre-Filled Syringe 1 EACH SC SCH (21:48)
[2020-02-02] MEDS: Oxacillin 2 GM in Sodium Chloride 0.9% 100 ML IVPB SCH ×4 (01:02→21:23)
[2020-02-02] MEDS: Acetaminophen 325 MG TAB PO PRN (02:04)
[2020-02-02] MEDS: Carvedilol 3.125 MG TAB PO SCH (05:11)
[2020-02-02] MEDS ORDERED: Albumin 5% 500 ML ONE (06:30)
[2020-02-02] MEDS ORDERED: Fentanyl 100 MCG/2 ML VIAL ONE (06:35)
[2020-02-02] MEDS ORDERED: Midazolam HCl 2 mg/2 ml Vial ONE (06:35)
[2020-02-02] MEDS ORDERED: Midazolam HCl 5 mg/5 ml Vial ONE (06:36)
[2020-02-02] MEDS ORDERED: Dexmedetomidine 200 MCG/2 ML VIAL ONE (06:36)
[2020-02-02] MEDS ORDERED: Vecuronium 10 MG VIAL ONE ×3 (06:36→14:14)
[2020-02-02] MEDS ORDERED: Heparin 10,000 UNITS/1 ML VIAL 30,000 UNITS in Sodium Chloride 0.9% 1,000 ML FS SCH (07:00)
[2020-02-02] MEDS: HumaLOG 300 UNITS/3 ML VIAL SC SCH (08:00)
[2020-02-02] MEDS: Insulin Glargine 10 UNITS in Pre-Filled Syringe 1 EACH SC SCH (09:00)
[2020-02-02] MEDS ORDERED: PHENYLEPHRINE-NS 100 MCG/ML 10 ML SYRINGE ONE ×3 (10:20→14:14)
[2020-02-02] MEDS ORDERED: Milrinone 10 MG/10 ML VIAL ONE (11:00)
[2020-02-02] MEDS ORDERED: Acetaminophen 325 MG TAB PO PRN (12:53)
[2020-02-02] MEDS ORDERED: Guaifenesin DM 100-10/5 ML UDCUP PO PRN (12:53)
[2020-02-02] MEDS ORDERED: Hetastarch 6% 500 ML 500 ML IVPB PRN (12:53)
[2020-02-02] MEDS ORDERED: DOPamine 400 MG/D5W 250 ML 250 ML IVPB PRN (12:53)
[2020-02-02] MEDS ORDERED: Post-Op Insulin Drip Protocol IVPB ONE (12:53)
[2020-02-02] MEDS ORDERED: Nitroglycerin 50 MG/250 ML BOT 250 ML IVPB PRN (12:53)
[2020-02-02] MEDS ORDERED: Morphine 2 MG/ML VIAL SLOW IVP PRN (12:53)
[2020-02-02] MEDS ORDERED: hydrALAZINE 20 MG/ML VIAL SLOW IVP PRN (12:53)
[2020-02-02] MEDS ORDERED: niCARdipine 25 MG in Sodium Chloride 0.9% 250 ML 250 ML IVPB PRN (12:53)
[2020-02-02] MEDS ORDERED: Bisacodyl 5 MG TAB PO PRN (12:53)
[2020-02-02] MEDS ORDERED: Mag-Al 1200 mg/1200 mg/30 ML UDCUP PO PRN (12:53)
[2020-02-02] MEDS ORDERED: Ondansetron PF 4 MG/2 ML Vial IVP PRN (12:53)
[2020-02-02] MEDS ORDERED: Fentanyl 100 MCG/2 ML VIAL SLOW IVP PRN ×2 (12:53)
[2020-02-02] MEDS ORDERED: Bisacodyl 10 MG SUPP PR PRN (12:53)
[2020-02-02] MEDS ORDERED: Norepinephrine 8 MG/0.9% NS 250 ML IVPB PRN (12:53)
[2020-02-02] MEDS ORDERED: Magnesium 2 GM/50 ML 2 GM in Premix Bag 1 BAG IVPB SCH (13:00)
[2020-02-02] MEDS ORDERED: HUMULIN R 100 UNITS in Sodium Chloride 0.9% 100 ML IVPB SCH (13:15)
[2020-02-02] MEDS ORDERED: Dextrose 50% Abboject 50 ML SYRINGE SLOW IVP PRN (13:15)
[2020-02-02] MEDS ORDERED: Dextrose 5% in Water 1,000 ML IV PRN (13:15)
[2020-02-02 13:27] LABS: Hemoglobin 10.1 g/dL (14.0-18.0); Mean Corpuscular HGB CONC 32.8 g/dL (32.0-36.0); Mean Corpuscular Hemoglobin 28.8 pg (27.0-31.0); Mean Corpuscular Volume 87.8 fL (78.0-98.0); Mean Platelet Volume 7.5 fL (7.4-10.4); Platelet Count 243 thou/uL (130-400); RBC Distribution Width 12.4 % (11.5-14.5); Red Blood Cell (RBC) Count 3.51 mill/uL (4.70-6.10)
[2020-02-02 13:31] LABS: INR-International Normal Ratio 1.3; Prothrombin Time 16.1 sec (12.0-14.7)
--- NOTE | 2020-02-02 13:31 | RAD ---
EXAM: XR Chest 1 View Portable PROVIDED CLINICAL HISTORY: Post open heart COMPARISON: 01/28/2020 FINDINGS: Cardiac and mediastinal silhouette is unchanged in appearance. Median sternotomy changes are redemons trated. Right subclavian central line is noted, tip of which terminates in the expected location of cavoatrial junction. Mediastinal drain is likely present. No focal consolidation, pleural fluid or pn eumothorax apparent. IMPRESSION: Interval postoperative change as above.
[2020-02-02 13:32] LABS: PTT 35.8 sec (22.9-36.1)
[2020-02-02] MEDS: Sodium Chloride 0.9% 1,000 ML IV SCH (13:35)
[2020-02-02] MEDS: Insulin Regular 300 UNITS/3 ML VIAL SC PRN ×2 (13:35→17:38)
[2020-02-02 13:45] LABS: Band 30 % (5-11); Eosinophils 1 % (0-10); Lymphocytes 2 % (21-51); MDiff Complete? YES; Metamyelocyte 1 % (0-0); Monocytes 7 % (0-10); Neutrophil 57 % (42-75); Platelet Morphology Comment Appears Adequate; Polychromasia SLIGHT = 2-3 cells (100X) (0-2/hpf); Reactive Lymphocytes 2 % (0-10)
[2020-02-02 13:46] LABS: Anion Gap 16 mmol/L (10-20); BUN (Urea Nitrogen) 15 mg/dL (8.4-25.7); Calc. Creatinine Clearance 147 mL/min (70-130); Calcium 7.7 mg/dL (7.8-10.44); Carbon Dioxide 21 mmol/L (22-29); Chloride 107 mmol/L (98-107); Estimated GFR-MDRD Greater than 90; Glucose 151 mg/dL (70-105); Sodium 140 mmol/L (136-145)
[2020-02-02] MEDS ORDERED: Potassium Chloride 60 MEQ/30 ML VIAL ONE (14:14)
[2020-02-02] MEDS ORDERED: Lidocaine 2% PF 5 ML VIAL ONE (14:14)
[2020-02-02] MEDS ORDERED: Sodium Bicarb 50 MEQ/50 ML Abboject 8.4% SYRINGE ONE (14:14)
[2020-02-02] MEDS ORDERED: Lidocaine 1% PF 5 ML VIAL ONE ×2 (14:14)
[2020-02-02] MEDS ORDERED: Calcium Chloride 1 GM/10 ML Abboject SYRINGE ONE (14:14)
[2020-02-02] MEDS ORDERED: Aminocaproic Acid 5 GM/20 ML VIAL ONE (14:14)
[2020-02-02] MEDS ORDERED: Esmolol 100 MG/10 ML VIAL ONE (14:14)
[2020-02-02] MEDS ORDERED: Nitroglycerin 50 MG/250 ML BOT ONE (14:14)
[2020-02-02] MEDS ORDERED: Protamine Sulfate 250 MG/25 ML VIAL ONE (14:14)
[2020-02-02] MEDS ORDERED: EPHEDRINE 25 MG/5 ML SYRINGE ONE (14:14)
[2020-02-02] MEDS ORDERED: Cardioplegic Soln 1,000 ML BAG ONE (14:14)
[2020-02-02] MEDS ORDERED: Heparin 30,000 units/30 ml VIAL ONE (14:14)
[2020-02-02] MEDS ORDERED: Thrombin 5000 UNITS/5 ML VIAL ONE (14:14)
[2020-02-02] MEDS ORDERED: Ketorolac Tromethamine 30 MG/ML VIAL ONE (14:14)
[2020-02-02] MEDS ORDERED: Magnesium Sulfate 1 GM/2 ML VIAL ONE (14:14)
[2020-02-02] MEDS ORDERED: Papaverine 60 MG/2 ML VIAL ONE (14:14)
[2020-02-02] MEDS ORDERED: Ondansetron PF 4 MG/2 ML Vial ONE (14:14)
--- NOTE | 2020-02-02 14:47 | PRG ---
DATE OF SERVICE: 02/02/2020 SUBJECTIVE: The patient had a bypass graft surgery. Dr. Wu also I and D'd the right groin area of hematoma and the operative report is yet pending, so we will review that when it is available. OBJECTIVE: VITAL SIGNS: Temperature is normal, BP 130/70, heart rate 94, respiratory rate 20, O2 saturation 92% room air nasal cannula O2. LUNGS: Actually now lungs are symmetric air entry. CHEST: Midline dressing in the chest area. ABDOMEN: Soft. : Dressing in the right groin area. No photos are noted. We did not remove the dressing. He is voiding in the urinal. EXTREMITIES: He is able to move extremities. LABORATORY DATA: White cell count 20,000, hemoglobin 10, and platelets 243, 30% bands. Chemistry with a creatinine of 0.68. Repeat blood cultures negative January 27. No growth in 5 days. ASSESSMENT AND DISCUSSION: Type 2 diabetes, coronary artery disease, ischemic cardiomyopathy with diminished ejection fraction, two vessel disease, Staph aureus bacteremia probably from groin lesion, bypass graft surgery, and then our groin I and D, awaiting on the operative report. Continue oxacillin and eventual transition to cefazolin. Continue treatment for at least 4 weeks probably longer. Job ID: [id number]
[2020-02-02] MEDS: Potassium Chloride 20 MEQ/100 ML PREMIX BAG IVPB PRN (15:04)
[2020-02-02] MEDS: CEFAZOLIN 2 GM in Premix Bag 1 BAG IVPB SCH ×2 (15:05→23:04)
--- NOTE | 2020-02-02 17:06 | PDOC.HOSPP ---
- Subjective Encounter Date: 02/02/20 Encounter Time: 13:00 Subjective: pt up in bed no complains - Objective Vital Signs & Weight: Vital Signs (12 hours) Temp Pulse Resp BP Pulse Ox 02/02/20 13:45 96 02/02/20 13:13 97.6 F 78 26 H 124/57 L 99 Weight Admit Weight 189 lb 1.6 oz Weight 193 lb 7 oz Most Recent Monitor Data Heart Rate from ECG 73 NIBP 103/62 NIBP BP-Mean 75 Respiration from ECG 14 SpO2 99 I&O: 02/01/20 02/02/20 02/03/20 06:59 06:59 06:59 Intake Total 1800 840 Output Total 150 Balance 1650 840 Result Diagrams: 02/02/20 13:15 02/02/20 13:15 Additional Labs: Accuchecks 02/02/20 02/02/20 02/02/20 13:21 12:05 08:15 POC Glucose 146 H 135 H 109 H 02/02/20 02/01/20 02/01/20 07:24 20:20 10:42 POC Glucose 101 H 78 209 H Hospitalist ROS - Review of Systems Cardiovascular: denies: chest pain, palpitations, orthopnea, paroxysmal noc. dyspnea, edema, light headedness, other Gastrointestinal: denies: nausea, vomiting, abdominal pain, diarrhea, constipation, melena, hematochezia, other - Medication Medications: Active Medications Generic Name Dose Route Start Last Admin Trade Name Freq PRN Reason Stop Dose Admin Albuterol/Ipratropium 3 ml 02/02/20 13:00 02/02/20 15:06 Ipratropium/Albuterol Sulfate 3 Ml Neb NEB Not Given [id number] ARI Sodium Chloride 1,000 mls @ 75 mls/hr 02/02/20 12:53 02/02/20 13:35 Normal Saline 0.9% IV 1,000 mls .[id number] ARI Administration Cefazolin Sodium/Dextrose 2 gm 50 mls @ 100 mls/hr 02/02/20 15:00 02/02/20 15:05 / Device IVPB 02/03/20 07:29 50 mls 0700,1500,2300 ARI Administration Insulin Human Regular 0 units 02/02/20 13:15 02/02/20 13:35 Insulin Regular 300 Units/3 Ml Vial SC 3 unit Q4H PRN Administration POST OP SLIDING SCALE Protocol Potassium Chloride 20 meq 02/02/20 12:53 02/02/20 15:04 Potassium Chloride 20 Meq/100 Ml Premix Bag IVPB 20 meq PRN PRN Administration K level </= 4.0 - Exam Heart: negative: RRR, no murmur, no gallops, no rubs, normal peripheral pulses, irregular, diminshed peripheral pulses, murmur present, II/IV, III/IV Respiratory: negative: CTAB, no wheezes, no rales, no ronchi, normal chest expansion, no tachypnea, normal percussion, rales, rhonchi, tachypneic, wheezes Gastrointestinal: negative: soft, non-tender, non-distended, normal bowel sounds, no palpable masses, no hepatomegaly, no splenomegaly, no bruit, no guarding, no rigidity, tender to palpation, distended, diminished bowl sounds, voluntary guarding Extremities: 1+ LE edema Hosp A/P (1) CAD (coronary artery disease) Code(s): I25.10 - ATHSCL HEART DISEASE OF [place] CORONARY ARTERY W/O ANG PCTRS Status: Acute Qualifiers: Coronary Disease-Associated Artery/Lesion type: [place] artery [place] vs. transplanted heart: [place] heart Associated angina: with stable angina Qualified Code(s): I25.118 - Atherosclerotic heart disease of [place] coronary artery with other forms of angina pectoris (2) MSSA bacteremia Code(s): R78.81 - BACTEREMIA; B95.61 - METHICILLIN SUSCEP STAPH INFCT CAUSING DIS CLASSD ELSWHR Status: Acute (3) Anemia Code(s): D64.9 - ANEMIA, UNSPECIFIED Status: Acute (4) Diabetes type 2, controlled Code(s): E11.9 - TYPE 2 DIABETES MELLITUS WITHOUT COMPLICATIONS Status: Chronic Qualifiers: Diabetes mellitus [place] insulin use: with long term care pharmacist use (5) Hypertension Code(s): I10 - ESSENTIAL (PRIMARY) HYPERTENSION Status: Chronic Qualifiers: - Plan MRI spine negative for infection pelvic CT, echo show no focus of infection continue home meds as above repeat blood cx negative so far. will restart pt's insulin 01/30 pt cleared for surgery per ID. Blood cx no growth. will start pt on humalog tid-ac for better blood sugar control. 01/31 will keep titrating his insulin up. pt to go for CABG in am. 02/01 s/p cabg will check cbc in am.
[2020-02-02] MEDS ORDERED: Oxacillin 2 GM in Sodium Chloride 0.9% 100 ML IVPB SCH (18:00)
[2020-02-02 20:00] LABS: Hemoglobin 9.5 g/dL (14.0-18.0)
[2020-02-02 20:13] LABS: Potassium 4.1 mmol/L (3.5-5.1)
[2020-02-02] MEDS ORDERED: Atorvastatin Calcium 20 MG TAB PO SCH (21:00)
[2020-02-02] MEDS: Famotidine/PF 20 mg/2ml Vial SLOW IVP SCH (21:23)
[2020-02-03] MEDS: Oxacillin 2 GM in Sodium Chloride 0.9% 100 ML IVPB SCH ×6 (01:08→21:26)
[2020-02-03] MEDS: HYDROcodone/Acetaminophen 5/325 mg Tablet PO PRN ×2 (02:34→12:29)
[2020-02-03 04:29] LABS: #Eosinphils 0.1 thou/uL (0.0-0.7); #Lymphocytes 1.3 thou/uL (1.20-3.40); #Monocytes 1.3 thou/uL (0.11-0.59); #Neutrophils 14.1 thou/uL (1.40-6.50); %Basophils 0.3 % (0.0-1.0); %Eosinophils 0.4 % (0.0-10.0); %Lymphocytes 7.6 % (21.0-51.0); %Monocytes 7.7 % (0.0-10.0); Hemoglobin 8.8 g/dL (14.0-18.0); Mean Corpuscular HGB CONC 32.6 g/dL (32.0-36.0); Mean Corpuscular Hemoglobin 28.9 pg (27.0-31.0); Mean Corpuscular Volume 88.5 fL (78.0-98.0); Mean Platelet Volume 7.7 fL (7.4-10.4); Platelet Count 251 thou/uL (130-400); RBC Distribution Width 12.6 % (11.5-14.5); Red Blood Cell (RBC) Count 3.04 mill/uL (4.70-6.10); White Blood Cell (WBC) Count 16.8 thou/uL (4.8-10.8)
[2020-02-03 04:53] LABS: Anion Gap 13 mmol/L (10-20); BUN (Urea Nitrogen) 19 mg/dL (8.4-25.7); Calc. Creatinine Clearance 123 mL/min (70-130); Calcium 7.4 mg/dL (7.8-10.44); Carbon Dioxide 20 mmol/L (22-29); Chloride 109 mmol/L (98-107); Estimated GFR-MDRD Greater than 90; Glucose 131 mg/dL (70-105); Potassium 3.8 mmol/L (3.5-5.1); Sodium 138 mmol/L (136-145)
[2020-02-03] MEDS: Sodium Chloride 0.9% 1,000 ML IV SCH (05:34)
[2020-02-03] MEDS: Potassium Chloride 20 MEQ/100 ML PREMIX BAG IVPB PRN (05:35)
[2020-02-03] MEDS: Insulin Regular 300 UNITS/3 ML VIAL SC PRN ×3 (05:40→17:10)
[2020-02-03] MEDS: CEFAZOLIN 2 GM in Premix Bag 1 BAG IVPB SCH (06:33)
[2020-02-03] MEDS: Polyethylene Glycol 3350 17 GM Packet PO SCH (08:20)
[2020-02-03] MEDS: Famotidine/PF 20 mg/2ml Vial SLOW IVP SCH (08:20)
[2020-02-03] MEDS ORDERED: Aspirin Chewable 81 MG TAB PO SCH (09:00)
[2020-02-03] MEDS ORDERED: Milk Of Magnesia 30 ML UDCUP PO PRN (10:37)
[2020-02-03] MEDS ORDERED: Mineral Oil ENEMA PR PRN (10:37)
[2020-02-03] MEDS ORDERED: diphenhydrAMINE 25 MG CAP PO PRN (10:37)
[2020-02-03] MEDS ORDERED: Zolpidem Tartrate 5 MG TAB PO PRN (10:37)
[2020-02-03] MEDS ORDERED: Bisacodyl 5 MG TAB PO PRN (10:37)
[2020-02-03] MEDS ORDERED: Guaifenesin DM 100-10/5 ML UDCUP PO PRN (10:37)
[2020-02-03] MEDS ORDERED: Bisacodyl 10 MG SUPP PR PRN (10:37)
[2020-02-03] MEDS ORDERED: Nitroglycerin 0.4 MG TAB (25 Tab Bottle) SL PRN (10:37)
[2020-02-03] MEDS ORDERED: Dextrose 5% in Water 1,000 ML IV PRN (10:45)
[2020-02-03] MEDS ORDERED: Dextrose 50% Abboject 50 ML SYRINGE SLOW IVP PRN (10:45)
--- NOTE | 2020-02-03 10:49 | PDOC.HOSPP ---
- Subjective Encounter Date: 02/03/20 Encounter Time: 09:00 Subjective: pt up in chair feels well. - Objective Vital Signs & Weight: Vital Signs (12 hours) Temp Pulse Resp Pulse Ox 02/03/20 09:00 98.9 F 02/03/20 08:00 98 02/03/20 07:23 87 21 H 94 L 02/03/20 04:00 99.5 F 02/03/20 01:20 97 02/03/20 01:19 97 02/03/20 00:00 99 F Weight Admit Weight 193 lb 5.526 oz Weight 194 lb 3.636 oz Most Recent Monitor Data Heart Rate from ECG 90 NIBP 100/60 NIBP BP-Mean 73 Respiration from ECG 24 SpO2 95 I&O: 02/02/20 02/03/20 02/04/20 06:59 06:59 06:59 Intake Total 840 2225.8 Output Total 1680 310 Balance 840 545.8 -310 Result Diagrams: 02/03/20 04:05 02/03/20 04:05 Additional Labs: Accuchecks 02/03/20 02/03/20 02/02/20 09:52 01:01 21:35 POC Glucose 155 H 109 H 116 H 02/02/20 02/02/20 02/02/20 17:10 13:21 12:05 POC Glucose 135 H 146 H 135 H Hospitalist ROS - Review of Systems Respiratory: denies: cough, dry, shortness of breath, hemoptysis, SOB with excertion, pleuritic pain, sputum, wheezing, other Cardiovascular: denies: chest pain, palpitations, orthopnea, paroxysmal noc. dyspnea, edema, light headedness, other Gastrointestinal: denies: nausea, vomiting, abdominal pain, diarrhea, constipation, melena, hematochezia, other - Medication Medications: Active Medications Generic Name Dose Route Start Last Admin Trade Name Freq PRN Reason Stop Dose Admin Hydrocodone Bitart/Acetaminophen 1 tab 02/02/20 12:53 02/03/20 02:34 Hydrocodone/Acetaminophen 5/325 Mg Tablet PO 1 tab Q4H PRN Administration Moderate Pain (4-6) Albuterol/Ipratropium 3 ml 02/02/20 13:00 02/03/20 07:23 Ipratropium/Albuterol Sulfate 3 Ml Neb NEB 3 ml [id number] ARI Administration Atorvastatin Calcium 20 mg 02/02/20 21:00 02/02/20 21:22 Atorvastatin Calcium 20 Mg Tab PO 20 mg HS ARI Administration Fentanyl 25 mcg 02/02/20 12:53 02/02/20 18:36 Fentanyl 100 Mcg/2 Ml Vial SLOW IVP 02/04/20 12:43 25 mcg Q2H PRN Administration Moderate Pain (4-6) Oxacillin Sodium 2 gm/ Sodium 100 mls @ 200 mls/hr 02/02/20 17:00 02/03/20 09:10 Chloride IVPB 100 mls Q4HR ARI Administration Polyethylene Glycol 17 gm 02/03/20 09:00 02/03/20 08:20 Polyethylene Glycol 3350 17 Gm Packet PO 17 gm DAILY ARI Administration Potassium Chloride 20 meq 02/02/20 12:53 02/03/20 05:35 Potassium Chloride 20 Meq/100 Ml Premix Bag IVPB 20 meq PRN PRN Administration K level </= 4.0 - Exam Heart: negative: RRR, no murmur, no gallops, no rubs, normal peripheral pulses, irregular, diminshed peripheral pulses, murmur present, II/IV, III/IV Heart - other findings: mid sternum incision dressed Respiratory: negative: CTAB, no wheezes, no rales, no ronchi, normal chest expansion, no tachypnea, normal percussion, rales, rhonchi, tachypneic, wheezes Gastrointestinal: negative: soft, non-tender, non-distended, normal bowel sounds, no palpable masses, no hepatomegaly, no splenomegaly, no bruit, no guarding, no rigidity, tender to palpation, distended, diminished bowl sounds, voluntary guarding Extremities: 1+ LE edema Extremities - other findings: right groin wound vac Hosp A/P (1) CAD (coronary artery disease) Code(s): I25.10 - ATHSCL HEART DISEASE OF [place] CORONARY ARTERY W/O ANG PCTRS Status: Acute Qualifiers: Coronary Disease-Associated Artery/Lesion type: [place] artery [place] vs. transplanted heart: [place] heart Associated angina: with stable angina Qualified Code(s): I25.118 - Atherosclerotic heart disease of [place] coronary artery with other forms of angina pectoris (2) MSSA bacteremia Code(s): R78.81 - BACTEREMIA; B95.61 - METHICILLIN SUSCEP STAPH INFCT CAUSING DIS CLASSD ELSWHR Status: Acute (3) Anemia Code(s): D64.9 - ANEMIA, UNSPECIFIED Status: Acute (4) Diabetes type 2, controlled Code(s): E11.9 - TYPE 2 DIABETES MELLITUS WITHOUT COMPLICATIONS Status: Chronic Qualifiers: Diabetes mellitus residential insulin use: with emt intermediate use (5) Hypertension Code(s): I10 - ESSENTIAL (PRIMARY) HYPERTENSION Status: Chronic Qualifiers: - Plan MRI spine negative for infection pelvic CT, echo show no focus of infection continue home meds as above repeat blood cx negative so far. will restart pt's insulin 01/30 pt cleared for surgery per ID. Blood cx no growth. will start pt on humalog tid-ac for better blood sugar control. 01/31 will keep titrating his insulin up. pt to go for CABG in am. 02/01 s/p cabg will check cbc in am. 02/02 pt doing well, had i&d of the right groin hematoma and has a wound vac. pt on abx. wbc improved. low hh will monitor. Blood sugars controlled on post of protocol.
--- NOTE | 2020-02-03 10:51 | RAD ---
CHEST 1 VIEW: Date: 02/03/2020 INDICATION: History of open heart surgery. COMPARISON: Prior exam dated 02/02/2020. FINDINGS: Since the comparison examination, there is slightly more hypoventilation of the lungs. There is mild pulmonary vascular prominence and perihilar interstitial opacities. Left-sided thoracostomy tube, rig ht subclavian central venous catheter, and midline sternotomy changes are stable. There is a small le ft pleural effusion. No pneumothorax is evident. IMPRESSION: Slightly worsening pulmonary vascular congestion may reflect volume overload or developing mild CHF. Continued follow-up is recommended. No pneumothorax is seen. POS: BH
--- NOTE | 2020-02-03 20:26 | CON ---
DATE OF CONSULTATION: HISTORY OF PRESENT ILLNESS: The patient is a 59-year-old gentleman who presented with to undergo coronary artery bypass graft surgery. The patient was seen recently and underwent a cardiac catheterization, which found to have severe three-vessel coronary artery disease. He had a diffusely diseased LAD, severely diseased OM, and a small diffusely diseased PDA. The patient following the cardiac catheterization and then developed an infected pseudoaneurysm. The patient was treated with IV antibiotics. He underwent coronary artery bypass surgery yesterday. The patient apparently has also a history of paroxysmal atrial fibrillation. The patient following the surgery reports that he feels weak. He reports discomfort along the sternum. PAST MEDICAL HISTORY: 1. Coronary artery disease. 2. Cardiomyopathy. 3. Diabetes mellitus. 4. Hypertension. 5. Peripheral neuropathy. 6. Paroxysmal atrial fibrillation. PAST SURGICAL HISTORY: None. SOCIAL HISTORY: Former smoker, quit 3 months ago. MEDICATIONS: 1. Lisinopril 2.5 a day. 2. Coreg 3.125 b.i.d. 3. Lipitor 40 at bedtime. 4. Aspirin 81 daily. 5. Gabapentin 300 t.i.d. 6. Lasix 40 daily. 7. Metformin 500 b.i.d. 8. Keflex 500 q.i.d. ALLERGIES: NO KNOWN DRUG ALLERGIES. FAMILY HISTORY: No strong family history of heart disease. REVIEW OF SYSTEMS: 10-point system otherwise unremarkable. No history of fevers or chills. PHYSICAL EXAMINATION: GENERAL: Obese gentleman, in no acute distress. VITAL SIGNS: Blood pressure of 105/59. NECK: No jugular venous distention. LUNGS: Clear to auscultation. HEART: Regular rate and rhythm. Normal S1 and S2. No murmurs. ABDOMEN: Distended. EXTREMITIES: Show trace edema. LABORATORY RESULTS: Sodium 138, potassium 3.8, chloride 109, bicarbonate 20, BUN 19, creatinine 0.81, glucose 131. White blood cell count 16.8, hemoglobin 8.8, hematocrit 26.9, his platelets were 84. EKG normal sinus rhythm with ST abnormality suggestive of lateral ischemia. IMPRESSION: 1. Status post coronary artery bypass surgery. 2. Status post pseudoaneurysm repair. 3. Ischemic cardiomyopathy. 4. Hypertension. 5. Diabetes mellitus. 6. Dyslipidemia. 7. Obesity. PLAN: This gentleman is status post coronary artery bypass graft surgery and repair of a pseudoaneurysm. From a cardiac standpoint with his decreased ejection fraction, he should be on lisinopril and Coreg when his blood pressure can tolerate these medications. The patient should be on a high dose of statin therapy. The patient does have a paroxysmal atrial fibrillation with elevated CHADS score. He may need to be on long-term anticoagulation. We will monitor this patient on telemetry. We will follow this patient with you through his hospitalization. Job ID: [id number] [facility]
[2020-02-03] MEDS: Atorvastatin Calcium 40 MG TAB PO SCH (21:26)
[2020-02-04] MEDS: Oxacillin 2 GM in Sodium Chloride 0.9% 100 ML IVPB SCH ×6 (01:44→20:44)
[2020-02-04] MEDS: Insulin Regular 300 UNITS/3 ML VIAL SC PRN ×3 (06:08→16:47)
--- NOTE | 2020-02-04 08:09 | OP ---
DATE OF PROCEDURE: 02/02/2020 PREOPERATIVE DIAGNOSIS: Coronary artery disease. POSTOPERATIVE DIAGNOSIS: Coronary artery disease. PROCEDURES PERFORMED: 1. Coronary artery bypass graft x3; left internal mammary artery to a 2-mm left anterior descending, saphenous vein to a 1.25-mm diseased obtuse marginal branch and to a 1.25-mm diffusely diseased posterior descending artery. 2. Right groin exploration. 3. Repair of pseudoaneurysm. DESCRIPTION OF PROCEDURE: After adequate anesthesia had been obtained, the patient was prepped and draped. I initially attempted endovascular vein harvest of the left greater saphenous vein; however, it was a vein immediately deep to the subcuticular, and open incisions were made in areas to assist with harvest. After preparation of the vein, a right groin incision was made transversely, entering a large hematoma with no active of bleeding. The area was thoroughly irrigated, and due to the depth of the wound and the lack of any active bleeding, it was elected not to uncover the femoral artery. Following this, after change of gloves and gowns, attention was turned to the median sternotomy where the left internal mammary artery was harvested. The patient heparinized. The mammary divided distally, placed posterior to the thymus gland and an incision made in the pericardium to allow it to access the LAD. Aorta and right atrium were cannulated. Cardiopulmonary bypass was begun. The heart was quite large and ejection fraction appeared to be about 20% on transesophageal echo with some AI. After the aortic cross-clamp had been applied, a liter of cold blood cardioplegia was given through the aortic root and an epicardial maze procedure performed on the pulmonary veins as well as the base of the appendage. The left atrial appendage was then oversewn with a double layer of 4-0 Prolene suture. Three distal anastomoses were then completed, following which the cross-clamp was removed and the partial occluding clamp placed and 2 proximal anastomoses performed with the vein grafts. They were marked with rings, and after inspection of distal sites, the patient was weaned from cardiopulmonary bypass. Cannula was removed and the aortic cannulation site secured with a Prolene suture. Following this, mediastinal and left pleural drains were placed, and after obtaining adequate hemostasis, the sternum was reapproximated with vancomycin paste on the sternal edges, platelet-rich blood, and platelet-poor plasma. Subcutaneous tissue and skin were closed in layers. The right groin incision was again inspected and it was elected at this time to place a wound VAC rather than attempt closure. The patient tolerated this procedure and is to be taken to the ICU in guarded condition. Job ID: [id number]
--- NOTE | 2020-02-04 08:48 | PDOC.HOSPP ---
- Subjective Encounter Date: 02/04/20 Encounter Time: 07:10 Subjective: Patient seen and examined. No new complaints. No overnight events, patient is appear weak, no chest pain no shortness of breath - Objective Vital Signs & Weight: Vital Signs (12 hours) Pulse Resp BP Pulse Ox 02/04/20 06:52 84 16 02/04/20 01:49 86 18 111/64 98 02/04/20 01:14 86 16 97 02/04/20 00:15 97 Weight Admit Weight 193 lb 5.526 oz Weight 215 lb 11.2 oz Most Recent Monitor Data Heart Rate from ECG 90 NIBP 112/68 NIBP BP-Mean 82 Respiration from ECG 22 SpO2 95 I&O: 02/03/20 02/04/20 02/05/20 06:59 06:59 06:59 Intake Total 2225.8 980 Output Total 1680 660 Balance 545.8 320 Result Diagrams: 02/03/20 04:05 02/03/20 04:05 Additional Labs: Accuchecks 02/04/20 02/03/20 02/03/20 05:23 20:21 16:54 POC Glucose 161 H 192 H 268 H 02/03/20 02/03/20 12:22 09:52 POC Glucose 280 H 155 H Radiology Reviewed by me: Yes EKG Reviewed by me: Yes Hospitalist ROS - Review of Systems Constitutional: reports: weakness. denies: fever, chills, sweats, malaise, other ENT: denies: ear pain, ear discharge, nose pain, nose discharge, nose congestion, mouth pain, mouth swelling, throat pain, throat swelling, other Respiratory: denies: cough, dry, shortness of breath, hemoptysis, SOB with excertion, pleuritic pain, sputum, wheezing, other Cardiovascular: denies: chest pain, palpitations, orthopnea, paroxysmal noc. dyspnea, edema, light headedness, other Gastrointestinal: denies: nausea, vomiting, abdominal pain, diarrhea, constipation, melena, hematochezia, other Genitourinary: denies: dysuria, frequency, incontinence, hematuria, retention, other Musculoskeletal: denies: neck pain, shoulder pain, arm pain, back pain, hand pain, leg pain, foot pain, other - Medication Medications: Active Medications Generic Name Dose Route Start Last Admin Trade Name Freq PRN Reason Stop Dose Admin Hydrocodone Bitart/Acetaminophen 1 tab 02/02/20 12:53 02/03/20 02:34 Hydrocodone/Acetaminophen 5/325 Mg Tablet PO 1 tab Q4H PRN Administration Moderate Pain (4-6) Hydrocodone Bitart/Acetaminophen 2 tab 02/02/20 12:53 02/03/20 12:29 Hydrocodone/Acetaminophen 5/325 Mg Tablet PO 2 tab Q4H PRN Administration Severe Pain (7-10) Albuterol/Ipratropium 3 ml 02/02/20 13:00 02/04/20 06:52 Ipratropium/Albuterol Sulfate 3 Ml Neb NEB 3 ml [id number] ARI Administration Atorvastatin Calcium 40 mg 02/03/20 21:00 02/03/20 21:26 Atorvastatin Calcium 40 Mg Tab PO 40 mg HS ARI Administration Fentanyl 25 mcg 02/02/20 12:53 02/02/20 18:36 Fentanyl 100 Mcg/2 Ml Vial SLOW IVP 02/04/20 12:43 25 mcg Q2H PRN Administration Moderate Pain (4-6) Oxacillin Sodium 2 gm/ Sodium 100 mls @ 200 mls/hr 02/02/20 17:00 02/04/20 05:33 Chloride IVPB 100 mls Q4HR ARI Administration Insulin Human Regular 0 units 02/03/20 10:45 02/04/20 06:08 Insulin Regular 300 Units/3 Ml Vial SC 3 unit Q4H PRN Administration POST OP SLIDING SCALE Protocol Polyethylene Glycol 17 gm 02/03/20 09:00 02/03/20 08:20 Polyethylene Glycol 3350 17 Gm Packet PO 17 gm DAILY ARI Administration Potassium Chloride 20 meq 02/02/20 12:53 02/03/20 05:35 Potassium Chloride 20 Meq/100 Ml Premix Bag IVPB 20 meq PRN PRN Administration K level </= 4.0 - Exam General Appearance: NAD, awake alert Eye: PERRL, anicteric sclera ENT: normocephalic atraumatic, no oropharyngeal lesions Neck: supple, symmetric, no JVD, no thyromegaly Heart: RRR, no murmur, no gallops, no rubs Heart - other findings: Surgical site with dressing Respiratory: no wheezes, no rales, no ronchi Gastrointestinal: soft, non-tender, non-distended, normal bowel sounds Extremities: no cyanosis, no clubbing Skin: normal turgor, no lesions Neurological: no new deficit Musculoskeletal: normal tone, normal strength Psychiatric: normal affect, normal behavior Hosp A/P (1) Status post coronary artery bypass graft Code(s): Z95.1 - PRESENCE OF AORTOCORONARY BYPASS GRAFT Status: Acute (2) CAD (coronary artery disease) Code(s): I25.10 - ATHSCL HEART DISEASE OF [place] CORONARY ARTERY W/O ANG PCTRS Status: Acute Qualifiers: Coronary Disease-Associated Artery/Lesion type: [place] artery [place] vs. 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 Stallworth Medication reviewed and continue present medication Cardiac rehab
[2020-02-04] MEDS: Polyethylene Glycol 3350 17 GM Packet PO SCH (08:49)
[2020-02-04] MEDS: Aspirin 325 mg Enteric Coated Tablet PO SCH (08:49)
[2020-02-04] MEDS ORDERED: Furosemide 40 MG/4 ML VIAL SLOW IVP SCH (09:00)
[2020-02-04] MEDS: HYDROcodone/Acetaminophen 5/325 mg Tablet PO PRN (09:06)
--- NOTE | 2020-02-04 13:09 | EKG ---
Test Reason : POST CABG Blood Pressure : / mmHG Vent. Rate : 074 BPM Atrial Rate : 074 BPM P-R Int : 148 ms QRS Dur : 112 ms QT Int : 462 ms P-R-T Axes : 074 -10 082 degrees QTc Int : 512 ms Normal sinus rhythm Prolonged QT Abnormal ECG Confirmed by KERRY LOPEZ MD ([id number]) on 02/04/2020 1:09:21 PM Referred By: MAGALI Confirmed By:KERRY LOPEZ MD
[2020-02-04] MEDS ORDERED: Furosemide 40 MG TAB PO SCH (14:00)
[2020-02-04] MEDS: Gabapentin 300 MG CAP PO SCH ×2 (15:34→20:44)
[2020-02-04] MEDS: Carvedilol 3.125 MG TAB PO SCH (16:45)
[2020-02-04] MEDS ORDERED: metFORMIN 500 MG TAB PO SCH (17:00)
[2020-02-04] MEDS: Atorvastatin Calcium 40 MG TAB PO SCH (20:44)
[2020-02-05] MEDS: Oxacillin 2 GM in Sodium Chloride 0.9% 100 ML IVPB SCH ×6 (01:23→20:56)
[2020-02-05] MEDS: Insulin Regular 300 UNITS/3 ML VIAL SC PRN ×3 (06:43→17:27)
[2020-02-05] MEDS ORDERED: Furosemide 40 MG/4 ML VIAL SLOW IVP SCH ×2 (07:15→09:00)
--- NOTE | 2020-02-05 07:28 | PRG ---
DATE OF SERVICE: 02/05/2020 Patient's blood pressure is 110 to 120 with a resting heart rate of about 90. He has been placed on Coreg 3.125 b.i.d. and has been on some Lasix, but his weight continues to be about 10 to 15 pounds over his dry weight. On examination, his lungs are clear. His chest incision is clean, dry, and sternum appears stable and he does have pitting edema in both pretibial areas, probably in the 1+ range. He has a wound VAC on the right groin that is to be changed today. At this time, the patient is progressing relatively well. His sugars are generally under 200 at this time. We will plan on wound VAC change today and we will add IV Lasix for the next 24 hours, perhaps 48 hours and then, the patient should be ready for discharge if he is continuing to do well. Job ID: [id number]
[2020-02-05] MEDS: Carvedilol 3.125 MG TAB PO SCH ×2 (07:38→17:26)
[2020-02-05] MEDS: Aspirin 325 mg Enteric Coated Tablet PO SCH (08:32)
[2020-02-05] MEDS: Gabapentin 300 MG CAP PO SCH ×3 (08:32→20:56)
[2020-02-05] MEDS: Polyethylene Glycol 3350 17 GM Packet PO SCH (08:32)
[2020-02-05] MEDS: HYDROcodone/Acetaminophen 5/325 mg Tablet PO PRN (12:14)
--- NOTE | 2020-02-05 12:19 | PDOC.HOSPP ---
- Subjective Encounter Date: 02/05/20 Encounter Time: 09:00 Subjective: no sob or pain is ambulating with Cardiac rehab feels better - Objective Vital Signs & Weight: Vital Signs (12 hours) Temp Pulse Resp BP BP Pulse Ox 02/05/20 07:30 96 02/05/20 07:26 99 F 87 16 125/64 96 02/05/20 06:59 85 14 02/05/20 04:00 98.8 F 83 123/69 95 02/05/20 01:30 87 16 94 L Weight Admit Weight 193 lb 5.526 oz Weight 215 lb 14.4 oz Most Recent Monitor Data Heart Rate from ECG 90 NIBP 112/68 NIBP BP-Mean 82 Respiration from ECG 22 SpO2 95 I&O: 02/04/20 02/05/20 02/06/20 06:59 06:59 06:59 Intake Total 980 1530 120 Output Total 660 1350 Balance 320 180 120 Result Diagrams: 02/03/20 04:05 02/03/20 04:05 Additional Labs: Accuchecks 02/05/20 02/05/20 02/04/20 11:42 06:31 20:29 POC Glucose 221 H 163 H 159 H 02/04/20 02/02/20 02/02/20 16:51 12:45 11:37 POC Glucose 156 H 135 H 133 H 02/02/20 02/02/20 02/02/20 11:10 10:53 10:35 POC Glucose 120 H 128 H 125 H 02/02/20 10:08 POC Glucose 124 H Hospitalist ROS - Medication Medications: Active Medications Generic Name Dose Route Start Last Admin Trade Name Freq PRN Reason Stop Dose Admin Hydrocodone Bitart/Acetaminophen 1 tab 02/02/20 12:53 02/03/20 02:34 Hydrocodone/Acetaminophen 5/325 Mg Tablet PO 1 tab Q4H PRN Administration Moderate Pain (4-6) Hydrocodone Bitart/Acetaminophen 2 tab 02/02/20 12:53 02/04/20 09:06 Hydrocodone/Acetaminophen 5/325 Mg Tablet PO 2 tab Q4H PRN Administration Severe Pain (7-10) Albuterol/Ipratropium 3 ml 02/02/20 13:00 02/05/20 06:59 Ipratropium/Albuterol Sulfate 3 Ml Neb NEB 3 ml [id number] ARI Administration Aspirin 325 mg 02/04/20 09:00 02/05/20 08:32 Aspirin 325 Mg Enteric Coated Tablet PO 325 mg DAILY ARI Administration Atorvastatin Calcium 40 mg 02/03/20 21:00 02/04/20 20:44 Atorvastatin Calcium 40 Mg Tab PO 40 mg HS ARI Administration Carvedilol 3.125 mg 02/04/20 17:00 02/05/20 07:38 Carvedilol 3.125 Mg Tab PO 3.125 mg BID-WM ARI Administration Gabapentin 300 mg 02/04/20 15:00 02/05/20 08:32 Gabapentin 300 Mg Cap PO 300 mg TID ARI Administration Oxacillin Sodium 2 gm/ Sodium 100 mls @ 200 mls/hr 02/02/20 17:00 02/05/20 05:04 Chloride IVPB 100 mls Q4HR ARI Administration Insulin Human Regular 0 units 02/03/20 10:45 02/05/20 06:43 Insulin Regular 300 Units/3 Ml Vial SC 4 unit Q4H PRN Administration POST OP SLIDING SCALE Protocol Polyethylene Glycol 17 gm 02/03/20 09:00 02/05/20 08:32 Polyethylene Glycol 3350 17 Gm Packet PO Not Given DAILY ARI Potassium Chloride 20 meq 02/02/20 12:53 02/03/20 05:35 Potassium Chloride 20 Meq/100 Ml Premix Bag IVPB 20 meq PRN PRN Administration K level </= 4.0 Potassium Chloride 20 meq 02/05/20 08:00 02/05/20 07:38 Potassium Chloride 20 Meq Packet PO 20 meq QAM-WM ARI Administration - Exam General Appearance: awake alert Eye: PERRL, anicteric sclera ENT: no oropharyngeal lesions, moist mucosa Neck: supple, no JVD Heart: RRR, no murmur Respiratory: no wheezes, no rales Gastrointestinal: soft, non-tender, non-distended, normal bowel sounds Extremities: no cyanosis, 1+ LE edema Extremities - other findings: right groin wound in wound vac Neurological: cranial nerve grossly intact, no focal deficits Psychiatric: A&O x 3 Hosp A/P (1) CAD (coronary artery disease) Code(s): I25.10 - ATHSCL HEART DISEASE OF [place] CORONARY ARTERY W/O ANG PCTRS Status: Acute Qualifiers: Coronary Disease-Associated Artery/Lesion type: bypass graft [place] vs. 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 s/p cabg x3 vessel disease, solorzano to lad, rsvg to om and pda continue lasix, asp, lipitor, coreg, neurontin, may start metformin as well hemostable dc plan likely in am or wednesday once he has diuresed enough
[2020-02-05 12:24] VITALS: BMI 32.8
[2020-02-05 13:13] LABS: Fungus Stain Final report (.)
[2020-02-05] MEDS: Furosemide 40 MG/4 ML VIAL SLOW IVP SCH (14:56)
[2020-02-05] MEDS: metFORMIN 500 MG TAB PO SCH (17:26)
[2020-02-05] MEDS: Atorvastatin Calcium 40 MG TAB PO SCH (20:56)
[2020-02-06] MEDS: Oxacillin 2 GM in Sodium Chloride 0.9% 100 ML IVPB SCH ×6 (00:54→21:58)
[2020-02-06] MEDS ORDERED: Metoprolol Tartrate 5 MG/5 ML VIAL IVP SCH (02:45)
[2020-02-06 02:54] LABS: #Eosinphils 0.1 thou/uL (0.0-0.7); #Lymphocytes 1.5 thou/uL (1.20-3.40); #Monocytes 0.9 thou/uL (0.11-0.59); #Neutrophils 10.2 thou/uL (1.40-6.50); %Basophils 0.1 % (0.0-1.0); %Eosinophils 0.9 % (0.0-10.0); %Lymphocytes 11.7 % (21.0-51.0); %Neutrophils 80.3 % (42.0-75.0); Hemoglobin 8.7 g/dL (14.0-18.0); Mean Corpuscular HGB CONC 32.5 g/dL (32.0-36.0); Mean Corpuscular Hemoglobin 28.7 pg (27.0-31.0); Mean Corpuscular Volume 88.1 fL (78.0-98.0); Mean Platelet Volume 7.9 fL (7.4-10.4); Platelet Count 257 thou/uL (130-400); RBC Distribution Width 12.7 % (11.5-14.5); Red Blood Cell (RBC) Count 3.02 mill/uL (4.70-6.10); White Blood Cell (WBC) Count 12.7 thou/uL (4.8-10.8)
[2020-02-06 03:22] LABS: Anion Gap 15 mmol/L (10-20); BUN (Urea Nitrogen) 35 mg/dL (8.4-25.7); Calc. Creatinine Clearance 94 mL/min (70-130); Calcium 8.1 mg/dL (7.8-10.44); Carbon Dioxide 22 mmol/L (22-29); Chloride 102 mmol/L (98-107); Estimated GFR-MDRD 63; Glucose 222 mg/dL (70-105); Potassium 3.9 mmol/L (3.5-5.1); Sodium 135 mmol/L (136-145)
[2020-02-06] MEDS ORDERED: Diltiazem 125 MG in Sodium Chloride 0.9% 100 ML IVPB SCH (03:30)
--- NOTE | 2020-02-06 03:32 | PDOC.EVN ---
Event Note - Event Note Event Note: Notified by RN, patient became tachycardic 130s to 140s at 01:54. Patient asymptomatic. BP 109/67. EKG ordered showed Afib RVR with rate of 116. Given Metoprolol 5 mg IV x 1. HR improved to 94, BP 120/73. Now Afib, rate controlled. Will hold anticoagulation given recent CABG. Labs ordered including lytes and trop.
[2020-02-06 03:38] LABS: CKMB 1.2 ng/mL (0-6.6)
[2020-02-06] MEDS: Furosemide 40 MG/4 ML VIAL SLOW IVP SCH (05:14)
[2020-02-06] MEDS: Insulin Regular 300 UNITS/3 ML VIAL SC PRN ×2 (05:16→12:15)
[2020-02-06] MEDS ORDERED: Furosemide 40 MG TAB PO SCH (07:30)
[2020-02-06] MEDS: Carvedilol 3.125 MG TAB PO SCH ×2 (08:30→17:05)
[2020-02-06] MEDS: Aspirin 325 mg Enteric Coated Tablet PO SCH (08:31)
[2020-02-06] MEDS: metFORMIN 500 MG TAB PO SCH ×2 (08:31→17:05)
[2020-02-06] MEDS: Gabapentin 300 MG CAP PO SCH ×3 (08:31→21:58)
[2020-02-06] MEDS: Polyethylene Glycol 3350 17 GM Packet PO SCH (08:31)
[2020-02-06] MEDS ORDERED: Metolazone 5 MG TAB PO SCH (09:15)
--- NOTE | 2020-02-06 12:44 | PDOC.HOSPP ---
- Subjective Encounter Date: 02/06/20 Encounter Time: 09:40 Subjective: no sob or palpitations now had a.flutter and got back into sinus rhythm by 4 am is sitting on bed, ate his breakfast - Objective Vital Signs & Weight: Vital Signs (12 hours) Temp Pulse Pulse Pulse Resp BP BP 02/06/20 12:09 99.1 F 79 16 02/06/20 09:33 85 81 113/59 L 97/53 L 02/06/20 07:15 98.2 F 80 17 02/06/20 07:13 82 16 02/06/20 03:24 94 02/06/20 03:04 98.4 F 122 H 16 02/06/20 02:13 143 H 02/06/20 00:59 112 H 16 BP BP BP Pulse Ox Pulse Ox Pulse Ox 02/06/20 12:09 118/67 96 02/06/20 09:33 107/59 L 98 97 02/06/20 07:15 111/74 100 02/06/20 07:13 02/06/20 03:24 120/73 02/06/20 03:04 114/77 96 02/06/20 02:13 109/67 02/06/20 00:59 Weight Admit Weight 193 lb 5.526 oz Weight 214 lb 9.6 oz Most Recent Monitor Data Heart Rate from ECG 90 NIBP 112/68 NIBP BP-Mean 82 Respiration from ECG 22 SpO2 95 I&O: 02/05/20 02/06/20 02/07/20 06:59 06:59 06:59 Intake Total 1530 1137 Output Total 1350 400 Balance 180 737 Result Diagrams: 02/06/20 02:47 02/06/20 02:47 Additional Labs: Accuchecks 02/06/20 02/06/20 02/05/20 11:19 05:20 21:31 POC Glucose 226 H 185 H 201 H 02/05/20 16:55 POC Glucose 158 H Hospitalist ROS - Medication Medications: Active Medications Generic Name Dose Route Start Last Admin Trade Name Freq PRN Reason Stop Dose Admin Hydrocodone Bitart/Acetaminophen 1 tab 02/02/20 12:53 02/03/20 02:34 Hydrocodone/Acetaminophen 5/325 Mg Tablet PO 1 tab Q4H PRN Administration Moderate Pain (4-6) Hydrocodone Bitart/Acetaminophen 2 tab 02/02/20 12:53 02/05/20 12:14 Hydrocodone/Acetaminophen 5/325 Mg Tablet PO 2 tab Q4H PRN Administration Severe Pain (7-10) Albuterol/Ipratropium 3 ml 02/02/20 13:00 02/06/20 07:13 Ipratropium/Albuterol Sulfate 3 Ml Neb NEB 3 ml [id number] ARI Administration Aspirin 325 mg 02/04/20 09:00 02/06/20 08:31 Aspirin 325 Mg Enteric Coated Tablet PO 325 mg DAILY ARI Administration Atorvastatin Calcium 40 mg 02/03/20 21:00 02/05/20 20:56 Atorvastatin Calcium 40 Mg Tab PO 40 mg HS ARI Administration Carvedilol 3.125 mg 02/04/20 17:00 02/06/20 08:30 Carvedilol 3.125 Mg Tab PO 3.125 mg BID-WM ARI Administration Furosemide 40 mg 02/06/20 07:30 02/06/20 08:30 Furosemide 40 Mg Tab PO 40 mg DAILY-AC ARI Administration Gabapentin 300 mg 02/04/20 15:00 02/06/20 08:31 Gabapentin 300 Mg Cap PO 300 mg TID ARI Administration Oxacillin Sodium 2 gm/ Sodium 100 mls @ 200 mls/hr 02/02/20 17:00 02/06/20 12:15 Chloride IVPB 100 mls Q4HR ARI Administration Insulin Human Regular 0 units 02/03/20 10:45 02/06/20 12:15 Insulin Regular 300 Units/3 Ml Vial SC 6 unit Q4H PRN Administration POST OP SLIDING SCALE Protocol Metformin HCl 500 mg 02/05/20 17:00 02/06/20 08:31 Metformin 500 Mg Tab PO 500 mg BID-WM ARI Administration Polyethylene Glycol 17 gm 02/03/20 09:00 02/06/20 08:31 Polyethylene Glycol 3350 17 Gm Packet PO 17 gm DAILY ARI Administration Potassium Chloride 20 meq 02/02/20 12:53 02/03/20 05:35 Potassium Chloride 20 Meq/100 Ml Premix Bag IVPB 20 meq PRN PRN Administration K level </= 4.0 Potassium Chloride 20 meq 02/05/20 08:00 02/06/20 08:30 Potassium Chloride 20 Meq Packet PO 20 meq QAM-WM ARI Administration - Exam General Appearance: awake alert Eye: PERRL, anicteric sclera ENT: no oropharyngeal lesions, moist mucosa Neck: supple, no JVD Heart: RRR, no murmur Respiratory: no wheezes, rales Gastrointestinal: soft, non-tender, non-distended, normal bowel sounds Extremities: no cyanosis, 1+ LE edema Neurological: cranial nerve grossly intact, no focal deficits Psychiatric: normal affect, A&O x 3 Hosp A/P (1) CAD (coronary artery disease) Code(s): I25.10 - ATHSCL HEART DISEASE OF [place] CORONARY ARTERY W/O ANG PCTRS Status: Acute Qualifiers: Coronary Disease-Associated Artery/Lesion type: bypass graft [place] vs. 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 s/p cabg x3 vessel disease, solorzano to lad, rsvg to om and pda continue lasix, asp, lipitor, coreg, neurontin, may start metformin as well hemostable brief episode of atrial flutter overnight got resolved this am continue cardiac rehab
--- NOTE | 2020-02-06 16:27 | EKG ---
Test Reason : Blood Pressure : / mmHG Vent. Rate : 116 BPM Atrial Rate : 113 BPM P-R Int : 000 ms QRS Dur : 100 ms QT Int : 354 ms P-R-T Axes : 000 010 094 degrees QTc Int : 492 ms Atrial fibrillation with rapid ventricular response Non-specific intra-ventricular conduction delay Nonspecific ST and T wave abnormality Abnormal ECG Confirmed by GEOVANNI DAWKINS ([id number]) on 02/06/2020 4:26:51 PM Referred By: EDOUARD Confirmed By:GEOVANNI DAWKINS
[2020-02-06] MEDS: Atorvastatin Calcium 40 MG TAB PO SCH (21:58)
[2020-02-07] MEDS: Oxacillin 2 GM in Sodium Chloride 0.9% 100 ML IVPB SCH ×5 (00:44→17:25)
[2020-02-07] MEDS ORDERED: Lorazepam 2 MG/ML VIAL SLOW IVP SCH (06:00)
[2020-02-07] MEDS ORDERED: Aspirin 325 mg Enteric Coated Tablet PO SCH (06:10)
[2020-02-07] MEDS ORDERED: Furosemide 40 MG TAB PO SCH (06:11)
[2020-02-07] MEDS: Furosemide 80 MG TAB PO SCH (07:38)
[2020-02-07] MEDS: Insulin Regular 300 UNITS/3 ML VIAL SC PRN ×3 (07:39→17:22)
[2020-02-07] MEDS: Lisinopril 2.5 MG TAB PO SCH (09:22)
[2020-02-07] MEDS: metFORMIN 500 MG TAB PO SCH ×2 (09:22→17:23)
[2020-02-07] MEDS: Carvedilol 3.125 MG TAB PO SCH ×2 (09:23→17:23)
[2020-02-07] MEDS: Gabapentin 300 MG CAP PO SCH ×3 (09:23→21:14)
[2020-02-07] MEDS: Aspirin 81 mg Enteric Coated Tablet PO SCH (09:23)
[2020-02-07] MEDS: Polyethylene Glycol 3350 17 GM Packet PO SCH (09:26)
--- NOTE | 2020-02-07 10:37 | SPC ---
Exam: Leftupper extremity ultrasound guided PICC line HISTORY: TPN, IV antibiotics Exposure:0.4 minutes, 3300 mg/sq cm FINDINGS: Lumen: Singlelumen Trim length: 50 cm Distal tip:Right atrium Catheter flushes and aspirates without difficulty TECHNIQUE: Consent obtained to perform a left upper extremity PICC line with ultrasound guidance. Le ftarm was prepped and draped in a sterile fashion. 1% lidocaine, buffered with sodium bicarbonate was used for local anesthesia. Under ultrasound guidance, micropuncture needle was used to cannulate thebrachialvein. A 0.018 guidewire was advanced through the needle to level of the superior vena cava. Under fluoroscopy, wire was advanced such that it terminated in the right atrium. . Single lume n flushes and aspirates without difficulty. Patient tolerated the procedure well. No immediate or postprocedure complications IMPRESSION: Successfulleftupper surgery PICC line placement with ultrasound guidance
[2020-02-07] MEDS: HYDROcodone/Acetaminophen 5/325 mg Tablet PO PRN (11:54)
--- NOTE | 2020-02-07 11:57 | PDOC.HOSPP ---
- Subjective Encounter Date: 02/07/20 Encounter Time: 09:00 Subjective: no chest pain or sob has more edema in his legs this am says he is ambulating with cardiac rehab - Objective Vital Signs & Weight: Vital Signs (12 hours) Temp Pulse Pulse Pulse Resp BP BP 02/07/20 08:50 86 83 104/50 L 106/56 L 02/07/20 07:46 98.2 F 83 16 02/07/20 07:11 81 16 02/07/20 04:00 99.2 F 84 18 02/07/20 00:55 16 BP BP Pulse Ox Pulse Ox Pulse Ox 02/07/20 08:50 97 96 02/07/20 07:46 154/78 H 96 02/07/20 07:11 02/07/20 04:00 127/67 96 02/07/20 00:55 Weight Admit Weight 193 lb 5.526 oz Weight 214 lb 8.156 oz Most Recent Monitor Data Heart Rate from ECG 90 NIBP 112/68 NIBP BP-Mean 82 Respiration from ECG 22 SpO2 95 I&O: 02/06/20 02/07/20 02/08/20 06:59 06:59 06:59 Intake Total 1137 2009 Output Total 400 1950 Balance 737 60 Result Diagrams: 02/06/20 02:47 02/06/20 02:47 Additional Labs: Accuchecks 02/07/20 02/06/20 02/06/20 05:42 20:21 17:06 POC Glucose 176 H 143 H 135 H Hospitalist ROS - Medication Medications: Active Medications Generic Name Dose Route Start Last Admin Trade Name Freq PRN Reason Stop Dose Admin Hydrocodone Bitart/Acetaminophen 1 tab 02/02/20 12:53 02/03/20 02:34 Hydrocodone/Acetaminophen 5/325 Mg Tablet PO 1 tab Q4H PRN Administration Moderate Pain (4-6) Hydrocodone Bitart/Acetaminophen 2 tab 02/02/20 12:53 02/05/20 12:14 Hydrocodone/Acetaminophen 5/325 Mg Tablet PO 2 tab Q4H PRN Administration Severe Pain (7-10) Albuterol/Ipratropium 3 ml 02/02/20 13:00 02/07/20 07:11 Ipratropium/Albuterol Sulfate 3 Ml Neb NEB 3 ml [id number] ARI Administration Aspirin 81 mg 02/07/20 09:00 02/07/20 09:23 Aspirin 81 Mg Enteric Coated Tablet PO 81 mg DAILY ARI Administration Atorvastatin Calcium 40 mg 02/03/20 21:00 02/06/20 21:58 Atorvastatin Calcium 40 Mg Tab PO 40 mg HS ARI Administration Carvedilol 3.125 mg 02/04/20 17:00 02/07/20 09:23 Carvedilol 3.125 Mg Tab PO 3.125 mg BID-WM ARI Administration Furosemide 80 mg 02/07/20 07:30 02/07/20 07:38 Furosemide 80 Mg Tab PO 80 mg DAILY-AC ARI Administration Gabapentin 300 mg 02/04/20 15:00 02/07/20 09:23 Gabapentin 300 Mg Cap PO 300 mg TID ARI Administration Oxacillin Sodium 2 gm/ Sodium 100 mls @ 200 mls/hr 02/02/20 17:00 02/07/20 11:18 Chloride IVPB 100 mls Q4HR ARI Administration Insulin Human Regular 0 units 02/03/20 10:45 02/07/20 07:39 Insulin Regular 300 Units/3 Ml Vial SC 4 unit Q4H PRN Administration POST OP SLIDING SCALE Protocol Lisinopril 2.5 mg 02/07/20 09:00 02/07/20 09:22 Lisinopril 2.5 Mg Tab PO 2.5 mg DAILY ARI Administration Metformin HCl 500 mg 02/05/20 17:00 02/07/20 09:22 Metformin 500 Mg Tab PO 500 mg BID-WM ARI Administration Polyethylene Glycol 17 gm 02/03/20 09:00 02/07/20 09:26 Polyethylene Glycol 3350 17 Gm Packet PO Not Given DAILY ARI Potassium Chloride 20 meq 02/05/20 08:00 02/07/20 09:22 Potassium Chloride 20 Meq Packet PO 20 meq QAM-WM ARI Administration Sodium Chloride 10 ml 02/07/20 09:00 02/07/20 09:26 Flush - Normal Saline 10 Ml Syringe IVF 10 ml Q12HR ARI Administration - Exam General Appearance: awake alert Eye: PERRL, anicteric sclera ENT: no oropharyngeal lesions, moist mucosa Neck: supple, no JVD Heart: RRR, no murmur Respiratory: no wheezes, no ronchi, rales Gastrointestinal: soft, non-tender, non-distended, normal bowel sounds Extremities: no cyanosis, 2+ LE edema Neurological: cranial nerve grossly intact, no focal deficits Psychiatric: A&O x 3 Hosp A/P (1) CAD (coronary artery disease) Code(s): I25.10 - ATHSCL HEART DISEASE OF [place] CORONARY ARTERY W/O ANG PCTRS Status: Acute Qualifiers: Coronary Disease-Associated Artery/Lesion type: bypass graft [place] vs. transplanted heart: [place] heart (2) MSSA bacteremia Code(s): R78.81 - BACTEREMIA; B95.61 - METHICILLIN SUSCEP STAPH INFCT CAUSING DIS CLASSD ELSWHR Status: Acute (3) Chronic CHF Code(s): I50.9 - HEART FAILURE, UNSPECIFIED Status: Chronic Qualifiers: Heart failure type: combined systolic and diastolic Qualified Code(s): I50.42 - Chronic combined systolic (congestive) and diastolic (congestive) heart failure (4) Diabetes type 2, controlled Code(s): E11.9 - TYPE 2 DIABETES MELLITUS WITHOUT COMPLICATIONS Status: Chronic Qualifiers: Diabetes mellitus group home insulin use: with site interpreter use (5) Dyslipidemia Code(s): E78.5 - HYPERLIPIDEMIA, UNSPECIFIED Status: Chronic (6) Hypertension Code(s): I10 - ESSENTIAL (PRIMARY) HYPERTENSION Status: Chronic Qualifiers: (7) Neuropathy Code(s): G62.9 - POLYNEUROPATHY, UNSPECIFIED Status: Chronic - Plan is on oxacillin 2g q4h, end date per advice, had picc line placed today. s/p cabg x3 vessel disease, solorzano to lad, rsvg to om and pda continue lasix, asp, lipitor, coreg, neurontin, may start metformin as well hemostable brief episode of atrial flutter overnight got resolved 02/05, in sinus this am continue cardiac rehab maxi burnett for edema in LE if cleared by CTS, needs diuresis, to elevate legs while sitting
[2020-02-07] MEDS: Atorvastatin Calcium 40 MG TAB PO SCH (21:14)
[2020-02-07] MEDS: CEFAZOLIN 2 GM in Premix Bag 1 BAG IVPB SCH (21:14)
[2020-02-07] MEDS: Mag-Al 1200 mg/1200 mg/30 ML UDCUP PO PRN (21:27)
[2020-02-08 00:33] LABS: #Basophils 0.1 thou/uL (0.0-0.2); #Eosinphils 0.2 thou/uL (0.0-0.7); #Lymphocytes 1.8 thou/uL (1.20-3.40); #Monocytes 1.1 thou/uL (0.11-0.59); #Neutrophils 8.7 thou/uL (1.40-6.50); %Basophils 0.5 % (0.0-1.0); %Eosinophils 1.9 % (0.0-10.0); %Lymphocytes 15.5 % (21.0-51.0); %Neutrophils 73.1 % (42.0-75.0); Hemoglobin 9.1 g/dL (14.0-18.0); Mean Corpuscular Hemoglobin 28.3 pg (27.0-31.0); Mean Corpuscular Volume 88.4 fL (78.0-98.0); Mean Platelet Volume 7.3 fL (7.4-10.4); Platelet Count 366 thou/uL (130-400); RBC Distribution Width 12.8 % (11.5-14.5); Red Blood Cell (RBC) Count 3.21 mill/uL (4.70-6.10); White Blood Cell (WBC) Count 11.9 thou/uL (4.8-10.8)
[2020-02-08 00:52] LABS: Anion Gap 14 mmol/L (10-20); BUN (Urea Nitrogen) 33 mg/dL (8.4-25.7); Calc. Creatinine Clearance 106 mL/min (70-130); Calcium 8.8 mg/dL (7.8-10.44); Carbon Dioxide 27 mmol/L (22-29); Chloride 98 mmol/L (98-107); Estimated GFR-MDRD 73; Glucose 192 mg/dL (70-105); Magnesium 1.9 mg/dL (1.6-2.6); Potassium 4.1 mmol/L (3.5-5.1); Sodium 135 mmol/L (136-145)
[2020-02-08] MEDS ORDERED: Diltiazem HCl 125 MG, Admixture Fee 1 EACH in Sodium Chloride 0.9% 100 ML IVPB SCH (01:30)
[2020-02-08] MEDS: CEFAZOLIN 2 GM in Premix Bag 1 BAG IVPB SCH ×3 (06:31→21:55)
[2020-02-08] MEDS: Insulin Regular 300 UNITS/3 ML VIAL SC PRN ×2 (06:33→11:48)
[2020-02-08] MEDS: Carvedilol 3.125 MG TAB PO SCH ×2 (08:41→17:28)
[2020-02-08] MEDS: metFORMIN 500 MG TAB PO SCH ×2 (08:41→17:28)
[2020-02-08] MEDS: Gabapentin 300 MG CAP PO SCH ×3 (08:42→20:14)
[2020-02-08] MEDS: Aspirin 81 mg Enteric Coated Tablet PO SCH (08:42)
[2020-02-08] MEDS: Furosemide 80 MG TAB PO SCH (08:42)
[2020-02-08] MEDS: Lisinopril 2.5 MG TAB PO SCH (08:42)
[2020-02-08] MEDS: Polyethylene Glycol 3350 17 GM Packet PO SCH (08:44)
[2020-02-08] MEDS ORDERED: Mag-Al 1200 mg/1200 mg/30 ML UDCUP PO SCH (12:45)
--- NOTE | 2020-02-08 13:21 | EKG ---
Test Reason : STAT Blood Pressure : / mmHG Vent. Rate : 114 BPM Atrial Rate : 127 BPM P-R Int : 000 ms QRS Dur : 098 ms QT Int : 334 ms P-R-T Axes : 000 -05 089 degrees QTc Int : 460 ms Atrial fibrillation with rapid ventricular response Nonspecific ST and T wave abnormality , probably digitalis effect Abnormal ECG Confirmed by GOEVANNI DAWKINS ([id number]) on 02/08/2020 1:20:59 PM Referred By: EDOUARD Confirmed By:GEOVANNI DAWKINS
--- NOTE | 2020-02-08 15:26 | PDOC.HOSPP ---
- Subjective Encounter Date: 02/08/20 Encounter Time: 07:30 Subjective: Patient was seen for follow-up regarding atrial flutter. Patient had episode of atrial flutter overnight. Currently in normal sinus rhythm. - Objective Vital Signs & Weight: Vital Signs (12 hours) Temp Pulse Pulse Pulse Resp BP BP 02/08/20 13:05 76 72 128/59 L 02/08/20 11:30 98.6 F 75 16 02/08/20 08:42 74 115/57 L 02/08/20 08:10 98.2 F 74 15 02/08/20 04:17 98.1 F 63 16 BP BP BP BP Pulse Ox Pulse Ox Pulse Ox 02/08/20 13:05 107/57 L 98 94 L 02/08/20 11:30 112/55 L 96 02/08/20 08:42 02/08/20 08:10 115/57 L 95 02/08/20 04:17 114/63 94 L Weight Admit Weight 193 lb 5.526 oz Weight 211 lb 9 oz Most Recent Monitor Data Heart Rate from ECG 90 NIBP 112/68 NIBP BP-Mean 82 Respiration from ECG 22 SpO2 95 I&O: 02/07/20 02/08/20 02/09/20 06:59 06:59 06:59 Intake Total 20090 Output Total 1949 1685 Balance 60 -115 Result Diagrams: 02/08/20 00:17 02/08/20 00:17 Additional Labs: Accuchecks 02/08/20 02/08/20 02/07/20 11:10 05:42 20:25 POC Glucose 183 H 176 H 177 H 02/07/20 16:10 POC Glucose 147 H I reviewed patient's labs and MAR EKG Reviewed by me: Yes (Telemetry: Normal sinus rhythm) Hospitalist ROS - Review of Systems Cardiovascular: reports: edema. denies: chest pain, palpitations, orthopnea, paroxysmal noc. dyspnea, light headedness Gastrointestinal: denies: nausea, vomiting, abdominal pain, diarrhea, constipat ion, melena, hematochezia - Medication Medications: Active Medications Generic Name Dose Route Start Last Admin Trade Name Freq PRN Reason Stop Dose Admin Hydrocodone Bitart/Acetaminophen 1 tab 02/02/20 12:53 02/03/20 02:34 Hydrocodone/Acetaminophen 5/325 Mg Tablet PO 1 tab Q4H PRN Administration Moderate Pain (4-6) Hydrocodone Bitart/Acetaminophen 2 tab 02/02/20 12:53 02/07/20 11:54 Hydrocodone/Acetaminophen 5/325 Mg Tablet PO 2 tab Q4H PRN Administration Severe Pain (7-10) Al Hydroxide/Mg Hydroxide 30 ml 02/03/20 10:37 02/07/20 21:27 Mag-Al 1200 Mg/1200 Mg/30 Ml Udcup PO 30 ml Q4H PRN Administration Indigestion Aspirin 81 mg 02/07/20 09:00 02/08/20 08:42 Aspirin 81 Mg Enteric Coated Tablet PO 81 mg DAILY ARI Administration Atorvastatin Calcium 40 mg 02/03/20 21:00 02/07/20 21:14 Atorvastatin Calcium 40 Mg Tab PO 40 mg HS ARI Administration Carvedilol 3.125 mg 02/04/20 17:00 02/08/20 08:41 Carvedilol 3.125 Mg Tab PO 3.125 mg BID-WM ARI Administration Diphenhydramine HCl 25 mg 02/03/20 10:37 02/07/20 21:27 Diphenhydramine 25 Mg Cap PO 25 mg Q6H PRN Administration Itching & Insomnia or Danielito Jason Furosemide 80 mg 02/07/20 07:30 02/08/20 08:42 Furosemide 80 Mg Tab PO 80 mg DAILY-AC ARI Administration Gabapentin 300 mg 02/04/20 15:00 02/08/20 14:03 Gabapentin 300 Mg Cap PO 300 mg TID ARI Administration Cefazolin Sodium/Dextrose 2 gm 50 mls @ 100 mls/hr 02/07/20 22:00 02/08/20 14:03 / Device IVPB 50 mls Q8HR ARI Administration Diltiazem HCl 125 mg/ 125 mls @ 5 mls/hr 02/08/20 01:30 02/08/20 02:13 Miscellaneous Medication 1 IVPB 125 mls each/ Sodium Chloride INF ARI Administration Protocol Insulin Human Regular 0 units 02/03/20 10:45 02/08/20 11:48 Insulin Regular 300 Units/3 Ml Vial SC 4 unit Q4H PRN Administration POST OP SLIDING SCALE Protocol Lisinopril 2.5 mg 02/07/20 09:00 02/08/20 08:42 Lisinopril 2.5 Mg Tab PO 2.5 mg DAILY ARI Administration Metformin HCl 500 mg 02/05/20 17:00 02/08/20 08:41 Metformin 500 Mg Tab PO 500 mg BID-WM ARI Administration Polyethylene Glycol 17 gm 02/03/20 09:00 02/08/20 08:44 Polyethylene Glycol 3350 17 Gm Packet PO 17 gm DAILY ARI Administration Potassium Chloride 20 meq 02/05/20 08:00 02/08/20 08:43 Potassium Chloride 20 Meq Packet PO 20 meq QAM-WM ARI Administration Sodium Chloride 10 ml 02/07/20 09:00 02/08/20 08:44 Flush - Normal Saline 10 Ml Syringe IVF 10 ml Q12HR ARI Administration - Exam General Appearance: awake alert General - other findings: Obese Eye: anicteric sclera ENT: moist mucosa Neck: supple, no thyromegaly Heart: RRR Respiratory: CTAB Gastrointestinal: soft, non-tender Extremities: 2+ LE edema Musculoskeletal: no muscle wasting Psychiatric: normal affect, normal behavior Hosp A/P - Plan -Assessment (1) atrial flutter Status: Acute (2) MSSA bacteremia Code(s): R78.81 - BACTEREMIA; B95.61 - METHICILLIN SUSCEP STAPH INFCT CAUSING DIS CLASSD ELSWHR Status: Acute (3) CAD (coronary artery disease) Code(s): I25.10 - ATHSCL HEART DISEASE OF [place] CORONARY ARTERY W/O ANG PCTRS Status: Acute Qualifiers: Coronary Disease-Associated Artery/Lesion type: bypass graft [place] vs. transplanted heart: [place] heart (4) Diabetes type 2, controlled Code(s): E11.9 - TYPE 2 DIABETES MELLITUS WITHOUT COMPLICATIONS Status: Chronic Qualifiers: Diabetes mellitus terminal clerk insulin use: with senior care use (5) Chronic CHF Code(s): I50.9 - HEART FAILURE, UNSPECIFIED Status: Chronic Qualifiers: Heart failure type: combined systolic and diastolic Qualified Code(s): I50.42 - Chronic combined systolic (congestive) and diastolic (congestive) heart failure (6) Dyslipidemia Code(s): E78.5 - HYPERLIPIDEMIA, UNSPECIFIED Status: Chronic (7) Hypertension Code(s): I10 - ESSENTIAL (PRIMARY) HYPERTENSION Status: Chronic Qualifiers: (8) Neuropathy Code(s): G62.9 - POLYNEUROPATHY, UNSPECIFIED Status: Chronic - Plan Patient is on Cardizem drip, will be changed to oral calcium channel myriam today. Patient's intravenous antibiotic has been changed to Ancef 2 g every 8 hours push to minimize volume overload. Patient had PICC line placed yesterday. Patient had coronary artery bypass graft x3 during this hospitalization. Reasonable control of blood sugars. continue cardiac rehab maxi hose for edema in LE if cleared by CTS, needs diuresis, to elevate legs while sitting Patient needs intravenous antibiotics set up as outpatient. Case management involved in discharge planning.
--- NOTE | 2020-02-08 17:51 | PRG ---
DATE OF SERVICE: 02/08/2020 SUBJECTIVE: Mr. Kathleen is doing well. No current complaints. No chest pain or pressure. He is ready to go home. OBJECTIVE: VITAL SIGNS: Blood pressure 107/57, pulse 75, respirations 20. LUNGS: Clear to auscultation. HEART: Regular rate and rhythm. ABDOMEN: Soft, nontender, nondistended. EXTREMITIES: No edema. IMPRESSION: 1. Coronary artery disease. 2. Status post bypass surgery. 3. Transient atrial fibrillation. 4. Right groin abscess. RECOMMENDATIONS: From a CV standpoint, Mr. Kathleen is doing well. We will continue current therapy. The patient has had two episodes of atrial fibrillation transiently. We will continue to monitor closely. We will recommend outpatient EVR to assess for persistent atrial fibrillation and treat appropriately. Increase carvedilol to 6.25 mg one p.o. b.i.d. Job ID: [id number]
[2020-02-08] MEDS: Atorvastatin Calcium 40 MG TAB PO SCH (20:14)
[2020-02-09] MEDS: CEFAZOLIN 2 GM in Premix Bag 1 BAG IVPB SCH ×3 (05:06→21:56)
[2020-02-09] MEDS: Insulin Regular 300 UNITS/3 ML VIAL SC PRN ×2 (06:29→22:17)
[2020-02-09] MEDS: Furosemide 80 MG TAB PO SCH (08:31)
[2020-02-09] MEDS: metFORMIN 500 MG TAB PO SCH ×2 (08:31→17:00)
[2020-02-09] MEDS: Gabapentin 300 MG CAP PO SCH ×3 (08:31→21:55)
[2020-02-09] MEDS: Lisinopril 2.5 MG TAB PO SCH (08:31)
[2020-02-09] MEDS: Carvedilol 6.25 MG TAB PO SCH ×2 (08:31→17:00)
[2020-02-09] MEDS: Aspirin 81 mg Enteric Coated Tablet PO SCH (08:31)
[2020-02-09] MEDS: Polyethylene Glycol 3350 17 GM Packet PO SCH (08:32)
[2020-02-09] MEDS: HYDROcodone/Acetaminophen 5/325 mg Tablet PO PRN (08:48)
--- NOTE | 2020-02-09 09:15 | PRG ---
DATE OF SERVICE: 02/09/2020 SUBJECTIVE: Mr. Kathleen is doing well. No current complaints. No further episodes of atrial flutter or fibrillation. OBJECTIVE: VITAL SIGNS: Blood pressure 145/63, pulse 80, and respirations 20. LUNGS: Clear to auscultation. HEART: Regular rate and rhythm. ABDOMEN: Soft, nontender, and nondistended. EXTREMITIES: No edema. PERTINENT LABORATORY DATA: Hemoglobin 9.1 and hematocrit 28.4. IMPRESSION: 1. Coronary artery disease. 2. Status post bypass surgery. 3. Infected pseudoaneurysm. 4. Transient atrial fibrillation/flutter. RECOMMENDATIONS: 1. Add a 3-week event recorder. 2. Continue Coreg 6.25 mg one p.o. b.i.d. in addition to atorvastatin, aspirin, and lisinopril. Otherwise, I have no further recommendations. Job ID: [id number]
--- NOTE | 2020-02-09 14:02 | PDOC.HOSPP ---
- Subjective Encounter Date: 02/09/20 Encounter Time: 10:00 Subjective: Patient seen for follow-up regarding bacteremia. He denies any chest pain or shortness of breath. - Objective Vital Signs & Weight: Vital Signs (12 hours) Temp Pulse Pulse Pulse Resp BP BP 02/09/20 11:23 98 F 132 H 16 02/09/20 10:51 86 95 123/58 L 02/09/20 08:31 80 115/57 L 02/09/20 07:46 97.9 F 80 18 02/09/20 05:02 98.4 F 83 16 BP BP Pulse Ox Pulse Ox Pulse Ox 02/09/20 11:23 106/64 93 L 02/09/20 10:51 120/73 97 94 L 02/09/20 08:31 02/09/20 07:46 145/63 H 94 L 02/09/20 05:02 133/66 96 Weight Admit Weight 193 lb 5.526 oz Weight 203 lb 2 oz Most Recent Monitor Data Heart Rate from ECG 90 NIBP 112/68 NIBP BP-Mean 82 Respiration from ECG 22 SpO2 95 I&O: 02/08/20 02/09/20 02/10/20 06:59 06:59 06:59 Intake Total 1570 2120 Output Total 1685 1960 Balance -115 160 Result Diagrams: 02/08/20 00:17 02/08/20 00:17 Additional Labs: Accuchecks 02/09/20 02/09/20 02/08/20 10:51 05:43 20:45 POC Glucose 184 H 155 H 198 H 02/08/20 02/08/20 18:40 11:10 POC Glucose 183 H 183 H I reviewed patient's labs and MAR EKG Reviewed by me: Yes (Telemetry: Normal sinus rhythm) Hospitalist ROS - Review of Systems Cardiovascular: reports: edema. denies: chest pain, palpitations, orthopnea, paroxysmal noc. dyspnea, light headedness Gastrointestinal: denies: nausea, vomiting, abdominal pain, diarrhea, constipation, melena, hematochezia - Medication Medications: Active Medications Generic Name Dose Route Start Last Admin Trade Name Freq PRN Reason Stop Dose Admin Hydrocodone Bitart/Acetaminophen 1 tab 02/02/20 12:53 02/09/20 08:48 Hydrocodone/Acetaminophen 5/325 Mg Tablet PO 1 tab Q4H PRN Administration Moderate Pain (4-6) Hydrocodone Bitart/Acetaminophen 2 tab 02/02/20 12:53 02/07/20 11:54 Hydrocodone/Acetaminophen 5/325 Mg Tablet PO 2 tab Q4H PRN Administration Severe Pain (7-10) Al Hydroxide/Mg Hydroxide 30 ml 02/03/20 10:37 02/07/20 21:27 Mag-Al 1200 Mg/1200 Mg/30 Ml Udcup PO 30 ml Q4H PRN Administration Indigestion Aspirin 81 mg 02/07/20 09:00 02/09/20 08:31 Aspirin 81 Mg Enteric Coated Tablet PO 81 mg DAILY ARI Administration Atorvastatin Calcium 40 mg 02/03/20 21:00 02/08/20 20:14 Atorvastatin Calcium 40 Mg Tab PO 40 mg HS ARI Administration Carvedilol 6.25 mg 02/09/20 08:00 02/09/20 08:31 Carvedilol 6.25 Mg Tab PO 6.25 mg BID-WM ARI Administration Diphenhydramine HCl 25 mg 02/03/20 10:37 02/07/20 21:27 Diphenhydramine 25 Mg Cap PO 25 mg Q6H PRN Administration Itching & Insomnia or Danielito Jason Furosemide 80 mg 02/07/20 07:30 02/09/20 08:31 Furosemide 80 Mg Tab PO 80 mg DAILY-AC ARI Administration Gabapentin 300 mg 02/04/20 15:00 02/09/20 08:31 Gabapentin 300 Mg Cap PO 300 mg TID ARI Administration Cefazolin Sodium/Dextrose 2 gm 50 mls @ 100 mls/hr 02/07/20 22:00 02/09/20 05:06 / Device IVPB 50 mls Q8HR ARI Administration Insulin Human Regular 0 units 02/03/20 10:45 02/09/20 06:29 Insulin Regular 300 Units/3 Ml Vial SC 3 unit Q4H PRN Administration POST OP SLIDING SCALE Protocol Lisinopril 2.5 mg 02/07/20 09:00 02/09/20 08:31 Lisinopril 2.5 Mg Tab PO 2.5 mg DAILY ARI Administration Metformin HCl 500 mg 02/05/20 17:00 02/09/20 08:31 Metformin 500 Mg Tab PO 500 mg BID-WM ARI Administration Polyethylene Glycol 17 gm 02/03/20 09:00 02/09/20 08:32 Polyethylene Glycol 3350 17 Gm Packet PO Not Given DAILY ARI Potassium Chloride 20 meq 02/05/20 08:00 02/09/20 08:31 Potassium Chloride 20 Meq Packet PO 20 meq QAM-WM ARI Administration Sodium Chloride 10 ml 02/07/20 09:00 02/09/20 08:32 Flush - Normal Saline 10 Ml Syringe IVF 10 ml Q12HR ARI Administration - Exam General - other findings: Obese Eye: anicteric sclera ENT: moist mucosa Neck: supple Heart: RRR Respiratory: CTAB Gastrointestinal: soft Extremities: 2+ LE edema Skin: no rashes Psychiatric: normal affect Hosp A/P - Plan -Assessment (1) MSSA bacteremia Code(s): R78.81 - BACTEREMIA; B95.61 - METHICILLIN SUSCEP STAPH INFCT CAUSING DIS CLASSD ELSWHR Status: Acute (2) atrial flutter Status: Acute (3) CAD (coronary artery disease) Code(s): I25.10 - ATHSCL HEART DISEASE OF [place] CORONARY ARTERY W/O ANG PCTRS Status: Acute Qualifiers: Coronary Disease-Associated Artery/Lesion type: bypass graft [place] vs. transplanted heart: [place] heart (4) Diabetes type 2, controlled Code(s): E11.9 - TYPE 2 DIABETES MELLITUS WITHOUT COMPLICATIONS Status: Chronic Qualifiers: Diabetes mellitus assisted insulin use: with assisted use (5) Chronic CHF Code(s): I50.9 - HEART FAILURE, UNSPECIFIED Status: Chronic Qualifiers: Heart failure type: combined systolic and diastolic Qualified Code(s): I50.42 - Chronic combined systolic (congestive) and diastolic (congestive) heart failure (6) Dyslipidemia Code(s): E78.5 - HYPERLIPIDEMIA, UNSPECIFIED Status: Chronic (7) Hypertension Code(s): I10 - ESSENTIAL (PRIMARY) HYPERTENSION Status: Chronic Qualifiers: (8) Neuropathy Code(s): G62.9 - POLYNEUROPATHY, UNSPECIFIED Status: Chronic - Plan Patient is on oral Cardizem, and normal sinus rhythm. Continue IV Ancef. Patient has PICC line, discontinue central line. Patient had coronary artery bypass graft x3 during this hospitalization. Reasonable control of blood sugars. continue cardiac rehab Plan is for patient to be discharged home after last dose of IV antibiotic on Wednesday, to follow-up with infectious diseases infusion clinic on Wednesday.
[2020-02-09] MEDS: Atorvastatin Calcium 40 MG TAB PO SCH (21:55)
[2020-02-10] MEDS: CEFAZOLIN 2 GM in Premix Bag 1 BAG IVPB SCH ×3 (05:39→22:25)
[2020-02-10] MEDS: Furosemide 80 MG TAB PO SCH (08:46)
[2020-02-10] MEDS: Gabapentin 300 MG CAP PO SCH ×3 (09:17→21:41)
[2020-02-10] MEDS: Carvedilol 6.25 MG TAB PO SCH ×2 (09:18→17:50)
[2020-02-10] MEDS: metFORMIN 500 MG TAB PO SCH ×2 (09:18→17:50)
[2020-02-10] MEDS: Aspirin 81 mg Enteric Coated Tablet PO SCH (09:18)
[2020-02-10] MEDS: Lisinopril 2.5 MG TAB PO SCH (09:18)
[2020-02-10] MEDS: Polyethylene Glycol 3350 17 GM Packet PO SCH (10:47)
--- NOTE | 2020-02-10 11:09 | PDOC.CPN ---
- Subjective Date: 02/10/20 Time: 10:30 Interval history: Feeling good overall. Still c/o edema to feet. Up walking regularly. - Review of Systems General: denies: fever/chills, weight/appetite/sleep changes, night sweats, fatigue Respiratory: denies: cough, congestion, shortness of breath, exercise intolerance Cardiovascular: denies: chest pain, palpitation, edema, paroxysmal nocturnal dyspnea, orthopnea Gastrointestinal: denies: nausea, vomiting, diarrhea, constipation, abd pain, GI bleeding Musculoskeletal: denies: pain, tenderness, stiffness, swelling, arthritis/arthralgias Neurological: denies: numbness, syncope, seizure, weakness - Objective Allergies/Adverse Reactions: Allergies Allergy/AdvReac Type Severity Reaction Status Date / Time No Known Drug Allergies Allergy Verified 01/28/20 12:00 Visit Medications: Current Medications Acetaminophen (Acetaminophen 325 Mg Tab) 650 mg PO Q6H PRN PRN Reason: Headache/Fever Or Mild Pain Last Admin: 02/10/20 09:17 Dose: 650 mg Documented by: Hydrocodone Bitart/Acetaminophen (Hydrocodone/Acetaminophen 5/325 Mg Tablet) 1 tab PO Q4H PRN PRN Reason: Moderate Pain (4-6) Last Admin: 02/09/20 08:48 Dose: 1 tab Documented by: Hydrocodone Bitart/Acetaminophen (Hydrocodone/Acetaminophen 5/325 Mg Tablet) 2 tab PO Q4H PRN PRN Reason: Severe Pain (7-10) Last Admin: 02/07/20 11:54 Dose: 2 tab Documented by: Al Hydroxide/Mg Hydroxide (Mag-Al 1200 Mg/1200 Mg/30 Ml Udcup) 30 ml PO Q4H PRN PRN Reason: Indigestion Last Admin: 02/07/20 21:27 Dose: 30 ml Documented by: Albuterol/Ipratropium (Ipratropium/Albuterol Sulfate 3 Ml Neb) 3 ml NEB [id number] PRN PRN Reason: SOB Aspirin (Aspirin 81 Mg Enteric Coated Tablet) 81 mg PO DAILY [facility] Last Admin: 02/10/20 09:18 Dose: 81 mg Documented by: Atorvastatin Calcium (Atorvastatin Calcium 40 Mg Tab) 40 mg PO HS [facility] Last Admin: 02/09/20 21:55 Dose: 40 mg Documented by: Bisacodyl (Bisacodyl 5 Mg Tab) 10 mg PO Q12H PRN PRN Reason: Constipation Bisacodyl (Bisacodyl 10 Mg Supp) 10 mg TN Q12H PRN PRN Reason: Constipation Carvedilol (Carvedilol 6.25 Mg Tab) 6.25 mg PO BID-[facility] Last Admin: 02/10/20 09:18 Dose: 6.25 mg Documented by: Dextrose/Water (Dextrose 50% Abboject 50 Ml Syringe) 25 gm SLOW IVP PRN PRN PRN Reason: PER HYPOGLYCEMIC PROTOCOL Diphenhydramine HCl (Diphenhydramine 25 Mg Cap) 25 mg PO Q6H PRN PRN Reason: Itching & Insomnia or Danielito Jason Last Admin: 02/07/20 21:27 Dose: 25 mg Documented by: Furosemide (Furosemide 80 Mg Tab) 80 mg PO DAILY-[facility] Last Admin: 02/10/20 08:46 Dose: 80 mg Documented by: Gabapentin (Gabapentin 300 Mg Cap) 300 mg PO TID [facility] Last Admin: 02/10/20 09:17 Dose: 300 mg Documented by: Glucagon (Glucagon 1 Mg/Ml Vial) 1 mg SC PRN PRN PRN Reason: PER HYPOGLYCEMIC PROTOCOL Guaifenesin/Dextromethorphan (Guaifenesin Dm 100-10/5 Ml Udcup) 15 ml PO Q4H TN N PRN Reason: Cough Hydralazine HCl (Hydralazine 20 Mg/Ml Vial) 10 mg SLOW IVP Q6H PRN PRN Reason: To Maintain SBP< 140mmHG Dextrose/Water (D5w) 1,000 mls @ 0 mls/hr IV INF PRN PRN Reason: PRN HYPOGLYCEMIC PROTOCOL Cefazolin Sodium/Dextrose 2 gm (/ Device) 50 mls @ 100 mls/hr IVPB Q8HR [facility] Last Admin: 02/10/20 05:39 Dose: 50 mls Documented by: Insulin Human Regular (Insulin Regular 300 Units/3 Ml Vial) 0 units SC Q4H PRN; Protocol PRN Reason: POST OP SLIDING SCALE Last Admin: 02/09/20 22:17 Dose: 4 unit Documented by: Lisinopril (Lisinopril 2.5 Mg Tab) 2.5 mg PO DAILY [facility] Last Admin: 02/10/20 09:18 Dose: 2.5 mg Documented by: Magnesium Hydroxide (Milk Of Magnesia 30 Ml Udcup) 30 ml PO Q12H PRN PRN Reason: Constipation Metformin HCl (Metformin 500 Mg Tab) 500 mg PO BID-[facility] Last Admin: 02/10/20 09:18 Dose: 500 mg Documented by: Mineral Oil (Mineral Oil Enema) 133 ml TN DAILYPRN PRN PRN Reason: Constipation Nitroglycerin (Nitroglycerin 0.4 Mg Tab (25 Tab Bottle)) 0.4 mg SL Q5MIN PRN PRN Reason: Chest Pain Ondansetron HCl (Ondansetron Pf 4 Mg/2 Ml Vial) 4 mg IVP Q6H PRN PRN Reason: Nausea/Vomiting Polyethylene Glycol (Polyethylene Glycol 3350 17 Gm Packet) 17 gm PO DAILY [facility] Last Admin: 02/10/20 10:47 Dose: Not Given Documented by: Potassium Chloride (Potassium Chloride 20 Meq Packet) 20 meq PO QAM-[facility] Last Admin: 02/10/20 09:16 Dose: 20 meq Documented by: Sodium Chloride (Flush - Normal Saline 10 Ml Syringe) 10 ml IVF Q12HR [facility] Last Admin: 02/10/20 10:47 Dose: 10 ml Documented by: Sodium Chloride (Flush - Normal Saline 10 Ml Syringe) 10 ml IVF PRN PRN PRN Reason: Saline Flush Zolpidem Tartrate (Zolpidem Tartrate 5 Mg Tab) 5 mg PO HSPRN PRN PRN Reason: Insomnia Vital Signs & Weight: Vital Signs Temp Pulse Resp BP BP Pulse Ox 02/10/20 08:07 96 02/10/20 08:05 98.9 F 79 16 154/71 H 96 02/10/20 04:00 98.6 F 93 20 129/61 93 L Admit Weight 193 lb 5.526 oz Weight 201 lb 3.2 oz - Physical Exam General: alert & oriented x3, appears well, no apparent distress HEENT: mucus membranes moist Neck: supple neck Cardiac: regular rate and rhythm Lungs: clear to auscultation Neuro: grossly intact Abdomen: unremarkable, soft Extremities: 2+ LE edema Skin: clear Musculoskeletal: no pain - Labs Result Diagrams: 02/08/20 00:17 02/08/20 00:17 Troponin/CKMB CK-MB (CK-2) 1.2 ng/mL (0-6.6) 02/06/20 02:47 Troponin I 1.328 ng/mL (< 0.028) H* 02/06/20 02:47 - Assessment/Plan Assessment/Plan: 1. s/p CABG 2. Infected pseudo 3. Paroxysmal AF Continue diuresis. Continue bblocker for AF.
[2020-02-10] MEDS ORDERED: Metolazone 2.5 MG TAB PO SCH ×2 (11:15→11:30)
[2020-02-10] MEDS: Insulin Regular 300 UNITS/3 ML VIAL SC PRN ×2 (11:20→21:43)
--- NOTE | 2020-02-10 12:03 | PRG ---
DATE OF SERVICE: 02/10/2020 The patient continues to do well, ambulating in the halls without difficulty. His chest incision is looking good and he still has some edema in his legs and is maintained on the diuretic. The photograph of his groin wound incision is clean, red, and granulating and looks good and I think we can stop the wound VAC at the time of discharge on Wednesday and he can treat this with dressing changes himself, showering daily, and then putting a new dressing on. Otherwise, no changes at this point. Job ID: [id number]
--- NOTE | 2020-02-10 17:52 | PDOC.HOSPP ---
- Subjective Encounter Date: 02/10/20 Encounter Time: 12:00 Subjective: Patient seen for follow-up for bacteremia. He denies any new complaints today. - Objective Vital Signs & Weight: Vital Signs (12 hours) Temp Pulse Pulse Pulse Resp BP BP 02/10/20 15:10 98.4 F 80 17 02/10/20 13:40 82 76 123/60 116/56 L 02/10/20 13:02 02/10/20 11:10 98.0 F 77 18 02/10/20 09:35 96 85 128/58 L 121/68 02/10/20 08:07 02/10/20 08:05 98.9 F 79 16 BP BP Pulse Ox Pulse Ox Pulse Ox 02/10/20 15:10 115/66 96 02/10/20 13:40 97 96 02/10/20 13:02 155/70 H 02/10/20 11:10 117/64 95 02/10/20 09:35 96 96 02/10/20 08:07 96 02/10/20 08:05 154/71 H 96 Weight Admit Weight 193 lb 5.526 oz Weight 201 lb 3.2 oz Most Recent Monitor Data Heart Rate from ECG 90 NIBP 112/68 NIBP BP-Mean 82 Respiration from ECG 22 SpO2 95 I&O: 02/09/20 02/10/20 02/11/20 06:59 06:59 06:59 Intake Total 2120 984 Output Total 1960 2061 Balance 160 -1077 Result Diagrams: 02/08/20 00:17 02/08/20 00:17 Additional Labs: Accuchecks 02/10/20 02/09/20 10:49 20:07 POC Glucose 225 H 195 H I reviewed patient's labs and MAR EKG Reviewed by me: Yes (Telemetry: NSR) Hospitalist ROS - Review of Systems Cardiovascular: reports: edema Genitourinary: denies: dysuria, frequency, incontinence, hematuria, retention Skin: denies: rash, lesions, dg, bruising - Medication Medications: Active Medications Generic Name Dose Route Start Last Admin Trade Name Freq PRN Reason Stop Dose Admin Acetaminophen 650 mg 02/02/20 12:53 02/10/20 09:17 Acetaminophen 325 Mg Tab PO 650 mg Q6H PRN Administration Headache/Fever Or Mild Pain Hydrocodone Bitart/Acetaminophen 1 tab 02/02/20 12:53 02/09/20 08:48 Hydrocodone/Acetaminophen 5/325 Mg Tablet PO 1 tab Q4H PRN Administration Moderate Pain (4-6) Hydrocodone Bitart/Acetaminophen 2 tab 02/02/20 12:53 02/07/20 11:54 Hydrocodone/Acetaminophen 5/325 Mg Tablet PO 2 tab Q4H PRN Administration Severe Pain (7-10) Al Hydroxide/Mg Hydroxide 30 ml 02/03/20 10:37 02/07/20 21:27 Mag-Al 1200 Mg/1200 Mg/30 Ml Udcup PO 30 ml Q4H PRN Administration Indigestion Aspirin 81 mg 02/07/20 09:00 02/10/20 09:18 Aspirin 81 Mg Enteric Coated Tablet PO 81 mg DAILY ARI Administration Atorvastatin Calcium 40 mg 02/03/20 21:00 02/09/20 21:55 Atorvastatin Calcium 40 Mg Tab PO 40 mg HS ARI Administration Carvedilol 6.25 mg 02/09/20 08:00 02/10/20 09:18 Carvedilol 6.25 Mg Tab PO 6.25 mg BID-WM ARI Administration Diphenhydramine HCl 25 mg 02/03/20 10:37 02/07/20 21:27 Diphenhydramine 25 Mg Cap PO 25 mg Q6H PRN Administration Itching & Insomnia or Danielito Jason Furosemide 80 mg 02/07/20 07:30 02/10/20 08:46 Furosemide 80 Mg Tab PO 80 mg DAILY-AC ARI Administration Gabapentin 300 mg 02/04/20 15:00 02/10/20 15:12 Gabapentin 300 Mg Cap PO 300 mg TID ARI Administration Cefazolin Sodium/Dextrose 2 gm 50 mls @ 100 mls/hr 02/07/20 22:00 02/10/20 15:12 / Device IVPB 50 mls Q8HR ARI Administration Insulin Human Regular 0 units 02/03/20 10:45 02/10/20 11:20 Insulin Regular 300 Units/3 Ml Vial SC 6 unit Q4H PRN Administration POST OP SLIDING SCALE Protocol Lisinopril 2.5 mg 02/07/20 09:00 02/10/20 09:18 Lisinopril 2.5 Mg Tab PO 2.5 mg DAILY ARI Administration Metformin HCl 500 mg 02/05/20 17:00 02/10/20 09:18 Metformin 500 Mg Tab PO 500 mg BID-WM ARI Administration Polyethylene Glycol 17 gm 02/03/20 09:00 02/10/20 10:47 Polyethylene Glycol 3350 17 Gm Packet PO Not Given DAILY ARI Potassium Chloride 20 meq 02/05/20 08:00 02/10/20 09:16 Potassium Chloride 20 Meq Packet PO 20 meq QAM-WM ARI Administration Sodium Chloride 10 ml 02/07/20 09:00 02/10/20 10:47 Flush - Normal Saline 10 Ml Syringe IVF 10 ml Q12HR ARI Administration - Exam General Appearance: awake alert Eye: anicteric sclera ENT: moist mucosa Neck: supple Heart: RRR Respiratory: CTAB Gastrointestinal: soft, non-tender Extremities: 2+ LE edema Skin: no rashes Psychiatric: normal affect, normal behavior Hosp A/P - Plan -Assessment (1) MSSA bacteremia Code(s): R78.81 - BACTEREMIA; B95.61 - METHICILLIN SUSCEP STAPH INFCT CAUSING DIS CLASSD ELSWHR Status: Acute (2) atrial flutter Status: Acute (3) CAD (coronary artery disease) Code(s): I25.10 - ATHSCL HEART DISEASE OF [place] CORONARY ARTERY W/O ANG PCTRS Status: Acute Qualifiers: Coronary Disease-Associated Artery/Lesion type: bypass graft [place] vs. transplanted heart: [place] heart (4) Diabetes type 2, controlled Code(s): E11.9 - TYPE 2 DIABETES MELLITUS WITHOUT COMPLICATIONS Status: Chronic Qualifiers: Diabetes mellitus fpc insulin use: with fpc use (5) Chronic CHF Code(s): I50.9 - HEART FAILURE, UNSPECIFIED Status: Chronic Qualifiers: Heart failure type: combined systolic and diastolic Qualified Code(s): I50.42 - Chronic combined systolic (congestive) and diastolic (congestive) heart failure (6) Dyslipidemia Code(s): E78.5 - HYPERLIPIDEMIA, UNSPECIFIED Status: Chronic (7) Hypertension Code(s): I10 - ESSENTIAL (PRIMARY) HYPERTENSION Status: Chronic Qualifiers: (8) Neuropathy Code(s): G62.9 - POLYNEUROPATHY, UNSPECIFIED Status: Chronic - Plan Continue oral Cardizem. Continue IV Ancef. PICC line placed during this hospitalization. Patient had coronary artery bypass graft x3 during this hospitalization. Reasonable control of blood sugars. continue cardiac rehab Plan is for patient to be discharged home after last dose of IV antibiotic tomorrow, to follow-up with infectious diseases infusion clinic on Wednesday.
[2020-02-10] MEDS: Mag-Al 1200 mg/1200 mg/30 ML UDCUP PO PRN (17:53)
[2020-02-10] MEDS: Atorvastatin Calcium 40 MG TAB PO SCH (21:41)
[2020-02-11] MEDS: Insulin Regular 300 UNITS/3 ML VIAL SC PRN ×2 (06:31→11:46)
[2020-02-11] MEDS: CEFAZOLIN 2 GM in Premix Bag 1 BAG IVPB SCH ×3 (06:34→21:40)
[2020-02-11] MEDS: Furosemide 80 MG TAB PO SCH (06:34)
[2020-02-11] MEDS: Lisinopril 2.5 MG TAB PO SCH (09:43)
[2020-02-11] MEDS: Gabapentin 300 MG CAP PO SCH ×3 (09:43→21:42)
[2020-02-11] MEDS: Metolazone 2.5 MG TAB PO SCH (09:43)
[2020-02-11] MEDS: Apixaban 5 MG TAB PO SCH ×2 (09:44→21:42)
[2020-02-11] MEDS: Carvedilol 6.25 MG TAB PO SCH ×2 (09:44→17:26)
[2020-02-11] MEDS: metFORMIN 500 MG TAB PO SCH ×2 (09:44→17:26)
[2020-02-11] MEDS: Aspirin 81 mg Enteric Coated Tablet PO SCH (09:44)
[2020-02-11] MEDS: Polyethylene Glycol 3350 17 GM Packet PO SCH (09:44)
--- NOTE | 2020-02-11 11:47 | PDOC.CPN ---
- Subjective Date: 02/11/20 Time: 11:25 Interval history: Patient with no new complaints. Still edematous. - Review of Systems General: denies: fever/chills, weight/appetite/sleep changes, night sweats, fatigue Respiratory: denies: cough, congestion, shortness of breath, exercise intolerance Cardiovascular: reports: edema. denies: chest pain, palpitation, paroxysmal nocturnal dyspnea, orthopnea Gastrointestinal: denies: nausea, vomiting, diarrhea, constipation, abd pain, GI bleeding Musculoskeletal: denies: pain, tenderness, stiffness, arthritis/arthralgias Neurological: denies: numbness, syncope, seizure, weakness - Objective Allergies/Adverse Reactions: Allergies Allergy/AdvReac Type Severity Reaction Status Date / Time No Known Drug Allergies Allergy Verified 01/28/20 12:00 Visit Medications: Current Medications Acetaminophen (Acetaminophen 325 Mg Tab) 650 mg PO Q6H PRN PRN Reason: Headache/Fever Or Mild Pain Last Admin: 02/10/20 09:17 Dose: 650 mg Documented by: Hydrocodone Bitart/Acetaminophen (Hydrocodone/Acetaminophen 5/325 Mg Tablet) 1 tab PO Q4H PRN PRN Reason: Moderate Pain (4-6) Last Admin: 02/09/20 08:48 Dose: 1 tab Documented by: Hydrocodone Bitart/Acetaminophen (Hydrocodone/Acetaminophen 5/325 Mg Tablet) 2 tab PO Q4H PRN PRN Reason: Severe Pain (7-10) Last Admin: 02/07/20 11:54 Dose: 2 tab Documented by: Al Hydroxide/Mg Hydroxide (Mag-Al 1200 Mg/1200 Mg/30 Ml Udcup) 30 ml PO Q4H PRN PRN Reason: Indigestion Last Admin: 02/10/20 17:53 Dose: 30 ml Documented by: Albuterol/Ipratropium (Ipratropium/Albuterol Sulfate 3 Ml Neb) 3 ml NEB [id number] PRN PRN Reason: SOB Apixaban (Apixaban 5 Mg Tab) 5 mg PO BID [facility] Last Admin: 02/11/20 09:44 Dose: 5 mg Documented by: Aspirin (Aspirin 81 Mg Enteric Coated Tablet) 81 mg PO DAILY [facility] Last Admin: 02/11/20 09:44 Dose: 81 mg Documented by: Atorvastatin Calcium (Atorvastatin Calcium 40 Mg Tab) 40 mg PO HS [facility] Last Admin: 02/10/20 21:41 Dose: 40 mg Documented by: Bisacodyl (Bisacodyl 5 Mg Tab) 10 mg PO Q12H PRN PRN Reason: Constipation Bisacodyl (Bisacodyl 10 Mg Supp) 10 mg NV Q12H PRN PRN Reason: Constipation Carvedilol (Carvedilol 6.25 Mg Tab) 6.25 mg PO BID-[facility] Last Admin: 02/11/20 09:44 Dose: 6.25 mg Documented by: Dextrose/Water (Dextrose 50% Abboject 50 Ml Syringe) 25 gm SLOW IVP PRN PRN PRN Reason: PER HYPOGLYCEMIC PROTOCOL Diphenhydramine HCl (Diphenhydramine 25 Mg Cap) 25 mg PO Q6H PRN PRN Reason: Itching & Insomnia or Danielito Jason Last Admin: 02/07/20 21:27 Dose: 25 mg Documented by: Furosemide (Furosemide 80 Mg Tab) 80 mg PO DAILY-[facility] Last Admin: 02/11/20 06:34 Dose: 80 mg Documented by: Gabapentin (Gabapentin 300 Mg Cap) 300 mg PO TID [facility] Last Admin: 02/11/20 09:43 Dose: 300 mg Documented by: Glucagon (Glucagon 1 Mg/Ml Vial) 1 mg SC PRN PRN PRN Reason: PER HYPOGLYCEMIC PROTOCOL Guaifenesin/Dextromethorphan (Guaifenesin Dm 100-10/5 Ml Udcup) 15 ml PO Q4H PRN PRN Reason: Cough Hydralazine HCl (Hydralazine 20 Mg/Ml Vial) 10 mg SLOW IVP Q6H PRN PRN Reason: To Maintain SBP< 140mmHG Dextrose/Water (D5w) 1,000 mls @ 0 mls/hr IV INF PRN PRN Reason: PRN HYPOGLYCEMIC PROTOCOL Cefazolin Sodium/Dextrose 2 gm (/ Device) 50 mls @ 100 mls/hr IVPB Q8HR [facility] Last Admin: 02/11/20 06:34 Dose: 50 mls Documented by: Insulin Human Regular (Insulin Regular 300 Units/3 Ml Vial) 0 units SC Q4H PRN; Protocol PRN Reason: POST OP SLIDING SCALE Last Admin: 02/11/20 06:31 Dose: 2 unit Documented by: Lisinopril (Lisinopril 2.5 Mg Tab) 2.5 mg PO DAILY [facility] Last Admin: 02/11/20 09:43 Dose: 2.5 mg Documented by: Magnesium Hydroxide (Milk Of Magnesia 30 Ml Udcup) 30 ml PO Q12H PRN PRN Reason: Constipation Metformin HCl (Metformin 500 Mg Tab) 500 mg PO BID-[facility] Last Admin: 02/11/20 09:44 Dose: 500 mg Documented by: Metolazone (Metolazone 2.5 Mg Tab) 2.5 mg PO 0830 [facility] Last Admin: 02/11/20 09:43 Dose: 2.5 mg Documented by: Mineral Oil (Mineral Oil Enema) 133 ml [place] DAILYPRN PRN PRN Reason: Constipation Nitroglycerin (Nitroglycerin 0.4 Mg Tab (25 Tab Bottle)) 0.4 mg SL Q5MIN PRN PRN Reason: Chest Pain Ondansetron HCl (Ondansetron Pf 4 Mg/2 Ml Vial) 4 mg IVP Q6H PRN PRN Reason: Nausea/Vomiting Polyethylene Glycol (Polyethylene Glycol 3350 17 Gm Packet) 17 gm PO DAILY [facility] Last Admin: 02/11/20 09:44 Dose: Not Given Documented by: Potassium Chloride (Potassium Chloride 20 Meq Packet) 20 meq PO QAM-[facility] Last Admin: 02/11/20 09:43 Dose: 20 meq Documented by: Sodium Chloride (Flush - Normal Saline 10 Ml Syringe) 10 ml IVF Q12HR [facility] Last Admin: 02/11/20 09:44 Dose: 10 ml Documented by: Sodium Chloride (Flush - Normal Saline 10 Ml Syringe) 10 ml IVF PRN PRN PRN Reason: Saline Flush Zolpidem Tartrate (Zolpidem Tartrate 5 Mg Tab) 5 mg PO HSPRN PRN PRN Reason: Insomnia Vital Signs & Weight: Vital Signs Temp Pulse Pulse Pulse Resp BP BP 02/11/20 09:44 130/65 02/11/20 09:43 80 130/65 02/11/20 09:15 88 82 123/58 L 02/11/20 08:00 02/11/20 07:30 99 F 80 17 02/11/20 04:00 98.9 F 79 16 BP BP BP Pulse Ox Pulse Ox Pulse Ox 02/11/20 09:44 02/11/20 09:43 02/11/20 09:15 107/59 L 97 95 02/11/20 08:00 94 L 02/11/20 07:30 130/65 94 L 02/11/20 04:00 114/58 L 94 L Admit Weight 193 lb 5.526 oz Weight 200 lb - Physical Exam General: alert & oriented x3, appears well, no apparent distress HEENT: mucus membranes moist Neck: supple neck Cardiac: regular rate and rhythm Lungs: normal breath sounds, no wheeze, rales, rhonchi Neuro: grossly intact Abdomen: soft Extremities: no cyanosis, 1+ LE edema Skin: clear - Labs Result Diagrams: 02/08/20 00:17 02/08/20 00:17 Troponin/CKMB CK-MB (CK-2) 1.2 ng/mL (0-6.6) 02/06/20 02:47 Troponin I 1.328 ng/mL (< 0.028) H* 02/06/20 02:47 - Assessment/Plan Assessment/Plan: 1. s/p CABG 2. Infected pseudo 3. Paroxysmal AF Continue diuresis. No AF in last 24 hours. Continue antibiotics and bblocker. No on Eliquis per RG. Ordered zaroxolyn yesterday, but apparently cancelled by pharmacist and changed to today. Will evaluate diuresis now that he has received.
--- NOTE | 2020-02-11 15:47 | PDOC.HOSPP ---
- Subjective Encounter Date: 02/11/20 Encounter Time: 15:46 Subjective: Patient was seen for follow-up for MSSA bacteremia. He denies any chest pain, shortness of breath, fevers or chills. - Objective Vital Signs & Weight: Vital Signs (12 hours) Temp Pulse Pulse Pulse Resp BP BP 02/11/20 09:44 130/65 02/11/20 09:43 80 130/65 02/11/20 09:15 88 82 123/58 L 02/11/20 08:00 02/11/20 07:30 99 F 80 17 02/11/20 04:00 98.9 F 79 16 BP BP BP Pulse Ox Pulse Ox Pulse Ox 02/11/20 09:44 02/11/20 09:43 02/11/20 09:15 107/59 L 97 95 02/11/20 08:00 94 L 02/11/20 07:30 130/65 94 L 02/11/20 04:00 114/58 L 94 L Weight Admit Weight 193 lb 5.526 oz Weight 200 lb Most Recent Monitor Data Heart Rate from ECG 90 NIBP 112/68 NIBP BP-Mean 82 Respiration from ECG 22 SpO2 95 I&O: 02/10/20 02/11/20 02/12/20 06:59 06:59 06:59 Intake Total 984 1220 Output Total 9946 1325 Balance -1077 -105 Result Diagrams: 02/08/20 00:17 02/08/20 00:17 Additional Labs: Accuchecks 02/11/20 02/11/20 02/10/20 11:05 05:58 20:31 POC Glucose 202 H 127 H 214 H I reviewed patient's labs and MAR EKG Reviewed by me: Yes (Telemetry: Normal sinus rhythm) Hospitalist ROS - Review of Systems Gastrointestinal: denies: nausea, vomiting, abdominal pain, diarrhea, co nstipation, melena, hematochezia Neurological: denies: weakness, numbness, incoordination, change in speech, confusion, seizures - Medication Medications: Active Medications Generic Name Dose Route Start Last Admin Trade Name Freq PRN Reason Stop Dose Admin Acetaminophen 650 mg 02/02/20 12:53 02/10/20 09:17 Acetaminophen 325 Mg Tab PO 650 mg Q6H PRN Administration Headache/Fever Or Mild Pain Hydrocodone Bitart/Acetaminophen 1 tab 02/02/20 12:53 02/09/20 08:48 Hydrocodone/Acetaminophen 5/325 Mg Tablet PO 1 tab Q4H PRN Administration Moderate Pain (4-6) Hydrocodone Bitart/Acetaminophen 2 tab 02/02/20 12:53 02/07/20 11:54 Hydrocodone/Acetaminophen 5/325 Mg Tablet PO 2 tab Q4H PRN Administration Severe Pain (7-10) Al Hydroxide/Mg Hydroxide 30 ml 02/03/20 10:37 02/10/20 17:53 Mag-Al 1200 Mg/1200 Mg/30 Ml Udcup PO 30 ml Q4H PRN Administration Indigestion Apixaban 5 mg 02/11/20 09:00 02/11/20 09:44 Apixaban 5 Mg Tab PO 5 mg BID ARI Administration Aspirin 81 mg 02/07/20 09:00 02/11/20 09:44 Aspirin 81 Mg Enteric Coated Tablet PO 81 mg DAILY ARI Administration Atorvastatin Calcium 40 mg 02/03/20 21:00 02/10/20 21:41 Atorvastatin Calcium 40 Mg Tab PO 40 mg HS ARI Administration Carvedilol 6.25 mg 02/09/20 08:00 02/11/20 09:44 Carvedilol 6.25 Mg Tab PO 6.25 mg BID-WM ARI Administration Diphenhydramine HCl 25 mg 02/03/20 10:37 02/07/20 21:27 Diphenhydramine 25 Mg Cap PO 25 mg Q6H PRN Administration Itching & Insomnia or Danielito Jason Furosemide 80 mg 02/07/20 07:30 02/11/20 06:34 Furosemide 80 Mg Tab PO 80 mg DAILY-AC ARI Administration Gabapentin 300 mg 02/04/20 15:00 02/11/20 14:25 Gabapentin 300 Mg Cap PO 300 mg TID ARI Administration Cefazolin Sodium/Dextrose 2 gm 50 mls @ 100 mls/hr 02/07/20 22:00 02/11/20 14:25 / Device IVPB 50 mls Q8HR ARI Administration Insulin Human Regular 0 units 02/03/20 10:45 02/11/20 11:46 Insulin Regular 300 Units/3 Ml Vial SC 6 unit Q4H PRN Administration POST OP SLIDING SCALE Protocol Lisinopril 2.5 mg 02/07/20 09:00 02/11/20 09:43 Lisinopril 2.5 Mg Tab PO 2.5 mg DAILY ARI Administration Metformin HCl 500 mg 02/05/20 17:00 02/11/20 09:44 Metformin 500 Mg Tab PO 500 mg BID-WM ARI Administration Metolazone 2.5 mg 02/11/20 08:30 02/11/20 09:43 Metolazone 2.5 Mg Tab PO 2.5 mg 0830 ARI Administration Polyethylene Glycol 17 gm 02/03/20 09:00 02/11/20 09:44 Polyethylene Glycol 3350 17 Gm Packet PO Not Given DAILY [facility] Potassium Chloride 20 meq 02/05/20 08:00 02/11/20 09:43 Potassium Chloride 20 Meq Packet PO 20 meq QAM-WM ARI Administration Sodium Chloride 10 ml 02/07/20 09:00 02/11/20 09:44 Flush - Normal Saline 10 Ml Syringe IVF 10 ml Q12HR ARI Administration - Exam General - other findings: Obese Eye: anicteric sclera ENT: moist mucosa Neck: supple Heart: RRR Respiratory: CTAB Gastrointestinal: soft Extremities: no clubbing Skin: no rashes Skin - other findings: Wound as documented Psychiatric: normal affect, normal behavior Hosp A/P - Plan -Assessment (1) MSSA bacteremia Code(s): R78.81 - BACTEREMIA; B95.61 - METHICILLIN SUSCEP STAPH INFCT CAUSING DIS CLASSD ELSWHR Status: Acute (2) atrial flutter Status: Acute (3) CAD (coronary artery disease) Code(s): I25.10 - ATHSCL HEART DISEASE OF [place] CORONARY ARTERY W/O ANG PCTRS Status: Acute Qualifiers: Coronary Disease-Associated Artery/Lesion type: bypass graft [place] vs. tr ansplanted heart: [place] heart (4) Diabetes type 2, controlled Code(s): E11.9 - TYPE 2 DIABETES MELLITUS WITHOUT COMPLICATIONS Status: Chronic Qualifiers: Diabetes mellitus terminal operations supervisor insulin use: with terminal operations supervisor use (5) Chronic CHF Code(s): I50.9 - HEART FAILURE, UNSPECIFIED Status: Chronic Qualifiers: Heart failure type: combined systolic and diastolic Qualified Code(s): I50.42 - Chronic combined systolic (congestive) and diastolic (congestive) heart failure (6) Dyslipidemia Code(s): E78.5 - HYPERLIPIDEMIA, UNSPECIFIED Status: Chronic (7) Hypertension Code(s): I10 - ESSENTIAL (PRIMARY) HYPERTENSION Status: Chronic Qualifiers: (8) Neuropathy Code(s): G62.9 - POLYNEUROPATHY, UNSPECIFIED Status: Chronic - Plan Continue oral Cardizem. Continue IV Ancef through today, patient has appointment at infectious disease clinic tomorrow. PICC line in place. Patient had coronary artery bypass graft x3 during this hospitalization. Reasonable control of blood sugars. continue cardiac rehab Initial plan was for patient to be discharged home today after last dose of IV antibiotic. However, the dose is not due until 10 PM. Patient will be discharged in the morning.
[2020-02-11] MEDS: HYDROcodone/Acetaminophen 5/325 mg Tablet PO PRN (21:41)
[2020-02-11] MEDS: Atorvastatin Calcium 40 MG TAB PO SCH (21:42)
[2020-02-12] MEDS: CEFAZOLIN 2 GM in Premix Bag 1 BAG IVPB SCH (05:26)
[2020-02-12 07:04] VITALS: BP 147/70; TEMP 98.6
[2020-02-12] MEDS: Insulin Regular 300 UNITS/3 ML VIAL SC PRN (07:22)
[2020-02-12] MEDS: metFORMIN 500 MG TAB PO SCH (08:23)
[2020-02-12] MEDS: Furosemide 80 MG TAB PO SCH (08:23)
[2020-02-12] MEDS: Carvedilol 6.25 MG TAB PO SCH (08:23)
[2020-02-12] MEDS: Gabapentin 300 MG CAP PO SCH (08:24)
[2020-02-12] MEDS: Aspirin 81 mg Enteric Coated Tablet PO SCH (08:24)
[2020-02-12] MEDS: Apixaban 5 MG TAB PO SCH (08:24)
[2020-02-12] MEDS: Polyethylene Glycol 3350 17 GM Packet PO SCH (08:24)
[2020-02-12] MEDS: Metolazone 2.5 MG TAB PO SCH (08:24)
[2020-02-12] MEDS: Lisinopril 2.5 MG TAB PO SCH (08:24)
[2020-02-12 10:10] LABS: Anion Gap 14 mmol/L (10-20); BUN (Urea Nitrogen) 27 mg/dL (8.4-25.7); Calc. Creatinine Clearance 117 mL/min (70-130); Calcium 8.4 mg/dL (7.8-10.44); Carbon Dioxide 29 mmol/L (22-29); Chloride 97 mmol/L (98-107); Estimated GFR-MDRD 88; Glucose 226 mg/dL (70-105); Potassium 4.4 mmol/L (3.5-5.1); Sodium 136 mmol/L (136-145)
--- NOTE | 2020-02-13 02:02 | DIS ---
DATE OF ADMISSION: 01/28/2020 DATE OF DISCHARGE: 02/12/2020 PRIMARY CARE PROVIDER: Dr. Gianfranco Garduno. DISCHARGE DIAGNOSES: 1. Methicillin-susceptible Staphylococcus aureus bacteremia. 2. Coronary artery disease. 3. Paroxysmal atrial fibrillation. 4. Groin wound. 5. Hyponatremia. CONDITION OF PATIENT ON THE DAY OF DISCHARGE: Stable. I assessed Mr. Kathleen on the day of discharge. He denies any chest pain or shortness of breath. Vital signs are stable. S1 and S2 are heard, regular. Lungs are clear to auscultation bilaterally. CONSULTATIONS DURING THIS HOSPITALIZATION: Cardiovascular Surgery, Dr. Wu. Cardiology, Dr. Aquino. Infectious Disease, Dr. Stallworth. HOSPITAL COURSE: Mr. Kathleen is a pleasant 59-year-old gentleman, who was admitted to [facility] on January 28, 2020, for MSSA bacteremia. He was scheduled to have coronary artery bypass graft prior to admission. He was seen by Cardiovascular, Infectious Diseases, and Cardiology Services. In terms of MSSA bacteremia, it was felt to be secondary to an infected femoral catheter. 2D echocardiogram on January 28 showed left ventricular ejection fraction of 40% to 45% and moderate mitral regurgitation. MRI of the cervical spine did not show any evidence for diskitis or osteomyelitis. MRI of the thoracic spine did not show any evidence of diskitis or osteomyelitis or epidural abscess. MRI of the lumbar spine was also done and did not show any evidence of infection. On February 03, he underwent coronary artery bypass graft x3, right groin exploration, and repair of pseudoaneurysm. He was started on wound VAC. He was continued on intravenous antibiotics. He had PICC line placed. He is being discharged home for outpatient therapy with antibiotics at Infectious Disease Clinic. DISCHARGE MEDICATIONS: 1. Ancef 2 g every 8 hours intravenously. 2. Coreg 6.25 mg 2 times a day. 3. Aspirin 81 mg daily. 4. Apixaban 5 mg 2 times a day. 5. Potassium chloride 20 mEq daily. 6. Lasix 80 mg daily. 7. Lipitor 40 mg at bedtime. 8. Lisinopril 2.5 mg daily. 9. Tresiba FlexTouch as directed. 10. Metformin 500 mg 2 times a day. 11. Gabapentin 300 mg 3 times a day. DIET: Heart healthy, diabetic and low sodium. ACTIVITY: As tolerated. POST ACUTE CARE FOLLOWUP: With primary care provider on February 13, 2020 at 2 p.m., with Dr. Wu on February 21 at 1 p.m., with Dr. Lai on March 04 at 10:45 a.m. DISCHARGE DESTINATION: Home. TIME SPENT: Total amount of time spent coordinating this discharge: 32 minutes. Job ID: [id number]
--- NOTE | 2020-02-15 13:00 | EKG ---
Test Reason : Blood Pressure : / mmHG Vent. Rate : 082 BPM Atrial Rate : 082 BPM P-R Int : 158 ms QRS Dur : 102 ms QT Int : 382 ms P-R-T Axes : 061 -04 043 degrees QTc Int : 446 ms Normal sinus rhythm Possible Left atrial enlargement Borderline ECG Confirmed by DR. Michael HU ([id number]), make up editor MERLE WATERMAN ([id number]) on 02/15/2020 1:00:15 PM Referred By: Confirmed By:DR. Michael HU
== END 2020-02-12 10:21 | disposition home health service (06) | DRG 235 ==
LOC: ERS 07:44 → 2SW 11:46 → 2NO 18:03 → CCU 02-02 06:04 → 2NO 02-03 11:57
PROVIDERS: ADMIT Internal Medicine; ATTEND Internal Medicine
PROC: 02100Z9 Bypass Coronary Artery, One Artery from Left Internal Mammary, Open Approach (ICD-10-PCS; principal; 2020-02-02)
PROC: 0211093 Bypass Coronary Artery, Two Arteries from Coronary Artery with Autologous Venous Tissue, Open Approach (ICD-10-PCS; 2020-02-02)
PROC: 06BQ0ZZ Excision of Left Saphenous Vein, Open Approach (ICD-10-PCS; 2020-02-02)
PROC: 04QK0ZZ Repair Right Femoral Artery, Open Approach (ICD-10-PCS; 2020-02-02)
PROC: 5A1221Z Performance of Cardiac Output, Continuous (ICD-10-PCS; 2020-02-02)
PROC: 02HV33Z Insertion of Infusion Device into Superior Vena Cava, Percutaneous Approach (ICD-10-PCS; 2020-02-07)
PROC: B548ZZA Ultrasonography of Superior Vena Cava, Guidance (ICD-10-PCS; 2020-02-07)
DX: T82.7XXA Infection and inflammatory reaction due to other cardiac and vascular devices, implants and grafts, initial encounter (principal); I21.4 Non-ST elevation (NSTEMI) myocardial infarction; E87.1 Hypo-osmolality and hyponatremia; I48.92 Unspecified atrial flutter; L02.214 Cutaneous abscess of groin; I48.19 Other persistent atrial fibrillation; I25.118 Atherosclerotic heart disease of native coronary artery with other forms of angina pectoris; Z20.828 Contact with and (suspected) exposure to other viral communicable diseases; B95.62 Methicillin resistant Staphylococcus aureus infection as the cause of diseases classified elsewhere; I48.0 Paroxysmal atrial fibrillation; E78.5 Hyperlipidemia, unspecified; E11.42 Type 2 diabetes mellitus with diabetic polyneuropathy; J44.9 Chronic obstructive pulmonary disease, unspecified; I25.5 Ischemic cardiomyopathy; I11.0 Hypertensive heart disease with heart failure; E66.9 Obesity, unspecified; I72.4 Aneurysm of artery of lower extremity; Z68.30 Body mass index [BMI] 30.0-30.9, adult; Z79.84 Long term (current) use of oral hypoglycemic drugs; Z79.899 Other long term (current) drug therapy; Z91.14 Patient's other noncompliance with medication regimen; Z87.891 Personal history of nicotine dependence
CPT/HCPCS: 36415; 36416; 36430; 36569; 71045; 72156; 72157; 72158; 72193; 76999; 80048; 80053; 81003; 81015; 82553; 82947; 83605; 83735; 83880; 84484; 85025; 85610; 85730; 86850; 86900; 86901; 87040; 87070; 87086; 87102; 87205; 87206; 87635; 93005; 93010; 93306; 93798; 93926; 94640; 96365; 97139; A9579; C1751; J0690; J0692; J1642; J1644; J1650; J1815; J1885; J1940; J2250; J2260; J2405; J2440; J2700; J2720; J3010; J3370; J3475; J3480; J3490; J7030; J7620; P9045; Q0163; Q9967; S0017; S0028; U0003

== ENCOUNTER 2020-03-22 09:36 | Outpatient (CLI) | payer BC ==
--- NOTE | 2020-03-22 10:19 | RAD ---
PA AND LATERAL VIEWS CHEST: Date: 03/22/2020 HISTORY: Atherosclerotic heart disease of [place] coronary artery. COMPARISON: 02/03/2020. FINDINGS: Changes of median sternotomy again seen. There is interval development of complete opacification of t he left hemithorax. There is mild mediastinal shift to the right. This is suspicious for a large pleu ral effusion. The right lung is unremarkable. There are degenerative changes in the spine. IMPRESSION: Findings are suspicious for a large left pleural effusion. POS: AH
== END 2020-03-22 09:37 | disposition home or self-care (01) ==
LOC: BICRAD 09:36
PROVIDERS: ATTEND Thoracic Surgery (Cardiothoracic Vascular Surgery)
DX: I25.10 Atherosclerotic heart disease of native coronary artery without angina pectoris (principal)
CPT/HCPCS: 71046

== ENCOUNTER 2020-03-26 11:26 | Day surgery (SDC) | payer BC ==
--- NOTE | 2020-03-27 14:27 | OP ---
DATE OF PROCEDURE: 03/26/2020 PREOPERATIVE DIAGNOSIS: Large left pleural effusion, post coronary artery bypass grafting. PROCEDURE PERFORMED: Left thoracentesis. DESCRIPTION OF PROCEDURE: After a prolonged period of trying to navigate the patient through the hospital system to allow this to be done, he signed his consent informed and his left posterior chest was prepped and draped. The needle and catheter were then advanced and the catheter advanced over the needle, and 1800 mL of dark bloody fluid was removed and the patient tolerated the procedure well. Dressings were applied, and the patient was released to go home with his . Job ID: [id number]
--- NOTE | 2020-05-21 18:13 | SS ---
DATE OF ADMISSION: 03/26/2020 DATE OF DISCHARGE: 03/26/2020 This is a 59-year-old gentleman, who had undergone coronary artery bypass grafting for severe left ventricular dysfunction and coronary artery disease. He was discharged home. Followed up with me and was found to have a large left pleural effusion and essentially was lost to followup, not answering his phone calls or returning phone calls. Ultimately, he was reached and discussion was held for the need for thoracentesis. This was then again delayed due to the patient inability to find a slot in his work schedule to perform this. He is now being brought in. As mentioned, he had recent coronary artery bypass surgery. He has multiple cardiovascular risk factors. On examination, he is alert and cooperative gentleman, in no distress, but does get short-winded rather easily. He has diminished breath sounds throughout his left chest. His abdomen is soft and nontender and he has no peripheral edema. Plan at this time is for thoracentesis and informed consent has been obtained. Job ID: [id number]
== END 2020-03-26 12:08 | disposition home or self-care (01) ==
LOC: SDC/OP 11:26
PROVIDERS: ATTEND Thoracic Surgery (Cardiothoracic Vascular Surgery)
PROC: 0W9B3ZZ Drainage of Left Pleural Cavity, Percutaneous Approach (ICD-10-PCS; principal; 2020-03-26)
DX: J90 Pleural effusion, not elsewhere classified (principal); Z95.5 Presence of coronary angioplasty implant and graft
CPT/HCPCS: 32554

== ENCOUNTER 2020-04-12 09:39 | Outpatient (CLI) | payer BC ==
--- NOTE | 2020-04-12 10:13 | RAD ---
EXAM: CHEST TWO VIEWS 04/12/2020 10:10 AM HISTORY: History of atherosclerotic disease of the [place] coronary arteries COMPARISON: Prior exam dated March 22, 2020 FINDINGS: Lungs: There is persistent volume loss involving the left lower lobe and lingula. Right lung changes affecting the right lung is stable. There is a skinfold overlying the lateral margin of the lower right hemithorax. Heart: There is moderate cardiomegaly and stable post-CABG change Pulmonary Vessels: Normal. Costophrenic Angles: The large left sided pleural effusion has decreased in size. Moderate left-sided pleural effusion remains. No right-sided pleural effusion is evident. Pneumothorax: None. Osseous Structures: Intact. Additional Findings: There is scattered degenerative and osteoarthritic change present. IMPRESSION: Decreasing size of the large left pleural effusion. Moderate-sized left pleural effusion remains. Per sistent atelectasis of the left lower lobe and lingula.
== END 2020-04-12 09:40 | disposition home or self-care (01) ==
LOC: BICRAD 09:39
PROVIDERS: ATTEND Thoracic Surgery (Cardiothoracic Vascular Surgery)
DX: I25.10 Atherosclerotic heart disease of native coronary artery without angina pectoris (principal); J90 Pleural effusion, not elsewhere classified; J98.11 Atelectasis; J91.0 Malignant pleural effusion
CPT/HCPCS: 36415; 71046; 80048; 85025

== ENCOUNTER 2020-04-25 06:58 | Outpatient (CLI) | payer BC ==
[2020-04-25 20:25] LABS: SARS-CoV-2 MS2 Positive; SARS-CoV-2 N Gene Negative; SARS-CoV-2 S Gene Negative; SARS-CoV-2 by NAA Not Detected (NotDetected); SARS-CoV-2 orf1ab Negative
== END 2020-04-25 06:59 | disposition home or self-care (01) ==
LOC: LABBT 06:58
PROVIDERS: ATTEND Thoracic Surgery (Cardiothoracic Vascular Surgery)
DX: Z01.812 Encounter for preprocedural laboratory examination (principal); J90 Pleural effusion, not elsewhere classified; Z20.828 Contact with and (suspected) exposure to other viral communicable diseases
CPT/HCPCS: 87635; U0003

== ENCOUNTER 2020-04-26 09:35 | Day surgery (SDC) | payer BC ==
--- NOTE | 2020-04-25 10:12 | HP ---
This is for Day Stay visit on 04/26. HISTORY OF PRESENT ILLNESS: This is a 59-year-old who was initially seen with congestive heart failure and severe coronary artery disease. He also has a history of diabetes mellitus, hypertension, dyslipidemia, claudication, and paroxysmal atrial fibrillation. Post coronary artery bypass grafting, he developed a large left pleural effusion and had undergone thoracentesis for this. He has redeveloped some further and he is being brought in now for thoracentesis. His thoracentesis was on 03/26 and follow up was difficult, but eventually a chest x-ray was able to be obtained that showed significant fluid volume with this chest x-ray being on 04/12. This is the first opportunity the patient has had to come in for thoracentesis. MEDICATIONS: Include, 1. Coreg. 2. Eliquis. 3. Potassium. 4. Metformin. 5. Atorvastatin. 6. Aspirin. 7. Gabapentin. 8. Entresto. 9. Tresiba. 10. Lasix. PHYSICAL EXAMINATION: On examination, he is alert and cooperative gentleman, with diminished breath sounds, left base. Regular rate and rhythm with soft murmur. PLAN: Plan at this time is for repeat left thoracentesis. Job ID: [id number]
--- NOTE | 2020-04-26 11:54 | RAD ---
Portable frontal chest radiograph: 04/26/2020 COMPARISON: 04/12/2020 HISTORY: Status post thoracentesis FINDINGS: There is a moderate-sized left pleural effusion which has decreased slightly in size when c ompared to the 04/12/2020 exam. Midline sternotomy wires are present. Heart and mediastinal contours are stable. The right lung appears grossly unremarkable. IMPRESSION: Moderate unilateral left-sided pleural effusion, slightly decreased in size when compared to the 04/12/2020 exam. No pneumothorax.
--- NOTE | 2020-04-27 08:45 | OP ---
DATE OF PROCEDURE: 04/26/2020 PREOPERATIVE DIAGNOSIS: Left pleural effusion. POSTOPERATIVE DIAGNOSIS: Left pleural effusion. PROCEDURE PERFORMED: Thoracentesis, left, with drainage of about 1500 mL of dark pleural fluid. ANESTHESIA: 1% lidocaine. DESCRIPTION OF PROCEDURE: After infiltrating the skin posteriorly, the skin incision was made and a thoracentesis catheter was advanced and deployed. 1500 mL of slightly bloody fluid was aspirated and the patient tolerated the procedure well. Chest x-ray is pending. Job ID: [id number]
== END 2020-04-26 11:58 | disposition home or self-care (01) ==
LOC: SDC 09:35
PROVIDERS: ATTEND Thoracic Surgery (Cardiothoracic Vascular Surgery)
PROC: 0W9B3ZZ Drainage of Left Pleural Cavity, Percutaneous Approach (ICD-10-PCS; principal; 2020-04-26)
DX: J90 Pleural effusion, not elsewhere classified (principal); I11.0 Hypertensive heart disease with heart failure; I50.9 Heart failure, unspecified; I25.10 Atherosclerotic heart disease of native coronary artery without angina pectoris; I48.0 Paroxysmal atrial fibrillation; E11.9 Type 2 diabetes mellitus without complications; E78.5 Hyperlipidemia, unspecified; Z95.1 Presence of aortocoronary bypass graft; Z79.01 Long term (current) use of anticoagulants; Z79.82 Long term (current) use of aspirin; Z79.84 Long term (current) use of oral hypoglycemic drugs; Z79.899 Other long term (current) drug therapy
CPT/HCPCS: 32554; 71045; 87635; U0003